=== PATIENT | female | born 1980 | race African-American/Black ===

== ENCOUNTER 2017-12-09 08:18 | Emergency (ER) | payer OTHER, MEDICAID, SELFPAY ==
[2017-12-09 08:27] VITALS: BP 109/66; PULSE 112; RESP 22; TEMP 37.7; O2SAT 100; BMI 35.6
[2017-12-09 09:26] LABS: Strep Scrn Group A (Rapid) Negative (Negative)
--- NOTE | 2017-12-09 10:02 | HMH.EDNVD ---
ED Disposition Clinical Impression: Diarrhea, Viral illness Disposition: Home, Self-Care Condition on Discharge: Fair Additional Instructions: 1- rest. 2- off work x 2 days 3- [employer] 16 oz q 4 4- observe 4-5 uop a day. 5- diarrhea panel as outpatient and follow up with Dr Campos in AM for a recheck and results. 6- imodium 2 mg q 6 prn diarrhea and bactrim DS po bid x one week . 7- retrun if needed to the ED for any new sx or not better. Referrals: Sha Villasenor MD [Primary Care Provider] - - Critical Care Critical Care Time: No Attestation: On 12/09/17, the high probability of a clinically significant, sudden or life threatening deterioration of the following system(s) required my full and direct attention, intervention and personal management. The time I documented below is in addition to time spent performing reported procedures but includes the following listed in this critical care notation. Medical Decision Making Vital Signs: 12/09/17 08:27 Temperature 99.9 F H Temperature Source Oral Pulse Rate [Right Brachial] 112 H Respiratory Rate 22 Blood Pressure [Right Arm] 109/66 Blood Pressure Mean [Right Arm] 80 Blood Pressure Source [Right Arm] Automatic Cuff Blood Pressure Position [Right Arm] Sitting 02 Sat by Pulse Oximetry 100 Oxygen Delivery Method Room Air - Lab Data Lab Results 12/09/17 08:50: Influenza Type A Ag Negative, Influenza Type B Ag Negative, Group A Strep Rapid Negative Orders (Tests/Meds): ED MEDICATIONS Discontinued Medications Generic Name Dose Route Start Last Admin Trade Name Freq PRN Reason Stop Dose Admin Loperamide HCl 2 mg 12/09/17 08:47 12/09/17 08:49 Imodium 2 Mg Capsule PO 12/09/17 08:48 2 mg ONCE ONE Administration ORDERS Category Date Time Status Strep Screen Confirmation Stat Micro 12/09/17 08:50 Received - Agustin Inquiry Pt receiving controlled substance: No Agustin was queried for this patient: No Medical Decision Making Narrative: Patient tested negative for influenza and strep throat. She had no more episodes of diarrhea during her ED stay. Feel to provide a sense. I offered her to do labs and x-rays but she declined. She was agreeable to use antidiarrhea medicine and use oral rehydration. Just to her to do a diarrhea panel with a follow-up with her primary care physician as an outpatient, she agreed. I repeated her abdominal examination prior to discharge and it was soft benign with no guarding no rigidity but she was tender in the right CVA area. Again the patient declined labs and x-rays but she agreed to take Bactrim antibiotic because she took it before. Nausea/Vomiting/Diarrhea HPI - General Chief complaint: Upper Respiratory Infection Stated complaint: sore throat diaherra body aches Mode of Arrival: Family Vehicle Limitations: No Limitations Description of Symptoms (Recalled from ER Triage Doc. 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 He has no past medical history no past surgical history. He claims that at 5 PM yesterday she developed diffuse body aches followed by 2 bouts of watery diarrhea. She missed work this morning and she came to the ED. denies having weakness chest pain abdominal pain vomiting hematemesis coffee-ground emesis bleeding per rectum or melanotic stool. Although she works in a assisted but she denies coming in contact with somebody who had the flu or similar symptoms of diarrhea. Denies recent history of antibiotic use. complaint: diarrhea Onset (ago): day(s) (started 5 PM yesterday.) Description of Vomiting: watery (brown diarrhea. no blood . ) Associated Abdominal Pain: No Relieving factors: none Associated symptoms: denies other symptoms - Related Data Home Medications Medication Instructions Recorded Confirmed No Known Home
--- NOTE | 2017-12-09 10:05 | ED_ITS ---
ED Disposition Clinical Impression: Diarrhea, Viral illness Disposition: Home, Self-Care Condition on Discharge: Fair Additional Instructions: 1- rest. 2- off work x 2 days 3- [employer] 16 oz q 4 4- observe 4-5 uop a day. 5- diarrhea panel as outpatient and follow up with Dr Campos in AM for a recheck and results. 6- imodium 2 mg q 6 prn diarrhea and bactrim DS po bid x one week . 7- retrun if needed to the ED for any new sx or not better. Referrals: Sha Villasenor MD [Primary Care Provider] - - Critical Care Critical Care Time: No Attestation: On 12/09/17, the high probability of a clinically significant, sudden or life threatening deterioration of the following system(s) required my full and direct attention, intervention and personal management. The time I documented below is in addition to time spent performing reported procedures but includes the following listed in this critical care notation. Medical Decision Making Vital Signs: 12/09/17 08:27 Temperature 99.9 F H Temperature Source Oral Pulse Rate [Right Brachial] 112 H Respiratory Rate 22 Blood Pressure [Right Arm] 109/66 Blood Pressure Mean [Right Arm] 80 Blood Pressure Source [Right Arm] Automatic Cuff Blood Pressure Position [Right Arm] Sitting 02 Sat by Pulse Oximetry 100 Oxygen Delivery Method Room Air - Lab Data Lab Results 12/09/17 08:50: Influenza Type A Ag Negative, Influenza Type B Ag Negative, Group A Strep Rapid Negative Orders (Tests/Meds): ED MEDICATIONS Discontinued Medications Generic Name Dose Route Start Last Admin Trade Name Freq PRN Reason Stop Dose Admin Loperamide HCl 2 mg 12/09/17 08:47 12/09/17 08:49 Imodium 2 Mg Capsule PO 12/09/17 08:48 2 mg ONCE ONE Administration ORDERS Category Date Time Status Strep Screen Confirmation Stat Micro 12/09/17 08:50 Received - Agustin Inquiry Pt receiving controlled substance: No Agustin was queried for this patient: No Medical Decision Making Narrative: Patient tested negative for influenza and strep throat. She had no more episodes of diarrhea during her ED stay. Feel to provide a sense. I offered her to do labs and x-rays but she declined. She was agreeable to use antidiarrhea medicine and use oral rehydration. Just to her to do a diarrhea panel with a follow-up with her primary care physician as an outpatient, she agreed. I repeated her abdominal examination prior to discharge and it was soft benign with no guarding no rigidity but she was tender in the right CVA area. Again the patient declined labs and x-rays but she agreed to take Bactrim antibiotic because she took it before. Nausea/Vomiting/Diarrhea HPI - General Chief complaint: Upper Respiratory Infection Stated complaint: sore throat diaherra body aches Mode of Arrival: Family Vehicle Limitations: No Limitations Description of Symptoms (Recalled from ER Triage Doc. 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 He has no past medical history no past surgical history. He claims that at 5 PM yesterday she developed diffuse body aches followed by 2 bouts of watery diarrhea. She missed work this morning and she ca
--- NOTE | 2017-12-09 10:18 | PC.NURSE ---
OFFERED TO DO LABS AND XRAYS ON PT BUT PT DECLINED. PT TO HAVE OUTPT DIARRHEA PANEL WITH THE RESULTS CALLED TO DR. DEL CID'S OFFICE. THIS IS PTS PCP.
[2017-12-09 10:19] VITALS: BP 97/61; PULSE 89; RESP 20; TEMP 37.3; O2SAT 96
== END 2017-12-09 10:30 | disposition home or self-care (01) ==
PROVIDERS: Emergency Provider Emergency Medicine; Family Provider Emergency Medicine; PCP Emergency Medicine
DX: B34.9 Viral infection, unspecified (principal); R19.7 Diarrhea, unspecified
CPT/HCPCS: 87275; 87276; 87430; 99282

== ENCOUNTER 2017-12-14 17:09 | Emergency (ER) | payer OTHER, MEDICAID, SELFPAY ==
[2017-12-14 17:25] VITALS: BP 124/85; PULSE 65; RESP 20; TEMP 36.9; O2SAT 100; BMI 34.9
--- NOTE | 2017-12-14 18:06 | HMH.EDUTC ---
[facility] – [place] Disposition Clinical Impression: Acute bronchitis Qualifiers: Bronchitis organism: unspecified organism Qualified Code(s): J20.9 - Acute bronchitis, unspecified Disposition: Home, Self-Care Condition on Discharge: Good Instructions: DI for Acute Bronchitis Additional Instructions: * start antibiotic today. Be sure to complete entire prescription even if feeling better. * Monitor Temp. Tylenol every 4 hours as needed no more then 5 times a day or 4000mg in 24 hours and/or ibuprofen every 6 hours as needed no more then 3200mg in 24 hours (as long as your primary care doctor has told you that it is ok to take both) for fever/aches/pain. ER if fever no less than 101 despite tylenol and ibuprofen * humidifier/vaporizer/hot steamy shower * Inhaler every 4-6 hours as needed like we discussed. If unsure how to use it, ask pharmacist to demonstrate how. Should help open airways and improve cough, wheezing, shortness of breath. * Mucinex during the day for your cough and cough suppressant only at night. Be sure to drink lots of water. Insurance may not cover a prescription of mucinex. Might be cheaper to get 400mg tablets and take 2 tablets morning, midday and evening all with lots of water. * Promethazine DM cough syrup will cause drowsiness. Use it only at night. No driving, operating machinery or caring for small children after taking it. * Start steroid today. Helps with inflammation therefore, cough and wheezing. Follow directions on package. Prescriptions: Albuterol Sulfate [Albuterol HFA Inhaler] 1 - 2 puffs IH Q4-6H PRN #1 inh PRN Reason: Shortness Of Breath Or Wheezing Azithromycin [Z-Andrew 250mg Tab] 250 mg PO UD DOSE PK #6 tab methylPREDNISolone [Medrol] 4 mg PO DIRECTED #1 tab.ds.pk Promethazine/Dextromethorphan [Promethazine-Dm Syrup] 5 - 10 ml PO HS PRN #120 ml MDD 30ML/DAY PRN Reason: Cough Referrals: Sha Villasenor MD [Primary Care Provider] - (IMMEDIATELY for new or worsening symptoms OR no noticeable improvement over the next 48-72 hours. 911 for difficulty breathing) Forms: Work/School Release Time of Disposition: 19:01 Medical Decision Making Vital Signs: 12/14/17 17:25 Temperature 98.5 F Temperature Source Temporal Artery Scan Pulse Rate [Left Brachial] 65 Respiratory Rate 20 Blood Pressure [Left Arm] 124/85 Blood Pressure Mean [Left Arm] 98 Blood Pressure Source [Left Arm] Automatic Cuff Blood Pressure Position [Left Arm] Sitting 02 Sat by Pulse Oximetry 100 Oxygen Delivery Method Room Air - Lab Data Lab results reviewed: Yes: I reviewed the patient's lab results. Lab Results 12/14/17 17:25: Influenza Type A Ag Negative, Influenza Type B Ag Negative Orders (Tests/Meds): ORDERS Category Date Time Status CXR 2 view (NOT portable) [XR chest 2V] Stat Exams 12/14/17 18:13 Taken - Radiology Data #1 Image(s): Chest Image Reviewed: Yes I reviewed the patient's radiology image w/the ED provider Preliminary Findings: Normal/NAD rvwd w/ Dr Saba Velez Inquiry Pt receiving controlled substance: No [facility] [place] HPI - General Stated complaint: chest congestion Time Seen by Provider: 12/14/17 18:06 Mode of Arrival: Ambulatory Source of Information: Patient Limitations: No Limitations Description of Symptoms (Recalled from Triage Doc. by RN): C/O CHEST HURTING, CHEST CONGESTION, SORE THROAT, COUGH HEENT Symptoms (Recalled from RN notes): Yes (SORE THROAT) Resp Symptoms (Recalled from RN notes): Yes (CHEST CONGESTIION, COUGH, CHEST HURTING) Skin Symptoms (Recalled from RN notes): No MS Symptoms (Recalled from RN notes): No Functional Status (Recalled from RN notes): N/A - History of Present Illness Provider Complaint: c/o cough, chest congestion, bodyaches, chills. Started w/ N/V/D/ fever 100-101 on , 5 days ago. Came to ER. Neg flu and strep. Dx 24 hour GI virus . N/V/D/ fever resolved with immodium but aches, chills, nonprod cough, rhinorrhea, sore throat
--- NOTE | 2017-12-14 18:13 | ED_ITS ---
[facility] [place] Clinical Impression: Acute bronchitis Qualifiers: Bronchitis organism: unspecified organism Qualified Code(s): J20.9 - Acute bronchitis, unspecified Disposition: Home, Self-Care Condition on Discharge: Good Instructions: DI for Acute Bronchitis Additional Instructions: * start antibiotic today. Be sure to complete entire prescription even if feeling better. * Monitor Temp. Tylenol every 4 hours as needed no more then 5 times a day or 4000mg in 24 hours and/or ibuprofen every 6 hours as needed no more then 3200mg in 24 hours (as long as your primary care doctor has told you that it is ok to take both) for fever/aches/pain. ER if fever no less than 101 despite tylenol and ibuprofen * humidifier/vaporizer/hot steamy shower * Inhaler every 4-6 hours as needed like we discussed. If unsure how to use it, ask pharmacist to demonstrate how. Should help open airways and improve cough, wheezing, shortness of breath. * Mucinex during the day for your cough and cough suppressant only at night. Be sure to drink lots of water. Insurance may not cover a prescription of mucinex. Might be cheaper to get 400mg tablets and take 2 tablets morning, midday and evening all with lots of water. * Promethazine DM cough syrup will cause drowsiness. Use it only at night. No driving, operating machinery or caring for small children after taking it. * Start steroid today. Helps with inflammation therefore, cough and wheezing. Follow directions on package. Prescriptions: Albuterol Sulfate [Albuterol HFA Inhaler] 1 - 2 puffs IH Q4-6H PRN #1 inh PRN Reason: Shortness Of Breath Or Wheezing Azithromycin [Z-Andrew 250mg Tab] 250 mg PO UD DOSE PK #6 tab methylPREDNISolone [Medrol] 4 mg PO DIRECTED #1 tab.ds.pk Promethazine/Dextromethorphan [Promethazine-Dm Syrup] 5 - 10 ml PO HS PRN #120 ml MDD 30ML/DAY PRN Reason: Cough Referrals: Sha Villasenor MD [Primary Care Provider] - (IMMEDIATELY for new or worsening symptoms OR no noticeable improvement over the next 48-72 hours. 911 for difficulty breathing) Forms: Work/School Release Time of Disposition: 19:01 Medical Decision Making Vital Signs: 12/14/17 17:25 Temperature 98.5 F Temperature Source Temporal Artery Scan Pulse Rate [Left Brachial] 65 Respiratory Rate 20 Blood Pressure [Left Arm] 124/85 Blood Pressure Mean [Left Arm] 98 Blood Pressure Source [Left Arm] Automatic Cuff Blood Pressure Position [Left Arm] Sitting 02 Sat by Pulse Oximetry 100 Oxygen Delivery Method Room Air - Lab Data Lab results reviewed: Yes: I reviewed the patient's lab results. Lab Results 12/14/17 17:25: Influenza Type A Ag Negative, Influenza Type B Ag Negative Orders (Tests/Meds): ORDERS Category Date Time Status CXR 2 view (NOT portable) [XR chest 2V] Stat Exams 12/14/17 18:13 Taken - Radiology Data #1 Image(s): Chest Image Reviewed: Yes I reviewed the patient's radiology image w/the ED provider Preliminary Findings: Normal/NAD rvwd w/ Dr Saba Velez Inquiry Pt receiving controlled substance: No [facility] [place] - General Stated complaint: chest congestion Time Seen by Provider: 12/14/17 18:06 Mode of Arrival: Ambulatory Source of Information: Patient Limitations: No Limitations Description of Symptoms (Recalled from Triage Doc. by RN): C/O CHEST HURTING, CHEST CONGESTION, SORE THROAT, COUGH HEENT Symptoms (Recalled from RN notes): Yes (SORE THROAT) Res
--- NOTE | 2017-12-14 18:13 | XR_ITS ---
XR chest 2V HISTORY: Cough and congestion ITS.REASON: flu like symptoms, worsening cough, previous smoke ORDERING PHYSICIAN: Demetrius Richards PATIENT AGE: 37 years COMPARISON: None available FINDINGS: Mild prominence of the cardiac silhouette. No CHF. Lungs are clear. No acute bony anomalies. IMPRESSION: Mild cardiomegaly otherwise negative
[2017-12-14 18:21] LABS: UTC Influenza A Antigen Negative (Negative); UTC Influenza B Antigen Negative (Negative)
[2017-12-14 19:13] VITALS: BP 136/92; PULSE 79; RESP 20; TEMP 36.6
== END 2017-12-14 19:13 | disposition home or self-care (01) ==
PROVIDERS: Emergency Provider Nurse Practitioner Family; Family Provider Emergency Medicine; PCP Emergency Medicine
DX: J20.9 Acute bronchitis, unspecified (principal); Z87.891 Personal history of nicotine dependence
CPT/HCPCS: 71046; 87804; 99202

== ENCOUNTER → 2018-03-10 12:04 | Outpatient (CLI) | payer OTHER, MEDICAID, SELFPAY ==
[2018-03-10 14:11] LABS: HCG,Quantitative 3286 mIU/mL
== END ==
PROVIDERS: Visit Provider Nurse Practitioner Obstetrics & Gynecology
DX: Z34.90 Encounter for supervision of normal pregnancy, unspecified, unspecified trimester (principal)
CPT/HCPCS: 36415; 84702

== ENCOUNTER → 2018-03-14 11:42 | Outpatient (CLI) | payer OTHER, MEDICAID, SELFPAY ==
[2018-03-14 12:01] LABS: Basophils % 0.5 % (0.1-2.0); Eosinophils # 0.2 K/mm3 (0.0-0.4); Eosinophils % 3.9 % (0.1-12.0); Hematocrit 35.2 % (37.0-47.0); Hemoglobin 11.4 g/dL (12.2-16.2); Lymphocytes # 1.7 K/mm3 (0.7-4.5); Mean Corpuscular HGB Conc 32.5 g/dL (31.8-35.4); Mean Corpuscular Hemoglobin 28.3 pg (27.0-31.2); Mean Corpuscular Volume 87.1 fl (81-99); Mean Platelet Volume 7.4 fl (7.4-10.4); Monocytes # 0.3 K/mm3 (0.1-1.0); Monocytes % 5.5 % (1.7-9.3); Neutrophils # 3.5 K/mm3 (1.8-7.8); Neutrophils % 60.1 % (37.0-80.0); Platelet Count 349 K/mm3 (142-424); Red Blood Count 4.04 M/mm3 (4.20-5.40); Red Cell Distribution Width 12.6 % (11.5-17.5); White Blood Count 5.8 K/mm3 (4.8-10.8)
[2018-03-15 09:16] LABS: Rapid Plasma Reagin Ab Titer Non Reactive (NonRea<1:1)
[2018-03-15 14:30] LABS: HIV Screen 4th Generation wRfx Non Reactive (Non Reactive); Hepatitis B Surface Antigen Negative (Negative); Hepatitis C Antibody <0.1 s/co ratio (0.0-0.9)
== END ==
PROVIDERS: Family Provider Emergency Medicine; PCP Emergency Medicine; Visit Provider Nurse Practitioner Obstetrics & Gynecology
DX: Z34.90 Encounter for supervision of normal pregnancy, unspecified, unspecified trimester (principal)
CPT/HCPCS: 36415; 85025; 86592; 86703; 86762; 86850; 87340; 87380; G0432

== ENCOUNTER → 2018-03-18 10:14 | Outpatient (CLI) | payer OTHER, MEDICAID, SELFPAY ==
--- NOTE | 2018-03-18 10:15 | US_ITS ---
US OB transvaginal Ordering Physician: Marquise Kelly MD Patient Age: 37 years: Female HISTORY: ITS.REASON: US OB Dates Early OB for dates TECHNIQUE: Transvaginal scanning COMPARISON : FINDINGS Single viable intrauterine gestation Cervix long and closed. . Early embryo with heart flicker noted. Yolk sac 0.57 cm. Heart rate = 128 BPM CRL = 0.7 cm = 6 weeks 5 days. With this the ultrasound EDWARDO = 11/06/2018 (This is compared to gestational age of 7 weeks 3 days based on LMP of 01/25/2018.) LEFT OVARY:. Nearly 5 cm x 2.85 cm x 2.3 cm. ] Cyst at left ovary measures 1.8 cm left & likely reflects corpus luteum cyst. Scattered other small follicles left ovary. RIGHT OVARY: 2.65 cm x 2.4 cm x 2.75 cm. . Right ovary appears normal. No fluid in cul-de-sac IMPRESSION: Single viable intrauterine gestation . Cardiac activity identified. [place]-rump length = 6 weeks 5 days Corpus luteum cyst left ovary noted right ovary unremarkable
== END ==
PROVIDERS: Family Provider Emergency Medicine; PCP Emergency Medicine; Visit Provider Nurse Practitioner Obstetrics & Gynecology
DX: O26.841 Uterine size-date discrepancy, first trimester (principal)
CPT/HCPCS: 76830

== ENCOUNTER → 2018-04-11 17:47 | Outpatient (REF) | payer OTHER, MEDICAID, SELFPAY ==
[2018-04-14 06:19] LABS: Neisseria gonorrhoeae, NAA Negative (Negative)
== END ==
LOC: LAB 17:47
PROVIDERS: Visit Provider Nurse Practitioner Obstetrics & Gynecology
DX: Z34.90 Encounter for supervision of normal pregnancy, unspecified, unspecified trimester (principal)
CPT/HCPCS: 87491; 87591

== ENCOUNTER 2018-06-10 20:14 | Observation (INO) ==
[2018-06-10 20:46] LABS: Basophils % 0.4 % (0.1-2.0); Eosinophils # 0.2 K/mm3 (0.0-0.4); Eosinophils % 2.3 % (0.1-12.0); Hematocrit 32.3 % (37.0-47.0); Hemoglobin 10.8 g/dL (12.2-16.2); Lymphocytes # 1.7 K/mm3 (0.7-4.5); Lymphocytes % 16.7 K/mm3 (10-50); Mean Corpuscular HGB Conc 33.4 g/dL (31.8-35.4); Mean Corpuscular Hemoglobin 28.8 pg (27.0-31.2); Mean Corpuscular Volume 86.4 fl (81-99); Mean Platelet Volume 7.2 fl (7.4-10.4); Monocytes # 0.6 K/mm3 (0.1-1.0); Monocytes % 5.9 % (1.7-9.3); Neutrophils # 7.6 K/mm3 (1.8-7.8); Neutrophils % 74.8 % (37.0-80.0); Platelet Count 326 K/mm3 (142-424); Red Blood Count 3.73 M/mm3 (4.20-5.40); Red Cell Distribution Width 12.7 % (11.5-17.5); White Blood Count 10.2 K/mm3 (4.8-10.8)
[2018-06-10 20:48] LABS: Activated Partial Thrombo Time 26.8 seconds (23.6-34.0); INR 0.96 (0.9-1.1); Prothrombin Time 9.9 seconds (9.4-11.8)
[2018-06-10 20:58] LABS: Albumin Level 2.9 gm/dL (3.4-5.0); Albumin/Globulin Ratio 0.6 (1.1-1.8); Anion Gap 11.6 mEq/L (5-15); Bilirubin,Total 0.3 mg/dL (0.2-1.0); Calcium 9.1 mg/dL (8.5-10.1); Globulin 4.6 gm/dl (1.3-3.2); Potassium 3.6 mmoL/L (3.5-5.1); Total Protein,Serum 7.5 gm/dL (6.4-8.2)
[2018-06-10 22:03] LABS: Appearance,Urine SL CLOUDY (Clear); Bilirubin,Urine Negative (Negative); Blood, Urine Negative (Negative); Color,Urine YELLOW (Yellow); Glucose,Urine (UA) Negative (Negative); Ketones,Urine Negative (Negative); Leukocyte Esterase,Urine Negative (Negative); Microscopic, Urine URINE MICROSCOPIC (MICROSCOPIC); PH,Urine 7.5 (5.0-8.5); Protein,Urine 1+ (Negative); Urobilinogen,Urine 0.2 EU/dl (0.2)
[2018-06-10 22:11] LABS: Amphetamine/Metha Screen,Urine Negative ng/mL (<1000); Barbiturates Screen,Urine Negative ng/mL (<200); Benzodiazepines Screen,Urine Negative ng/mL (<200); Cannabinoid Screen,Urine Negative ng/mL (<50); Cocaine Screen,Urine Negative ng/mL (<300); Methadone Screen,Urine Negative ng/mL (<300); Opiate Screen,Urine Negative ng/mL (<300); Phencyclidine Screen,Urine Negative ng/mL (<25)
[2018-06-10 22:32] LABS: Amorphous Sediment,Urine 3+ /lpf; Bacteria,Urine 1+ /lpf; WBC,Urine Occasional #/hpf (0-3)
--- NOTE | 2018-06-10 23:58 | History & Physical Report ---
OB - H&P: HPI Antepartum - History of Present Illness Chief complaint: prolapsed umbilical cord History of present illness: 37 yo presented to ED this evening with complaint of prolapsing umbilical cord. EGA 19 wks with EDC 11/06/18 (by 6 wk ultrasound); established patient of Dr. Kelly and had received care in his office with this , but recently transferred to Dr. Jimenez in [place] after 05/09/18 visit. She had only [address] Jimenez this past Wednesday06/07/18. She reports that she experienced a gush of clear fluid on Wednesday06/05/18, and has been continuously leaking fluid since that time. She reported these symptoms to Dr. Jimenez's office during her appointment on 06/07. She reports that +FHT were noted on 06/07 via doppler but that no physical exam or ultrasound were done at this appointment; she also reports that the physician did not comment about her leakage of fluid. She was scheduled for an ultrasound for anatomical survey at 20 wks in [place] and a return office appointment in 4 weeks. She continued to leak fluid throughout the week and has been wearing a pad since last Wednesday. She denies any vaginal bleeding, purulent vaginal discharge , acute abdominal pain, fever or chills. She was at work tonight and having lower abdominal/pelvic cramping and thought she needed to have a bowel movement. She went to the bathroom and noticed a prolapsed cord when she wiped after voiding. A small amount of vaginal bleeding was noted at that time, and she presented to the ED at [facility]. Upon confirmation of prolapsed POC, she was transferred up to L&D. When she arrived on L&D, an avulsed end of the umbilical cord was noted prolapsing through vaginal introitus. Vaginal bleeding was small/stable, and she was having moderate abdominal cramps. No heart tones were present, and IUFD was confirmed. Shortly after she was moved into labor bed, while medical history was being obtained, she reported the sensation that something had come out of her. An intact fetus had delivered into the bed, without any connection to the umbilical cord. No signs of life or heartbeat were present in the fetus, although it was not noted to be macerated. The fetus and expelled blood were foul smelling, but no purulence was identified. Temperature 99.3 and other vital signs stable. A cord clamp was placed on the end of the umbilical cord, which was still attached to the placenta, and a lavonne clamp placed distal to the cord clamp. Gental traction was placed on the cord, with avulsion of a 3cm segment of cord. A lavonne clamp was used to grasp the distal end of the cord before it retracted into the vagina. Cytotec 400 mcg was placed MI and the patient was consented for possible D&C in the event that retained placenta did not spontaneously deliver. After informed consent was obtained, she was given Stadol 1mg IV in response to request for pain medication. She was also given Ampicillin 2gm IV, Clindamycin 900mg IV and Flagyl 500mg IV. The patient continued to experience moderate/severe cramping but no spontaneous delivery of placental tissue. She was advised of the need for D&C to evacuate the retained placenta and the OR was prepped. Labs: WBC 10.2, Hgb 10.8, UDS negative, PT 9.9, PTT 0.96 - History of Present Criteria for establishing EDC:: LMP confirmed by 1st trimester US care: good care Ultrasounds: normal 1st trimester US Obstetrical complications: other (h/o 4 previous elective terminations and 2 spontaneous terminations) Medical complications: other (h/o cocaine addiction) - Labs Blood type: O (+) positive Rubella: immune RPR/VDRL: nonreactive HBsAG: negative HMH History I have reviewed the patient's past medical history: Yes Medical History: Denies:: Cancer, Diabetes Mellitus Type 1, Diabetes Mellitus Type 2, Hypertension, MRSA Other Surgeries: Yes: Dilation and Curettage (x 4) Amputation: No Fractures: No - *Social History Smoking Status: Former smoker Tobacco Type: cigarettes # Packs/Day (cigarettes): 15 Alcohol Intake: never Substance Use Type: former substance user *Family Hx:: Diabetes : 7 Para: 0 A: 6 (4 EAB, 2 SAB) Review of Systems - Review of Systems Review of systems:: pertinent systems reviewed and negative unless documented below - Constitutional Denies chills, Denies fever(s) - Eyes Denies change in vision - ENT Denies mouth lesions - *Cardiovascular Denies chest pain - *Respiratory Denies shortness of breath - *Gastrointestinal Reports abdominal pain, Reports cramping, Reports nausea, Denies vomiting - *Genitourinary Reports abnormal vaginal bleeding, Reports vaginal discharge (leaking amniotic fluid), Denies painful urination, Denies genital lesions - *Musculoskeletal Denies back pain - Integumentary/Breasts Denies rash - *Neurologic Denies confusion, Denies tingling/numbness/burning sensations, Denies dizziness - Psychiatric Denies anxiety, Denies depression - Hematologic/Lymphatic Denies easy bleeding, Denies easy bruising Meds Home Medications Medication Instructions Recorded Confirmed Type 1 tab PO QHS 04/11/18 06/10/18 History vitamin,calcium,chfggwzu-htfw-kwdce acid tablet Allergies Allergy/AdvReac Type Severity Reaction Status Date / Time No Known Allergies Allergy Verified 06/10/18 19:49 OB - H&P: Exam - Physical Exam Vital signs: Temp Pulse Resp BP Pulse Ox 99.3 F 77 22 139/74 98 06/10/18 21:16 06/10/18 21:16 06/10/18 21:16 06/10/18 21:16 06/10/18 21:16 - Constitutional no acute distress - Routine HEENT Exam Eye: Absent: conjunctival icterus, scleral injection ENT: Present: mucous membranes moist - Routine Respiratory Exam Present: CTA bilaterally. Absent: respiratory distress - Routine Cardiovascular Exam Present: RRR. Absent: tachycardia - Routine Abdominal Exam Present: soft. Absent: tenderness, distended, rebound, guarding, rigid - Routine Exam External: Absent: tenderness, lesions Comments: + foul smelling discharge, active drainage amniotic fluid and vaginal bleeding - Routine Extremities Exam Absent: edema - Routine Skin Exam Absent: rash - Routine Neurological Exam Present: alert, oriented X3. Absent: altered mental status - Routine Psychiatric Exam Present: normal affect - Additional findings No heart tones OB - Results - Labs Labs: Short CBC 06/10/18 Range/Units 20:07 WBC 10.2 (4.8-10.8) K/mm3 Hgb 10.8 L (12.2-16.2) g/dL Hct 32.3 L (37.0-47.0) % Plt Count 326 (142-424) K/mm3 [facility] 06/10/18 20:07 Sodium 136 Potassium 3.6 Chloride 102 Carbon Dioxide 26 BUN 7 Creatinine 0.64 Glucose 99 Calcium 9.1 Liver Function 06/10/18 Range/Units 20:07 Total Bilirubin 0.3 (0.2-1.0) mg/dL AST 13 L (15-37) U/L ALT 17 (12-78) U/L Alkaline Phosphatase 108 (46-116) U/L Albumin 2.9 L (3.4-5.0) gm/dL Urine 06/10/18 Range/Units 21:57 Urine Color Yellow (Yellow) Urine Appearance Sl cloudy (Clear) Urine pH 7.5 (5.0-8.5) Ur Specific [place] 1.020 (1.005-1.030) Urine Protein 1+ (Negative) Urine Glucose (UA) Negative (Negative) OB - A/P Antepartum (1) demise, less than 22 weeks Current visit: Yes Status: Acute (2) premature rupture of membranes Current visit: Yes Status: Acute (3) Chorioamnionitis Current visit: Yes Status: Acute (4) Retained placenta after delivery without hemorrhage but with other complication Current visit: Yes Status: Acute (5) Anemia affecting in second trimester Current visit: Yes Status: Acute (6) History of elective Problem details: x 4 Current visit: Yes Status: Acute - Additional Plan Additional Information:: Normal vaginal delivery of IUFD Retained placenta--consented for D&C; will proceed to OR Plan placenta to pathology Chornioamnionitis after prolonged ROM x 6 days--given amp, clinda, caitlin
--- NOTE | 2018-06-11 00:52 | Progress Note ---
[facility] Anesthesia Checklist - Patient Identification Patient Identification: Arm Band, Verbal (Name & ) (f) - Structural Data Admitted From: Inpatient Planned Operative Procedure/s: Suction D&C Consent for Planned Operative Procedure(s) Verified: Yes Verified Documents: Surgical Consent, History and Physical - NPO Status Verified Time NPO: 17:30 - Additional verifications Patient : Yes Anesthesia Reactions: No - Airway Assessment C-Spine Mobility Assessed: Yes TMJ Mobility Assessed: Yes Dentition: Good Dentition - Neurological Assessment Level of Consciousness: Awake Hx Seizures: No Numbness or tingling in extremities: No - Anesthesia Plan Anesthesia Risk discussed: Yes Anesthesia Plan: Verified ASA Class: II (Emergent) Anesthesia Type: General [facility] Anesthesia HX I have reviewed the patient's past medical history: Yes Medical History: Denies:: Cancer, Diabetes Mellitus Type 1, Diabetes Mellitus Type 2, Hypertension, MRSA Other Medical History: Reports: Other (hx of alcoholism, hx of drug abuse, obesity) Other Surgeries: No: No Previous Surgery, Amputation: No Fractures: No *Family Hx:: Diabetes
--- NOTE | 2018-06-11 00:53 | Progress Note ---
[facility] Anesthesia Record Part I Intake, IV Amount: 400 Estimated blood loss (mL): 300 Urine output (mL): 0 Blood Products used (#): none Blood Pressure: 123/76 SaO2: 100 Pulse Rate: 100 Respiratory Rate: 12 Temperature: 97.6 F Patient is:: Drowsy, Nasal O2, Stable Stable to PACU at:: 00:45
--- NOTE | 2018-06-11 00:54 | Progress Note ---
[facility] Anesthesia Record Part II Discharge Time: 01:15 Destination: Medical Surgical Department PACU nurse assessment reviewed?: Yes Patient Condition:: Good Anesthesia Complications:: None
--- NOTE | 2018-06-11 01:33 | Operative Note ---
Date of procedure: 06/11/18 Pre-op Diagnosis:: 1. PPROM 2. IUFD 3. Chorioamnionitis 4. Retained placenta after of IUFD 5. Anemia Post-op Diagnosis:: same Procedure performed:: Dilation and Curettage Surgeon:: Rima Benoit MD Anesthesia: AALIYAH Estimated blood loss (mL): 300 Operative findings:: retained placenta, grossly infected POC within uterus Operative note:: The patient was taken to the OR and general anesthesia administered. She was prepped/draped in lithotomy position. A weighted speculum was placed in vagina and villareal retractor used anteriorly. A large amount of the total placental tissue was prolapsing through the cervix and within the vaginal vault. This tissue was grasped with a ring forcep and removed with traction through the cervix. A single tooth tenaculum was placed on anterior lip of cervix. A #10 curved curette was used with the suction and curettage was performed over all norman of the uterine cavity. Sharp curettage was also performed until all tissue was removed from the uterus. Once the cavity texture confirmed all POC had been successfully evacuated from the uterus, all instruments were removed from her vagina, she was taken out of lithotomy position and awakened from anesthesia. She was taken to the PACU in stable condition. Condition: stable Disposition: PACU Specimens:: Placenta Complications:: none
[2018-06-11 07:28] LABS: Basophils % 0.1 % (0.1-2.0); Eosinophils # 0.3 K/mm3 (0.0-0.4); Eosinophils % 2.1 % (0.1-12.0); Hematocrit 30.9 % (37.0-47.0); Hemoglobin 10.1 g/dL (12.2-16.2); Lymphocytes # 0.7 K/mm3 (0.7-4.5); Lymphocytes % 4.1 K/mm3 (10-50); Mean Corpuscular HGB Conc 32.8 g/dL (31.8-35.4); Mean Corpuscular Hemoglobin 28.9 pg (27.0-31.2); Mean Platelet Volume 7.7 fl (7.4-10.4); Monocytes # 0.2 K/mm3 (0.1-1.0); Neutrophils # 14.7 K/mm3 (1.8-7.8); Neutrophils % 92.7 % (37.0-80.0); Platelet Count 312 K/mm3 (142-424); Red Blood Count 3.51 M/mm3 (4.20-5.40); Red Cell Distribution Width 12.9 % (11.5-17.5); White Blood Count 15.9 K/mm3 (4.8-10.8)
[2018-06-11 07:41] LABS: Lymphocytes % 4 % (10-50); Neutrophils % 96 % (42-76); RBC Morphology Normal; Total Cells Counted 100
--- NOTE | 2018-06-11 11:17 | Pharmacy Consult Notes ---
[facility] Pharmacy VTE Monitoring - Patient Demographics Admission date: 06/11/18 Report Date: 06/11/18 Time: 11:17 Allergies/Adverse Reactions: Patient Allergies No Known Allergies Allergy (Verified 06/11/18 01:41) Height: 1.65 m Weight: 95.368 kg Patient Problems: Current Active Problems Retained placenta after delivery without hemorrhage but with other complication (Acute) History of elective (Acute) Anemia affecting in second trimester (Acute) demise, less than 22 weeks (Acute) Chorioamnionitis (Acute) premature rupture of membranes (Acute) - VTE Risk Labs: VTE Related Lab Results Hgb 10.1 g/dL (12.2-16.2) L 06/11/18 07:20 Hct 30.9 % (37.0-47.0) L 06/11/18 07:20 Plt Count 312 K/mm3 (142-424) 06/11/18 07:20 PT 9.9 seconds (9.4-11.8) 06/10/18 20:07 INR 0.96 (0.9-1.1) 06/10/18 20:07 APTT 26.8 seconds (23.6-34.0) 06/10/18 20:07 BUN 7 mg/dL (7-18) 06/10/18 20:07 Creatinine 0.64 mg/dL (0.55-1.02) 06/10/18 20:07 Estimated Creat Clear 188 mL/min (0-300) 06/10/18 20:07 Was VTE Risk Assessment Performed: Yes VTE Score: 1 VTE Risk Level: Very Low Risk - Prophylaxis Types of VTE Prophylaxis: IPCS Thigh High (ICDS) Location of Applied Device: Bilateral Lower Extremeties
--- NOTE | 2018-06-11 12:06 | Discharge Summary ---
General - General Admission date:: 06/10/18 Discharge date: 06/11/18 HPI HPI: PPD #1 of 19 wk IUFD POD #1 D&C for retained placenta Tolerating regular diet, ambulating and voiding without difficulty Hospital Course Hospital Course: see HPI Objective Vital signs: Temp Pulse Resp BP Pulse Ox 98.9 F 84 18 105/62 97 06/11/18 08:10 06/11/18 08:10 06/11/18 08:10 06/11/18 08:10 06/11/18 08:50 no acute distress - *Routine HEENT Exam Head: Present: normocephalic, atraumatic ENT: Present: mucous membranes moist - *Routine Abdominal Exam Present: soft. Absent: tenderness, distended, guarding - *Routine Extremities Exam Present: edema. Absent: calf tenderness - *Routine Skin Exam Present: intact, dry. Absent: rash - *Routine Neurological Exam Present: alert, oriented X3 - Routine Psychiatric Exam Absent: depressed, anxious Results Labs on day of discharge: Labs from last 24 hours 06/11/18 06/10/18 06/10/18 07:20 23:15 21:57 WBC 15.9 H D RBC 3.51 L Hgb 10.1 L Hct 30.9 L MCV 88.0 MCH 28.9 MCHC 32.8 RDW 12.9 Plt Count 312 MPV 7.7 Neut % (Auto) 92.7 H Lymph % (Auto) 4.1 L [place] % (Auto) 1.0 L Eos % (Auto) 2.1 Baso % (Auto) 0.1 Neut # (Auto) 14.7 H Lymph # (Auto) 0.7 [place] # (Auto) 0.2 Eos # (Auto) 0.3 Baso # (Auto) 0.0 Total Counted 100 Neutrophils % (Manual) 96 H Lymphocytes % (Manual) 4 L Platelet Estimate Normal RBC Morphology Normal PT INR APTT Sodium Potassium Chloride Carbon Dioxide Anion Gap BUN Creatinine Estimated Creat Clear Estimated GFR Est GFR ( Amer) Glucose Calcium Total Bilirubin AST ALT Alkaline Phosphatase Total Protein Albumin Globulin Albumin/Globulin Ratio Urine Color Urine Appearance Urine pH Ur Specific [place] Urine Protein Urine Glucose (UA) Urine Ketones Urine Blood Urine Nitrate Urine Bilirubin Urine Urobilinogen Ur Leukocyte Esterase Urine RBC Urine WBC Ur Squamous Epith Cells Amorphous Sediment Urine Bacteria Urine Opiates Screen Negative Urine Methadone Screen Negative Ur Barbituates Screen Negative Ur Phencyclidine Scrn Negative Ur Amphetamines Screen Negative U Benzodiazepines Scrn Negative Urine Cocaine Screen Negative U Marijuana (THC) Screen Negative Blood Type O Positive Antibody Screen Negative Crossmatch ([facility]) See Detail 06/10/18 06/10/18 06/10/18 21:57 20:07 20:07 WBC RBC Hgb Hct MCV MCH MCHC RDW Plt Count MPV Neut % (Auto) Lymph % (Auto) [place] % (Auto) Eos % (Auto) Baso % (Auto) Neut # (Auto) Lymph # (Auto) [place] # (Auto) Eos # (Auto) Baso # (Auto) Total Counted Neutrophils % (Manual) Lymphocytes % (Manual) Platelet Estimate RBC Morphology PT 9.9 INR 0.96 APTT 26.8 Sodium 136 Potassium 3.6 Chloride 102 Carbon Dioxide 26 Anion Gap 11.6 BUN 7 Creatinine 0.64 Estimated Creat Clear 188 Estimated GFR 104 Est GFR ( Amer) 126 Glucose 99 Calcium 9.1 Total Bilirubin 0.3 AST 13 L ALT 17 Alkaline Phosphatase 108 Total Protein 7.5 Albumin 2.9 L Globulin 4.6 H Albumin/Globulin Ratio 0.6 L Urine Color Yellow Urine Appearance Sl cloudy Urine pH 7.5 Ur Specific [place] 1.020 Urine Protein 1+ Urine Glucose (UA) Negative Urine Ketones Negative Urine Blood Negative Urine Nitrate Negative Urine Bilirubin Negative Urine Urobilinogen 0.2 Ur Leukocyte Esterase Negative Urine RBC None Urine WBC Occasional Ur Squamous Epith Cells 3-5 Amorphous Sediment 3+ Urine Bacteria 1+ Urine Opiates Screen Urine Methadone Screen Ur Barbituates Screen Ur Phencyclidine Scrn Ur Amphetamines Screen U Benzodiazepines Scrn Urine Cocaine Screen U Marijuana (THC) Screen Blood Type Antibody Screen Crossmatch ([facility]) 06/10/18 20:07 WBC 10.2 RBC 3.73 L Hgb 10.8 L Hct 32.3 L MCV 86.4 MCH 28.8 MCHC 33.4 RDW 12.7 Plt Count 326 MPV 7.2 L Neut % (Auto) 74.8 Lymph % (Auto) 16.7 [place] % (Auto) 5.9 Eos % (Auto) 2.3 Baso % (Auto) 0.4 Neut # (Auto) 7.6 Lymph # (Auto) 1.7 [place] # (Auto) 0.6 Eos # (Auto) 0.2 Baso # (Auto) 0.0 Total Counted Neutrophils % (Manual) Lymphocytes % (Manual) Platelet Estimate RBC Morphology PT INR APTT Sodium Potassium Chloride Carbon Dioxide Anion Gap BUN Creatinine Estimated Creat Clear Estimated GFR Est GFR ( Amer) Glucose Calcium Total Bilirubin AST ALT Alkaline Phosphatase Total Protein Albumin Globulin Albumin/Globulin Ratio Urine Color Urine Appearance Urine pH Ur Specific [place] Urine Protein Urine Glucose (UA) Urine Ketones Urine Blood Urine Nitrate Urine Bilirubin Urine Urobilinogen Ur Leukocyte Esterase Urine RBC Urine WBC Ur Squamous Epith Cells Amorphous Sediment Urine Bacteria Urine Opiates Screen Urine Methadone Screen Ur Barbituates Screen Ur Phencyclidine Scrn Ur Amphetamines Screen U Benzodiazepines Scrn Urine Cocaine Screen U Marijuana (THC) Screen Blood Type Antibody Screen Crossmatch ([facility]) DS: Diagnosis - Discharge Diagnosis (1) demise, less than 22 weeks Status: Acute (2) premature rupture of membranes Status: Acute (3) Chorioamnionitis Status: Acute (4) Retained placenta after delivery without hemorrhage but with other complication Status: Acute (5) Anemia affecting in second trimester Status: Acute (6) History of elective Status: Acute Problem details: x 4 Discharge Plan - Patient Discharge Instructions ACTIVITY: Continue current activity DIET: regular diet - Follow up Plan Disposition: Home, Self-Care Prescriptions/Medication Reconciliation: No Action No Known Home Medications
== END 2018-06-11 13:35 | disposition home or self-care (01) ==
LOC: OBOUT 20:14 → OB 20:16 → INTOOBSV 23:31 → OB 23:31 → 2ND 06-11 01:58
PROVIDERS: ADMIT Obstetrics & Gynecology; ATTEND Obstetrics & Gynecology

== ENCOUNTER → 2019-01-17 13:27 | Outpatient (POV) | payer OTHER, SELFPAY | PROVIDERS: Visit Provider Dermatology | DX: Z00.00 Encounter for general adult medical examination without abnormal findings (principal) ==

== ENCOUNTER → 2019-12-18 14:08 | Outpatient (CLI) | payer BC, SELFPAY | PROVIDERS: Visit Provider Nurse Practitioner Obstetrics & Gynecology | DX: N92.6 Irregular menstruation, unspecified (principal) | CPT/HCPCS: 36415; 84702 ==

== ENCOUNTER → 2020-01-01 17:05 | Outpatient (CLI) | payer BC, SELFPAY ==
[2020-01-01 17:29] LABS: Basophils # 0.1 K/mm3 (0-0.2); Basophils % 0.7 % (0.1-2.0); Eosinophils # 0.3 K/mm3 (0.0-0.4); Eosinophils % 3.5 % (0.1-12.0); Hematocrit 35.4 % (37.0-47.0); Hemoglobin 11.8 g/dL (12.2-16.2); Lymphocytes % 20.8 % (10-50); Mean Corpuscular HGB Conc 33.3 g/dL (31.8-35.4); Mean Corpuscular Hemoglobin 29.3 pg (27.0-31.2); Mean Corpuscular Volume 87.9 fl (81-99); Mean Platelet Volume 7.3 fl (7.4-10.4); Monocytes # 0.4 K/mm3 (0.1-1.0); Neutrophils # 6.9 K/mm3 (1.8-7.8); Neutrophils % 70.9 % (37.0-80.0); Platelet Count 353 K/mm3 (142-424); Red Blood Count 4.03 M/mm3 (4.20-5.40); Red Cell Distribution Width 12.4 % (11.5-17.5); White Blood Count 9.7 K/mm3 (4.8-10.8)
[2020-01-03 09:10] LABS: HIV Screen 4th Generation wRfx Non Reactive (Non Reactive)
[2020-01-03 16:09] LABS: Hepatitis B Surface Antigen Negative (Negative); Hepatitis C Antibody 0.1 s/co ratio (0.0-0.9); Rapid Plasma Reagin Ab Titer Non Reactive (NonRea<1:1)
== END ==
PROVIDERS: Visit Provider Nurse Practitioner Obstetrics & Gynecology
DX: Z34.90 Encounter for supervision of normal pregnancy, unspecified, unspecified trimester (principal)
CPT/HCPCS: 36415; 85025; 86592; 86703; 86762; 86850; 87340; 87380; G0432

== ENCOUNTER → 2020-01-11 15:44 | Outpatient (CLI) | payer BC, SELFPAY ==
--- NOTE | 2020-01-11 15:45 | US_ITS ---
PROCEDURE: US OB TRANSVAGINAL CLINICAL INDICATION: for dates COMPARISON: OBTV US OB transvaginal from 03/18/2018 FINDINGS: An intrauterine gestational sac is present with a pole with a crown-rump length of 3.48cm correlating to gestational age of 10weeks 3days. heart tones are present with an FHR of 157bpm. Yolk sac is noted. There is a left ovarian cyst at 2.4 cm IMPRESSION: Live IUP at 10 weeks 3 days Estimated due date by Ultrasound is 08/05/2020 Dictated by: Cedric Millan MD 01/11/2020 16:35 Electronically signed by Cedric Millan MD in [place] 01/11/2020 16:35
== END ==
PROVIDERS: PCP Emergency Medicine; Visit Provider Nurse Practitioner Obstetrics & Gynecology
DX: O26.841 Uterine size-date discrepancy, first trimester (principal)
CPT/HCPCS: 76817

== ENCOUNTER 2020-03-30 10:07 | Outpatient (CLI) | payer BC, MEDICAID, SELFPAY ==
[2020-03-30 10:15] VITALS: BMI 35.9
[2020-03-30 10:40] VITALS: BP 130/75; PULSE 101; RESP 20; TEMP 37.2; O2SAT 97; BMI 35.9
[2020-03-30 11:43] LABS: Microscopic, Urine URINE MICROSCOPIC (MICROSCOPIC)
[2020-03-30 11:44] LABS: Appearance,Urine CLOUDY (Clear); Bilirubin,Urine Negative (Negative); Blood, Urine Negative (Negative); Color,Urine YELLOW (Yellow); Glucose,Urine (UA) Negative (Negative); Ketones,Urine Negative (Negative); Leukocyte Esterase,Urine 2+ (Negative); Nitrate,Urine Negative (Negative); PH,Urine 5.5 (5.0-8.5); Protein,Urine Negative (Negative); Specific Gravity, Urine >= 1.030 (1.005-1.030); Urobilinogen,Urine 0.2 EU/dl (0.2)
[2020-03-30 11:53] LABS: Amorphous Sediment,Urine 1+ /lpf; Bacteria,Urine 2+ /lpf; Calcium Oxalate Crystals,Urine Trace /lpf; RBC,Urine Occasional #/hpf (0-3); Squamous Epithelial Cell,Urine 20-50 #/hpf (0-5); WBC,Urine 20-50 #/hpf (0-3)
[2020-03-30 11:56] LABS: Barbiturates Screen,Urine Negative ng/ml (<200); Benzodiazepines Screen,Urine Negative ng/ml (<200)
[2020-03-30 11:57] LABS: Amphetamine/Metha Screen,Urine Negative ng/ml (<1000)
[2020-03-30 11:58] LABS: Cannabinoid Screen,Urine Negative ng/ml (<50); Methadone Screen,Urine Negative ng/ml (<300)
[2020-03-30 11:59] LABS: Cocaine Screen,Urine Negative ng/ml (<300)
[2020-03-30 12:00] LABS: Opiate Screen,Urine Negative ng/ml (<300); Phencyclidine Screen,Urine Negative ng/ml (<25)
== END 2020-03-30 14:05 | disposition home or self-care (01) ==
LOC: OBOUT 10:10 → OB 10:11
PROVIDERS: PCP Emergency Medicine; Visit Provider Nurse Practitioner Obstetrics & Gynecology
DX: O26.892 Other specified pregnancy related conditions, second trimester (principal); Z3A.20 20 weeks gestation of pregnancy
CPT/HCPCS: 59025; 80305; 81001; 87086; 96365; 96367; 96372; G0463

== ENCOUNTER 2020-03-30 23:15 | Inpatient (IN) | payer BC, MEDICAID, SELFPAY ==
[2020-03-30 23:13] VITALS: BMI 35.9
[2020-03-30 23:53] VITALS: BP 110/69; PULSE 90; RESP 18; TEMP 37.1; O2SAT 99; BMI 35.9
[2020-03-31 00:22] LABS: Coronavirus 19 IgG Antibody Negative (Negative); Coronavirus 19 IgM Antibody Negative (Negative)
[2020-03-31 02:34] VITALS: BP 113/65; PULSE 102; RESP 18; TEMP 37.1
--- NOTE | 2020-03-31 11:07 | HMH.OBAPHP ---
OB - H&P: HPI Antepartum - History of Present Illness Chief complaint: Contractions History of present illness: She is a 39-year-old 5 aborta 4 who is 21 weeks gestational age. Her last resulted in a delivery at 18 weeks. This she was seen at [facility] and they inserted a cerclage. She has been having contractions for the last week and they got quite strong on the day of admission. She has been taking nifedipine at home for the contractions. She denies any vaginal bleeding. Urinalysis showed 2+ leukocyte Estrace. - History of Present Criteria for establishing EDC:: LMP confirmed by 1st trimester US care: good care Ultrasounds: normal 1st trimester US, normal mid trimester US Obstetrical complications: labor Medical complications: none [facility] History I have reviewed the patient's past medical history: Yes Medical History: Denies:: Cancer, Diabetes Mellitus Type 1, Diabetes Mellitus Type 2, Hypertension, MRSA, Seizures *Have you ever received a pneumonia vaccine?: No *Have you received a flu vaccine this season?: No Other Medical History: Reports: Other Other Surgeries: Yes: Dilation and Curettage. No: No Previous Surgery, Amputation: No Fractures: No - *Social History Smoking Status: Never smoker Tobacco Type: cigarettes # Packs/Day (cigarettes): 15 Alcohol Intake: never Alcohol Intake Frequency:: other Substance Use Type: former substance user *Occupational Status:: employed Housing: house *Travel in the last 8 weeks: None Family Hx:: Diabetes Para: 0 Review of Systems - Review of Systems Review of systems:: pertinent systems reviewed and negative unless documented below Meds Home Medications Medication Instructions Recorded Confirmed Type ascorbic acid (vitamin C) 1,000 mg 1 g PO DAILY tab 01/01/20 03/25/20 History tablet prenat.vits,viviana,[id number] 1 tab PO DAILY 01/01/20 03/31/20 History PNV 153-FA 400 mcg-om3 35 mg-dha 1 tab PO DAILY #30 tab 02/26/20 03/25/20 Rx 25 mg-epa 5 mg-fish oil chew tablet RX: Ferrous Sulfate 325 mg PO DAILY 03/31/20 03/31/20 History RX: NIFEdipine [Procardia] 10 mg PO QID 03/31/20 03/31/20 History Allergies Allergy/AdvReac Type Severity Reaction Status Date / Time No Known Allergies Allergy Verified 03/25/20 16:25 OB - H&P: Exam - Physical Exam Vital signs: Temp Pulse Resp BP Pulse Ox 98.7 F 102 H 18 113/65 99 03/31/20 02:34 03/31/20 02:34 03/31/20 02:34 03/31/20 02:34 03/30/20 23:53 - Constitutional no acute distress - Routine HEENT Exam Head: Present: normocephalic Eye: Present: EOMI, PERRL ENT: Present: mucous membranes moist - Routine Neck Exam Present: supple, full ROM - Routine Respiratory Exam Absent: accessory muscle use (good air entry bilaterally), respiratory distress, wheezes, crackles - Routine Cardiovascular Exam Present: RRR. Absent: murmur - Routine Abdominal Exam Present: soft, normoactive bowel sounds. Absent: tenderness, distended, guarding - Routine Rectal Exam Patient deferred: visual exam, digital exam - Routine Exam Patient deferred: external exam, groin exam, perineal exam - Routine Extremities Exam Present: full ROM. Absent: cyanosis, edema - Routine Skin Exam Present: intact. Absent: cyanosis - Routine Neurological Exam Present: alert, oriented X3 - Routine Psychiatric Exam Present: normal affect OB - A/P Antepartum (1) labor in second trimester Current visit: Yes Status: Acute (2) Cervical cerclage suture present Current visit: Yes Status: Acute (3) Advanced maternal age (AMA) in Current visit: No Status: Chronic - Additional Plan Planning to breastfeed?: Yes Plan: other Additional Information:: We have admitted her for labor. I have started her on IV Ancef. We will start oral azithromycin as well. She has received nifedipine every
--- NOTE | 2020-03-31 11:11 | HMH.ACPN2 ---
Internal Medicine - PN: Subj *Date: 03/31/20 *Time: 11:11 Interval history: She is doing well this morning. She has had contractions overnight. We have just recently given her a Brethine about an hour ago and this seems to have helped with her contractions. She is also taking nifedipine 10 mg every 4 hours. Her blood pressure is stable. We will start a azithromycin this morning. She is receiving Ancef 1 g every 8 hours. Exam Vital signs and Labs for Last 24 Hours: Temp Pulse Resp BP Pulse Ox 98.7 F 102 H 18 113/65 99 03/31/20 02:34 03/31/20 02:34 03/31/20 02:34 03/31/20 02:34 03/30/20 23:53 Laboratory Results - last 24 hr 03/30/20 23:40: SARS-CoV-2 IgG Ab (Rapid) Negative, SARS-CoV-2 IgM Ab (Rapid) Negative I & O for Last 24 hours: Intake & Output 03/28/20 03/29/20 03/30/20 03/31/20 11:59 11:59 11:59 11:59 Weight 216 lb - Constitutional no acute distress - *Routine HEENT Exam Head: Present: normocephalic Eye: Present: EOMI, PERRL ENT: Present: mucous membranes moist Assessment and Plan (1) labor in second trimester Current visit: Yes Status: Acute Category: Medical Code(s): O60.02 - labor without delivery, second trimester (2) Cervical cerclage suture present Current visit: Yes Status: Acute Category: Medical Code(s): O34.30 - Maternal care for cervical incompetence, unspecified trimester (3) Advanced maternal age (AMA) in Current visit: No Status: Chronic Category: Medical - Assessment and plan all Dx Assessment and Plan for all problems:: She is having labor with occasional contractions. We discussed using magnesium sulfate. I will consider starting indomethacin for the next 48 hours.
[2020-03-31 19:48] VITALS: BP 129/78; PULSE 84; RESP 18; TEMP 36.9; O2SAT 99
[2020-03-31 23:32] VITALS: BP 116/57; PULSE 95; RESP 18; TEMP 36.8; O2SAT 99
[2020-04-01 04:00] VITALS: BP 97/51; PULSE 87; RESP 16; TEMP 36.7; O2SAT 99
--- NOTE | 2020-04-01 07:00 | US_ITS ---
PROCEDURE: US OB FOLLOW UP CLINICAL INDICATION: contractions, at risk for labor COMPARISON: OBTV US OB transvaginal from 03/18/2018 US OB TRANSVAGINAL from 01/11/2020 FINDINGS: There is a single live fetus present which is in breech presentation. heart and body motion noted. There is a 1 cm area slight decreased echogenicity within the cervical region anteriorly. This was present on the previous exam and could represent a complicated nabothian cyst. There has been prior cerclage with the cervical stitch noted. The cervix measures 1.8 cm in length. Average ultrasound age is 21 weeks 4 days. Gestational age 21 weeks 5 days. Following parameters are obtained: BPD 22 weeks 0 days, OFD 21 weeks 2 days, HC 20 weeks 5 days, AC 21 weeks 4 days, FL 21 weeks 6 days. Heart rate is 155 beats per minute. The placenta is anterior in implantation. No previa. No obvious anomalies. IMPRESSION: Live IUP at 21 weeks 4 days. All parameters correlate. Cervical cerclage present with shortened cervix Dictated by: Cedric Millan MD 04/01/2020 10:12 Electronically signed by Cedric Millan MD in [facility] 04/01/2020 10:12
[2020-04-01 20:17] VITALS: BP 116/71; PULSE 87; RESP 16; TEMP 36.9; O2SAT 98
[2020-04-01 23:58] VITALS: BP 111/74; PULSE 82; RESP 16; TEMP 36.5; O2SAT 98
[2020-04-02 04:03] VITALS: BP 122/80; PULSE 93; RESP 16; TEMP 36.8; O2SAT 99
[2020-04-02 08:00] VITALS: BP 110/75; PULSE 81; RESP 17; TEMP 36.9; O2SAT 99
--- NOTE | 2020-04-02 09:25 | HMH.ACPN2 ---
Internal Medicine - PN: Subj *Date: 04/01/20 *Time: 09:25 Interval history: She is doing well. We have started her on indomethacin 50 mg every 6 hours. She is also taking nifedipine 10 mg every 4 hours. Her contractions have completely settled. She is receiving IV Ancef as well as oral azithromycin. Exam Vital signs and Labs for Last 24 Hours: Temp Pulse Resp BP Pulse Ox 98.2 F 93 H 16 122/80 99 04/02/20 04:03 04/02/20 04:03 04/02/20 04:03 04/02/20 04:03 04/02/20 04:03 I & O for Last 24 hours: Intake & Output 03/30/20 03/31/20 04/01/20 04/02/20 11:59 11:59 11:59 11:59 Weight 216 lb - Constitutional no acute distress - *Routine HEENT Exam Head: Present: normocephalic Eye: Present: EOMI, PERRL ENT: Present: mucous membranes moist Assessment and Plan (1) labor in second trimester Current visit: Yes Status: Acute Category: Medical Code(s): O60.02 - labor without delivery, second trimester (2) Cervical cerclage suture present Current visit: Yes Status: Acute Category: Medical Code(s): O34.30 - Maternal care for cervical incompetence, unspecified trimester (3) Advanced maternal age (AMA) in Current visit: No Status: Chronic Category: Medical - Assessment and plan all Dx Assessment and Plan for all problems:: She is doing much better. We will continue with her Indocid for 48 hours. She is too early for steroids yet. She will continue with her antibiotics.
--- NOTE | 2020-04-02 09:28 | P.DS_ITS ---
General - General Admission date:: 03/30/20 Discharge date: 04/02/20 HPI HPI: She is a 39-year-old 5 para 0 at 21 weeks gestational age. She was having contractions at home and since this is her second episode of this we have elected to admit her. She has a history of delivery at 18 weeks and in this received a cerclage at 12 weeks. Hospital Course Hospital Course: She was admitted and started on IV antibiotics. Her urine showed 2+ leukocyte esterase so we elected to start IV Ancef as well as oral azithromycin. She received IV fluids. We initially started with nifedipine to see if this would help with her contractions and we increased the dosage to 10 mg every 4 hours. Despite this she continued to have contractions. We gave her 1 dose of Brethine and this settled her contractions however they restarted again within a few hours. As result of that failure I elected to use indomethacin. She has been receiving 50 mg of indomethacin DE for the last 48 hours and her contractions have completely settled. While hospitalized she had an ultrasound that showed a viable fetus in the breech presentation size and dates appropriate with normal fluid. Her cervix was measured transvaginally and found to be 1.8 cm in length. The cerclage is still in place. She has not had any bleeding. She does admit to some mucousy discharge while hospitalized. She has done well over the last 24 hours and has had no further episodes of contractions. We will have her follow-up with [facility] later today since she is extremely concerned about this labor and the cerclage. She expressed a desire to go to if she is imminently going to deliver. We will plan to discharge her home today. She will follow-up with me again next week. She will continue with her nifedipine 10 mg every 4-6 hours. She will likely want a consult at but will see [facility] high risk this afternoon. Her condition on discharge is stable and improved. Objective Vital signs: Temp Pulse Resp BP Pulse Ox 98.2 F 93 H 16 122/80 99 04/02/20 04:03 04/02/20 04:03 04/02/20 04:03 04/02/20 04:03 04/02/20 04:03 no acute distress - *Routine HEENT Exam Head: Present: normocephalic Eye: Present: EOMI, PERRL ENT: Present: mucous membranes moist DS: Diagnosis - Discharge Diagnosis (1) labor in second trimester Status: Acute (2) Cervical cerclage suture present Status: Acute (3) Advanced maternal age (AMA) in Status: Chronic Discharge Plan - Patient Discharge Instructions ACTIVITY: Limited activity DIET: continue same diet - Follow up Plan Disposition: Home, Self-Detention Medications: Home Medications Medication Instructions Recorded Confirmed Type prenat.vits,viviana,[id number] 1 tab PO DAILY 01/01/20 03/31/20 History RX: Ferrous Sulfate 325 mg PO DAILY 03/31/20 03/31/20 History RX: NIFEdipine [Procardia] 10 mg PO QID 03/31/20 03/31/20 History Prescriptions/Medication Reconciliation: Continued prenat.vits,viviana,[id number] 1 tab PO DAILY RX: Ferrous Sulfate 325 mg PO DAILY RX: NIFEdipine [Procardia] 10 mg PO QID - Problem Reconciliation Problems Reviewed?: Yes
== END 2020-04-02 11:50 | disposition home or self-care (01) | DRG 833 ==
LOC: OBOUT 23:18 → OB 04-01 06:24
PROVIDERS: Admitting Provider Nurse Practitioner Obstetrics & Gynecology; PCP Emergency Medicine; Visit Provider Nurse Practitioner Obstetrics & Gynecology
DX: O60.02 Preterm labor without delivery, second trimester (principal); Z3A.21 21 weeks gestation of pregnancy
CPT/HCPCS: 59025; 76816; 86328; 96372; G0463

== ENCOUNTER 2020-12-18 12:21 | Emergency (ER) | payer OTHER, SELFPAY ==
[2020-12-18 12:38] VITALS: BP 119/78; PULSE 65; RESP 16; TEMP 36.6; O2SAT 100; BMI 35.7
--- NOTE | 2020-12-18 13:02 | HMH.EDUTC ---
[facility] – [place] Disposition Clinical Impression: Muscle spasm Low back pain Qualifiers: Chronicity: unspecified Back pain laterality: midline Sciatica presence: without sciatica Qualified Code(s): M54.5 - Low back pain Disposition: Home, Self-Care Condition on Discharge: Good Instructions: Cyclobenzaprine, Etodolac, DI for Muscle Spasm Additional Instructions: *Etodolac ashwin 6 hours with meal as needed for pain/inflammation *Not additional anti-inflammatory like motrin, aleve, advil with the above amount of Etodolac. You can still take Tylenol every 4 hours as needed if you need something else for pain *Ice 20 minutes every 2 hours for the first 48 hours after the initial injury followed by moist heat every 20 minutes 3-4 times a day to affected area *Muscle relaxer every 8 hours as needed for muscle spasms but remember, it WILL cause drowsiness You cannot take it and drive, operate machinery or care for small children. *Keep this area active, no movement leads to more stiffness, However take it easy and avoid heavy lifting pushing or pulling *Follow up with you family doctor if no improvement for further treatment Return if needed Straight to ER Do not take while working Prescriptions: Cyclobenzaprine HCl [Flexeril 10mg tablet] 10 mg PO Q8HP PRN 10 Days #30 tab PRN Reason: Muscle Spasm Transmission Status: Received by [facility] Etodolac [Etodolac 200mg Cap*] 200 mg PO Q6H #20 cap Transmission Status: Received by [facility] Referrals: Sha Villasenor MD [Primary Care Provider] - As needed Forms: Work/School Release Time of Disposition: 13:28 Medical Decision Making - Agustin Inquiry Pt receiving controlled substance: No Agustin was queried for this patient: No Vital Signs: 12/18/20 12:38 12/18/20 13:21 Temperature 97.8 F 98 F Temperature Source Tympanic Pulse Rate 66 Pulse Rate [Right] 65 Respiratory Rate 16 14 Blood Pressure 121/73 Blood Pressure [Right Arm] 119/78 Blood Pressure Mean [Right Arm] 91 Blood Pressure Source [Right Arm] Automatic Cuff Blood Pressure Position [Right Arm] Sitting 02 Sat by Pulse Oximetry 100 Medical Decision Narrative: Patient states that she was recently seen and treated for this and was given Methocarbamol and it helped a little but since going back to work symptoms returned and she is having spasms again in her lower back and right shoulder [facility] [place] HPI - General Stated complaint: pain in Rt shoulder/lower back, no ao Time Seen by Provider: 12/18/20 13:02 Mode of Arrival: Ambulatory Source of Information: Patient Limitations: No Limitations Description of Symptoms (Recalled from Triage Doc. by RN): PT JUST WENT BACK TO [facility] ON WEDNESDAY AND IS NOW HAVING PAIN HER LOWER BACK(DOES NOT RADIATE) , AND HER NECK RADIATING TO RIGHT SHOULDER. SHE BELIEVES ITS JUST SORENESS FROM THE MANUAL LABOR. HOWEVER SHE STATES ITS SHARP PAIN. HEENT Symptoms (Recalled from RN notes): No Resp Symptoms (Recalled from RN notes): No Skin Symptoms (Recalled from RN notes): No MS Symptoms (Recalled from RN notes): Yes (LOWER BACK, NECK AND RIGHT ARM PAIN. NO INJURY.) Functional Status (Recalled from RN notes): NA - History of Present Illness Provider Complaint: Patient states that she had been off work for several months and recently went back States that she thinks she over did it and having muscle spasm like pain in her lower back and right shoulder area States that she has had similar spasms before like this and had to take muscle relaxers. Denies known injury - Related Data Home Medications Medication Instructions Recorded Confirmed No Known Home Medications 12/18/20 12/18/20 Previous Rx's Medication Instructions Recorded Cyclobenzaprine HCl [Flexeril 10mg 10 mg PO Q8HP PRN 10 Days #30 tab 12/18/20 tablet] Etodolac [Etodolac 200mg Cap*] 200 mg PO Q6H #20 cap 12/18/20 Allergies Allergy/AdvReac Type Severity Reaction Status Date / Time No Known All
[2020-12-18 13:21] VITALS: BP 121/73; PULSE 66; RESP 14; TEMP 36.6
== END 2020-12-18 13:34 | disposition home or self-care (01) ==
PROVIDERS: Emergency Provider Nurse Practitioner; PCP Emergency Medicine
DX: M25.511 Pain in right shoulder (principal); M62.830 Muscle spasm of back; F19.11 Other psychoactive substance abuse, in remission
CPT/HCPCS: 99202; G0463

== ENCOUNTER → 2021-01-02 13:16 | Outpatient (CLI) | payer OTHER, SELFPAY ==
--- NOTE | 2021-01-02 13:22 | MM_ITS ---
PROCEDURE: MM DIG SCREENING MAMM BI W/CAD Digital Breast Tomosynthesis Included CLINICAL INDICATION: Routine Screening Mammogram There is no personal or family history of breast cancer. COMPARISON: This is a baseline screening exam, patient without complaints TECHNIQUE: Standard CC and MLO images and 3D Tomosynthesis was obtained. R2 CAD reviewed. FINDINGS: Moderate scattered fibroglandular densities are seen throughout breasts there is a small nodular density with smooth borders central portion right breast and a similar density outer quadrant left these have benign features but since this is a baseline study recommend the patient return for ultrasound examination. IMPRESSION: Diffuse breast density with nodular lesions in each breast BI-RAD Category: 0 Need Additional Imaging Evaluation FOLLOW-UP: IMM Immediate Follow-up Recommended (A letter has been sent to the patient regarding results of the study.) Dictated by: Dr. Adrian Zapien MD 01/11/2021 09:47 Dr. Adrian Zapien MD in [place] 01/11/2021 09:47
== END ==
PROVIDERS: PCP Emergency Medicine; Visit Provider Nurse Practitioner Obstetrics & Gynecology
DX: Z12.31 Encounter for screening mammogram for malignant neoplasm of breast (principal)
CPT/HCPCS: 77063; 77067

== ENCOUNTER 2021-10-06 16:14 | Emergency (ER) | payer OTHER, SELFPAY ==
[2021-10-06 18:52] VITALS: BP 119/75; PULSE 82; RESP 18; TEMP 37.4; O2SAT 95; BMI 37.3
[2021-10-06 18:52] LABS: UTC Strep Screen (Rapid) Negative (Negative)
--- NOTE | 2021-10-06 18:58 | HMH.EDUTC ---
[facility] – [place] Disposition Clinical Impression: Viral syndrome, Other malaise Disposition: Home, Self-Care Condition on Discharge: Good Instructions: Preventing the Spread of Coronavirus Discharge Instructions, DI for COVID-19 (Suspected or Confirmed ) Additional Instructions: Drink plenty of fluids. Take tylenol or ibuprofen for pain or fever. Take the medications as directed. Follow up with your regular doctor. GO TO THE ER FOR ANY WORSENING SYMPTOMS Quarantine until you know the results of your covid-19 test. If it is positive, the health department should call you and give you further instructions about your length of Quarantine and other things. Notify your school or workplace of your results and follow their instructions regarding return to work/school. The cough medication (promethazine dm) will make you drowsy, so don't drive or operate heavy machinery after taking it. Prescriptions: Promethazine/Dextromethorphan [Promethazine-Dm Syrup] 5 ml PO Q6HP PRN #240 ml PRN Reason: Cough Transmission Status: [facility] Ondansetron [Zofran 4mg ODT] 4 mg PO Q8HP PRN #20 tab PRN Reason: Nausea Transmission Status: Pending to [facility] Benzonatate [Benzonatate 100mg cap] 100 mg PO TIDP PRN #30 cap PRN Reason: Cough Transmission Status: P[facility] to [facility] Referrals: Sha Villasenor MD [Primary Care Provider] - Time of Disposition: 19:35 Medical Decision Making - Medical Records Medical records reviewed: No: I reviewed the patient's medical records. - Agustin Inquiry Pt receiving controlled substance: No Vital Signs: 10/06/21 18:52 Temperature 99.4 F Temperature Source Oral Pulse Rate [Left] 82 Respiratory Rate 18 Blood Pressure [Right Arm] 119/75 Blood Pressure Mean [Right Arm] 89 02 Sat by Pulse Oximetry 95 - Lab Data Lab Results 10/06/21 18:51: Strep Scn Rapid Clinic Negative Orders (Tests/Meds): ORDERS Category Date Time Status Full Resp Panel w/COVID ([facility]) Routine Lab 10/06/21 19:09 Ordered Strep Screen Confirmation Routine Micro 10/06/21 18:51 Received [facility] [place] HPI - General Stated complaint: sympoms following covid booster 10/01 Time Seen by Provider: 12/13/21 18:58 - History of Present Illness Provider Complaint: She states that she began feeling very bad with body aches, fatigue and a headache 2 days ago. She did get the covid-19 booster the day before her symptoms began. She denies any known exposure to someone with covid-19. She states that this might be the booster shot making her feel this bad, but she did not feel bad at all with the first 2 covid-19 vaccinations. She does not know for sure which vaccine she has took. She denies any fever, but she has had some chilling. She is here because she is concerned that she might have caught covid-19 around the time she took the booster and she has a 17 month old daughter that was born 4 month premature. That child has some lung issues and difficulty breathing at times anyway and she does not want to give her covid-19. - Related Data Home Medications Medication Instructions Recorded Confirmed hydroxyzine HCl 25 mg tablet 25 mg PO tab 01/01/21 01/01/21 Previous Rx's Medication Instructions Recorded Cyclobenzaprine HCl [Flexeril 10mg 10 mg PO Q8HP PRN 10 Days #30 tab 12/18/20 tablet] Etodolac [Etodolac 200mg Cap*] 200 mg PO Q6H #20 cap 12/18/20 metronidazole 500 mg tablet 500 mg PO BID 7 Days #14 tab 01/01/21 metronidazole 500 mg tablet 500 mg PO BID 14 Days #28 tab 02/04/21 phentermine 37.5 mg tablet 37.5 mg PO DAILY #30 tab 02/12/21 Benzonatate [Benzonatate 100mg 100 mg PO TIDP PRN #30 cap 10/06/21 cap] Ondansetron [Zofran 4mg ODT] 4 mg PO Q8HP PRN #20 tab 10/06/21 Promethazine/Dextromethorphan 5 ml PO Q6HP PRN #240 ml 10/06/21 [Promethazine-Dm Syrup] Allergies Allergy/AdvReac Type Severity Reaction Status Date / Time No Known
[2021-10-06 19:26] LABS: Adenovirus,PCR Not Detected (NotDetected); Bordetella Pertussis Not Detected (NotDetected); Chlamydophila Pneumoniae, PCR Not Detected (NotDetected); Coronavirus 19, PCR Not Detected (NotDetected); Coronavirus 229E Not Detected (NotDetected); Coronavirus NL63 Not Detected (NotDetected); Coronavirus OC43 Not Detected (NotDetected); Coronovirus HKU1,PCR Not Detected (NotDetected); Influenza A, PCR Not Detected (NotDetected); Influenza AH1, 2009 Not Detected (NotDetected); Influenza AH1, PCR Not Detected (NotDetected); Influenza AH3,PCR Not Detected (NotDetected); Influenza B, PCR Not Detected (NotDetected); Mycoplasma Pneumoniae, PCR Not Detected (NotDetected); Parainfluenza 1, PCR Not Detected (NotDetected); Parainfluenza 2, PCR Not Detected (NotDetected); Parainfluenza 3, PCR Not Detected (NotDetected); Parainfluenza 4, PCR Not Detected (NotDetected); Respiratory Syncytial Virus Not Detected (NotDetected); Rhinovirus/Enterovirus Not Detected (NotDetected)
[2021-10-06 19:38] VITALS: BP 119/75; PULSE 82; RESP 18; TEMP 37.4
[2021-10-06 22:38] LABS: Human Metapneumovirus Detected (NotDetected)
== END 2021-10-06 19:41 | disposition home or self-care (01) ==
PROVIDERS: Emergency Provider Nurse Practitioner Family; PCP Emergency Medicine
DX: B34.9 Viral infection, unspecified (principal); Z20.822 Contact with and (suspected) exposure to COVID-19
CPT/HCPCS: 87581; 87632; 87798; 87880; 99203; C9803; G0463; U0003; U0005

== ENCOUNTER 2021-11-06 09:03 | Emergency (ER) | payer OTHER, SELFPAY ==
[2021-11-06 09:10] VITALS: BP 152/77; PULSE 75; RESP 22; TEMP 37.6; O2SAT 96; BMI 37.6
--- NOTE | 2021-11-06 09:56 | HMH.EDUTC ---
[facility] – [place] Disposition Clinical Impression: Pharyngitis Qualifiers: Pharyngitis/tonsillitis etiology: unspecified etiology Qualified Code(s): J02.9 - Acute pharyngitis, unspecified Disposition: Home, Self-Care Condition on Discharge: Good Instructions: Sinusitis, Sore Throat, Cough Additional Instructions: *Monitor Temp, Over the counter Motrin or Tylenol as directed/as needed Tylenol every 4 hours and Motrin every 6 hours (as long as your family doctor has told you that you can take it) for fever or pain. and straight to ER if unable to lower temp less than 101.0 after medication given *Warm salt water gargles may help to soothe the throat *Throat Lozenges *Warm fluids like tea with honey may help to soothe the throat *Sleep elevated *Humidifier/Vaporizer Your throat swab was sent for culture. Those results are typically sent to your primary care. Be sure to follow up in 2-3 days with your family doctor/primary care physician if no improvement so they can review those result and treat if necessary. If you don?t have a primary care doctor, I recommend you get one but in the mean time, you will have to return to a walk in clinic Follow up IMMEDIATELY for new or worsening symptoms or no Noticeable improvement over the next 48-72 hours. 911 for difficulty breathing or swallowing Prescriptions: Benzonatate [Benzonatate 100mg cap] 100 mg PO Q8HP PRN #15 cap PRN Reason: Cough Transmission Status: Pending to [facility] Cefdinir [Omnicef 300mg Capsule] 300 mg PO BID #20 cap Transmission Status: Pending to [facility] Referrals: Sha Villasenor MD [Primary Care Provider] - As needed Time of Disposition: 10:02 Medical Decision Making - Agustin Inquiry Pt receiving controlled substance: No Agustin was queried for this patient: No Vital Signs: 11/06/21 09:10 Temperature 99.6 F Temperature Source Temporal Artery Scan Pulse Rate [Right Brachial] 75 Respiratory Rate 22 Blood Pressure [Right Arm] 152/77 H Blood Pressure Mean [Right Arm] 102 Blood Pressure Source [Right Arm] Automatic Cuff Blood Pressure Position [Right Arm] Sitting 02 Sat by Pulse Oximetry 96 Oxygen Delivery Method Room Air - Lab Data Lab results reviewed: Yes: I reviewed the patient's lab results. [facility] – [place] HPI - General Stated complaint: sore throat,glands swollen Time Seen by Provider: 11/06/21 09:56 Mode of Arrival: Ambulatory Source of Information: Patient Limitations: No Limitations Description of Symptoms (Recalled from Triage Doc. by RN): PATIENT C/O COUGH, RUNNY NOSE, AND STATES GLANDS IN HER NECK AND SWOLLEN AND PAINFUL. HEENT Symptoms (Recalled from RN notes): Yes Resp Symptoms (Recalled from RN notes): Yes Skin Symptoms (Recalled from RN notes): No MS Symptoms (Recalled from RN notes): No Functional Status (Recalled from RN notes): WNL - History of Present Illness Provider Complaint: Patient states that she has been having cough, nasal congestion sore throat and glands in her throat is swollen and tender State that over all she was not feeling well State that she came in to get checked - Related Data Previous Rx's Medication Instructions Recorded Benzonatate [Benzonatate 100mg 100 mg PO Q8HP PRN #15 cap 11/06/21 cap] Cefdinir [Omnicef 300mg Capsule] 300 mg PO BID #20 cap 11/06/21 Allergies Allergy/AdvReac Type Severity Reaction Status Date / Time No Known Allergies Allergy Verified 01/01/21 16:05 - Worker's Comp Is this a Worker's Comp case?: No [facility] History - Hepatitis A Screen Drug use history?: No High risk sexual behaviors?: No History of sexually transmitted infection?: No Currently employed?: No Childcare worker?: No Do you have indoor plumbing?: Yes Do you have electricity?: Yes Attestation statement:: This patient has been screened for Hepatitis A risk factors. I have reviewed the patient's past medical history: Yes Medical History: Denies:: Cancer, Diabet
[2021-11-06 09:57] LABS: UTC Strep Screen (Rapid) Negative (Negative)
[2021-11-06 10:03] VITALS: BP 152/77; PULSE 75; RESP 22; TEMP 37.6; O2SAT 96
== END 2021-11-06 10:10 | disposition home or self-care (01) ==
PROVIDERS: Emergency Provider Nurse Practitioner; PCP Emergency Medicine
DX: J02.9 Acute pharyngitis, unspecified (principal)
CPT/HCPCS: 87880; 99202; G0463

== ENCOUNTER → 2021-12-03 09:27 | Outpatient (CLI) | payer OTHER, SELFPAY | PROVIDERS: PCP Emergency Medicine; Visit Provider Physician Assistant | DX: R06.81 Apnea, not elsewhere classified (principal); R06.83 Snoring | CPT/HCPCS: 95806 ==

== ENCOUNTER 2021-12-07 11:44 | Emergency (ER) | payer OTHER, SELFPAY ==
--- NOTE | 2021-12-07 12:21 | HMH.EDUTC ---
[facility] [place] Clinical Impression: Viral syndrome, Gastroenteritis Disposition: Home, Self-Care Condition on Discharge: Good Instructions: Viral Gastroenteritis, DI for Viral Gastroenteritis -- Adult Additional Instructions: Drink plenty of fluids. Take tylenol or ibuprofen for pain or fever. Take the medications as directed. Follow up with your regular doctor. GO TO THE ER FOR ANY WORSENING SYMPTOMS Quarantine until you know the results of your covid-19 test. Notify your school or workplace of your results and follow their instructions regarding return to work/school. Prescriptions: Ibuprofen [Ibuprofen 800mg Tablet] 800 mg PO Q8HP PRN #30 tab PRN Reason: Moderate Pain Transmission Status: Received by [facility] Ondansetron [Zofran 4mg ODT] 4 mg PO Q8HP PRN #20 tab PRN Reason: Nausea Transmission Status: Received by [facility] Referrals: Sha Villasenor MD [Primary Care Provider] - Forms: Work/School Release Time of Disposition: 14:49 Medical Decision Making - Medical Records Medical records reviewed: No: I reviewed the patient's medical records. - Agustin Inquiry Pt receiving controlled substance: No Vital Signs: 12/07/21 12:25 12/07/21 15:17 Temperature 99.2 F 99.2 F Temperature Source Oral Pulse Rate 103 H Pulse Rate [Left] 103 H Respiratory Rate 14 14 Blood Pressure 110/74 Blood Pressure [Right Arm] 110/74 Blood Pressure Mean [Right Arm] 86 02 Sat by Pulse Oximetry 98 - Lab Data Lab Results 12/07/21 12:11: Influenza Type A Ag Negative, Influenza Type B Ag Negative 12/07/21 13:29: WBC 6.3, RBC 4.70, Hgb 13.5, Hct 42.1, MCV 89.7, MCH 28.8, MCHC 32.1, RDW 12.8, Plt Count 332, MPV 8.1, Neut % (Auto) 83.9 H, Lymph % (Auto) 9.9 L, [place] % (Auto) 5.3, Eos % (Auto) 0.5, Baso % (Auto) 0.4, Neut # (Auto) 5.3, Lymph # (Auto) 0.6 L, [place] # (Auto) 0.3, Eos # (Auto) 0.0, Baso # (Auto) 0.0 12/07/21 13:29: Sodium 131 L, Potassium 3.6, Chloride 105, Carbon Dioxide 21 L, Anion Gap 8.6, BUN 10, Creatinine 0.70, Estimated Creat Clear 169, Estimated GFR 92, Est GFR ( Amer) 112, Glucose 102 H, Calcium 7.9 L Result diagrams: 12/07/21 13:29 12/07/21 13:29 Orders (Tests/Meds): ED MEDICATIONS Discontinued Medications Generic Name Dose Route Start Last Admin Trade Name Freq PRN Reason Stop Dose Admin Sodium Chloride 1,000 mls @ 999 mls/hr 12/07/21 15:00 12/07/21 15:02 Sod Chlor 0.9% 1000ml Bag IV 12/07/21 16:00 999 mls/hr .Q1H1M RASHID Administration Ketorolac Tromethamine 30 mg 12/07/21 13:10 12/07/21 13:51 Ketorolac 30mg/Ml Vial IV 12/07/21 13:11 30 mg ONCE ONE Administration Ondansetron HCl 4 mg 12/07/21 13:50 12/07/21 13:51 Ondansetron 4mg/2ml Vial IV 12/07/21 13:51 4 mg ONCE ONE Administration ORDERS Category Date Time Status Covid-19 Nasal PCR ([facility]) Routine Lab 12/07/21 12:11 Received [facility] [place] - General Stated complaint: diarrhea, vomiting, chills, fever, tired Time Seen by Provider: 12/07/21 12:21 - History of Present Illness Provider Complaint: She states that since last night she has been having progressively worsening body aches, head ache, nausea, and diarrhea. She has been fully vaccinated against covid-19. Her daughter had what she thinks was a stomach virus about 4 days ago. She denies any shortness of breath or chest pain. - Related Data Home Medications Medication Instructions Recorded Confirmed amoxicillin 500 mg capsule 500 mg PO cap 11/27/21 11/27/21 hydrocodone 5 mg-acetaminophen 325 1 tab PO tab 11/27/21 11/27/21 mg tablet Previous Rx's Medication Instructions Recorded Ibuprofen [Ibuprofen 800mg 800 mg PO Q8HP PRN #30 tab 12/07/21 Tablet] Ondansetron [Zofran 4mg ODT] 4 mg PO Q8HP PRN #20 tab 12/07/21 Allergies Allergy/AdvReac Type Severity Reaction Status Date / Time No Known Allergies Allergy Verified 11/27/21 09:18
[2021-12-07 12:25] VITALS: BP 110/74; PULSE 103; RESP 14; TEMP 37.3; O2SAT 98; BMI 37.0
[2021-12-07 12:27] LABS: UTC Influenza A Antigen Negative (Negative)
[2021-12-07 12:28] LABS: UTC Influenza B Antigen Negative (Negative)
[2021-12-07 14:05] LABS: Chloride 105 mmol/L (98-107)
[2021-12-07 14:06] LABS: Potassium 3.6 mmoL/L (3.5-5.1); Sodium 131 mmol/L (136-145)
[2021-12-07 14:08] LABS: Blood Urea Nitrogen 10 mg/dl (7-17); Creatinine Clearance Estimated 169 mL/min (50-200); Estimated Glomerular Filt Rate 92 ml/min (>60); GFR (African American) 112 ML/MIN (>60)
[2021-12-07 14:09] LABS: Anion Gap 8.6 mEq/L (5-15); Calcium 7.9 mg/dl (8.4-10.2); Carbon Dioxide 21 mmol/L (22.0-30.0); Glucose 102 mg/dl (74-100)
[2021-12-07 14:25] LABS: Basophils % 0.4 % (0.1-2.0); Eosinophils % 0.5 % (0.1-12.0); Hematocrit 42.1 % (37.0-47.0); Hemoglobin 13.5 g/dL (12.2-16.2); Lymphocytes # 0.6 K/mm3 (0.7-4.5); Lymphocytes % 9.9 % (10-50); Mean Corpuscular HGB Conc 32.1 g/dL (31.8-35.4); Mean Corpuscular Hemoglobin 28.8 pg (27.0-31.2); Mean Corpuscular Volume 89.7 fl (81-99); Mean Platelet Volume 8.1 fl (7.4-10.4); Monocytes # 0.3 K/mm3 (0.1-1.0); Monocytes % 5.3 % (1.7-9.3); Neutrophils # 5.3 K/mm3 (1.8-7.8); Neutrophils % 83.9 % (37.0-80.0); Platelet Count 332 K/mm3 (142-424); Red Cell Distribution Width 12.8 % (11.5-17.5); White Blood Count 6.3 K/mm3 (4.8-10.8)
[2021-12-07 15:17] VITALS: BP 110/74; PULSE 103; RESP 14; TEMP 37.3
== END 2021-12-07 15:18 | disposition home or self-care (01) ==
PROVIDERS: Emergency Provider Nurse Practitioner Family; PCP Emergency Medicine
DX: K52.9 Noninfective gastroenteritis and colitis, unspecified (principal); Z20.822 Contact with and (suspected) exposure to COVID-19
CPT/HCPCS: 80048; 85025; 87804; 96360; 96365; 96375; 99202; C9803; G0463; J2405; U0003; U0005

== ENCOUNTER 2022-03-31 18:22 | Emergency (ER) | payer OTHER, SELFPAY ==
[2022-03-31 19:10] VITALS: BP 105/79; PULSE 74; RESP 18; TEMP 36.9; O2SAT 99; BMI 35.6
--- NOTE | 2022-03-31 19:22 | HMH.EDUTC ---
[facility] Disposition Clinical Impression: Sinusitis Qualifiers: Sinusitis location: unspecified location Chronicity: unspecified Qualified Code(s): J32.9 - Chronic sinusitis, unspecified Disposition: Home, Self-Care Condition on Discharge: Good Instructions: Sinusitis, DI for Sinusitis Additional Instructions: *Monitor Temp, Over the counter Motrin or Tylenol as directed/as needed Tylenol every 4 hours and Motrin every 6 hours (as long as your family doctor has told you that you can take it) for fever or pain. and straight to ER if unable to lower temp less than 101.0 after medication given *Warm salt water gargles may help to soothe the throat *Throat Lozenges *Warm fluids like tea with honey may help to soothe the throat *Sleep elevated *Humidifier/Vaporizer Take medication as prescribed Your throat swab was sent for culture. Those results are typically sent to your primary care. Be sure to follow up in 2-3 days with your family doctor/primary care physician if no improvement so they can review those result and treat if necessary. If you don?t have a primary care doctor, I recommend you get one but in the mean time, you will have to return to a walk in clinic Follow up IMMEDIATELY for new or worsening symptoms or no Noticeable improvement over the next 48-72 hours. 911 for difficulty breathing or swallowing Prescriptions: Amoxicillin/Potassium Clav [Amox-Clav 875-125 mg Tablet] 1 tab PO BID #14 tab Transmission Status: Pending to [facility] predniSONE [Prednisone 20mg Tab] 20 mg PO BID 5 Days #10 tab Transmission Status: Pending to [facility] Referrals: Sha Villasenor MD [Primary Care Provider] - As needed Forms: Work/School Release Time of Disposition: 19:50 Medical Decision Making - Agustin Inquiry Pt receiving controlled substance: No Agustin was queried for this patient: No Vital Signs: 03/31/22 19:10 Temperature 98.4 F Temperature Source Oral Pulse Rate [Right Brachial] 74 Respiratory Rate 18 Blood Pressure [Right Arm] 105/79 L Blood Pressure Mean [Right Arm] 87 Blood Pressure Source [Right Arm] Automatic Cuff Blood Pressure Position [Right Arm] Sitting 02 Sat by Pulse Oximetry 99 Oxygen Delivery Method Room Air - Lab Data Lab results reviewed: Yes: I reviewed the patient's lab results. Lab Results 03/31/22 19:00: Group A Strep Rapid Negative 03/31/22 19:21: Influenza Type A Ag Negative, Influenza Type B Ag Negative Orders (Tests/Meds): ORDERS Category Date Time Status Strep Screen Confirmation Stat Micro 03/31/22 19:00 Received Medical Decision Narrative: Patient states that she has taken Augmentin and Predisone in the past without complications or reactions [facility] HPI - General Stated complaint: body pain,sore throat Time Seen by Provider: 03/31/22 19:22 Mode of Arrival: Ambulatory Source of Information: Patient Limitations: No Limitations Description of Symptoms (Recalled from Triage Doc. by RN): PATIENT C/O SORE THROAT, CONGESTION, BODY ACHES, CHILLS, AND FATIGUE SINCE YESTERDAY HEENT Symptoms (Recalled from RN notes): Yes Resp Symptoms (Recalled from RN notes): No Skin Symptoms (Recalled from RN notes): No MS Symptoms (Recalled from RN notes): No Functional Status (Recalled from RN notes): WNL - History of Present Illness Provider Complaint: Patient states that she has been having some sinus congestion and pressure on and off for over a week States that for the last couple of days she has been having pressure in her sinuses behind her eyes, sore throat, cough, body aches, chills and fatigue States that today she was feeling worse so she came in to get checked - Related Data Home Medications Medication Instructions Recorded Confirmed ascorbic acid (vitamin C) 500 mg 1,000 mg PO .COMPLEX cap 12/11/21 12/11/21 capsule multivitamin 1 tab PO DAILY 12/11/21 12/11/21 Previous Rx's Medication Instructions Recorded Ibuprofen [I
[2022-03-31 19:32] LABS: UTC Influenza A Antigen Negative (Negative); UTC Influenza B Antigen Negative (Negative)
[2022-03-31 19:40] LABS: Strep Scrn Group A (Rapid) Negative (Negative)
[2022-03-31 19:49] VITALS: BP 105/79; PULSE 74; RESP 18; TEMP 36.9; O2SAT 99
== END 2022-03-31 20:00 | disposition home or self-care (01) ==
PROVIDERS: Emergency Provider Nurse Practitioner; PCP Emergency Medicine
DX: J32.9 Chronic sinusitis, unspecified (principal)
CPT/HCPCS: 87430; 87804; 99212; G0463

== ENCOUNTER 2022-07-22 08:00 | Emergency (ER) | payer OTHER, SELFPAY ==
[2022-07-22 08:09] VITALS: BP 113/74; PULSE 75; RESP 17; TEMP 36.8; O2SAT 97; BMI 33.3
--- NOTE | 2022-07-22 08:26 | EXP.UTC ---
Discharge Plan Disposition Patient Disposition: Home, Self-Care Condition: Fair Prescriptions Prescriptions: New qfgjqjqghe-qmqkauafnxuzx-loma [Fioricet] 50-300-40 mg capsule 1 cap PO TID 3 Days Qty: 9 0RF No Action ascorbic acid (vitamin C) 500 mg capsule 1,000 mg PO .COMPLEX Rx Instructions: 1,000 mg PO bid; multivitamin Tablet 1 tab PO DAILY ibuprofen 800 MG tablet 800 mg PO Q8HP PRN (Reason: Moderate Pain) Qty: 30 0RF Referrals Follow up/Referrals: Sha Villasenor MD [Primary Care Provider] - See instructions Clinical Impressions Clinical Impression: Headache Instructions Patient Instructions: DI for Migraine Discharge ED Provider: Hugh Smith [facility] [place] HPI <Jason Mancia APRN - Last Filed: 07/23/22 21:42> General Chief complaint: Headache Stated complaint: severe pain in back of head Mode of Arrival: Ambulatory Source of Information: Patient Limitations: No Limitations Time Seen by Provider: 07/22/22 08:24 Description of Symptoms (Recalled from Triage Doc. by RN): Pt c/o CALDWELL extending into the neck since Wednesday HE Symptoms (Recalled from RN notes): Yes (CALDWELL) Resp Symptoms (Recalled from RN notes): No Skin Symptoms (Recalled from RN notes): No MS Symptoms (Recalled from RN notes): No Functional Status (Recalled from RN notes): n/a History of Present Illness Provider Complaint: She states that for the past 1 day she has had moderate to severe head ache. Her pain is located at the base of her skull. Related Data Home Medications Medication Instructions Recorded Confirmed ascorbic acid (vitamin C) 500 mg 1,000 mg PO .COMPLEX 12/11/21 05/11/22 capsule multivitamin 1 tab PO DAILY 12/11/21 05/11/22 Previous Rx's Medication Instructions Recorded ibuprofen 800 mg tablet 800 mg PO Q8HP PRN Moderate Pain 12/07/21 #30 tabs yfpjomhemo-dhqowfmcwuugp-ufdfelbs 1 cap PO TID 3 days #9 caps 07/22/22 50 mg-300 mg-40 mg capsule (Fioricet) Allergies Allergy/AdvReac Type Severity Reaction Status Date / Time No Known Allergies Allergy Verified 05/11/22 09:29 Worker's Comp Is this a Worker's Comp case?: No <Hugh Smith MD - Last Filed: 07/22/22 11:08> History of Present Illness Provider Complaint: She states that for the past 1 day she has had moderate to severe head ache. Her pain is located at the base of her skull. Patient states that she has had some mild congestion as well. Headache is dull in nature. Located in the back. Radiates up to the frontal region. She has taken some ubsc-hus-eirwtdt medications without any relief. She is not having any change in vision or focal weakness. No fevers or chills. No chest pain or shortness of breath. No abdominal pain or vomiting. [facility] <Jason Mancia APRN - Last Filed: 07/23/22 21:42> [facility] Social History Smoking Status: Never smoker second hand exposure: No alcohol intake: never substance use type: former substance user and crack/cocaine current occupational status: other Travel in the last 8 weeks: None household members: children housing: house <Jason Mancia APRN - Last Filed: 07/23/22 21:42> ROS Obtained: Yes All systems reviewed & no additional complaints except as documented Constitutional Constitutional: Reports system reviewed and no additional complaints, except as documented, Denies chills and Denies fever(s) Eyes Eyes: Denies eye discharge ENT Ears, Nose, Mouth, and Throat: Denies dysphagia, Denies sore throat and Denies throat swelling Cardiovascular Cardiovascular: Denies chest pain and Denies dyspnea Respiratory Respiratory: Denies chest congestion, Denies cough and Denies dyspnea Gastrointestinal Gastrointestingal: Denies abdominal pain, constipation, diarrhea, dysphagia, nausea or vomiting Musculoskeletal Musculoskeletal: Denies arthralgias Integumentary/Breasts Skin/Breast: Denies rash Neurologic Neurologic: D
[2022-07-22 08:54] LABS: UTC Strep Screen (Rapid) Negative (Negative)
--- NOTE | 2022-07-22 09:00 | PC.NURSE ---
Pt being sent to ED for further eval.
[2022-07-22 09:13] VITALS: BP 124/85; PULSE 60; RESP 18; TEMP 36.6; O2SAT 100; BMI 33.6
--- NOTE | 2022-07-22 09:17 | PC.NURSE ---
ED MD AT BEDSIDE
[2022-07-22 09:31] VITALS: BP 117/65
[2022-07-22 09:50] LABS: Coronavirus 19, PCR Not Detected (NotDetected); Influenza A, PCR Not Detected (NotDetected); Influenza B, PCR Not Detected (NotDetected)
[2022-07-22 10:00] VITALS: BP 114/68
--- NOTE | 2022-07-22 11:04 | PC.NURSE ---
ED MD AT BEDSIDE TO REVALUATE PT
[2022-07-22 11:14] VITALS: BP 110/59; PULSE 60; RESP 17; TEMP 36.7; O2SAT 98
== END 2022-07-22 11:15 | disposition home or self-care (01) ==
LOC: UTC 09:00 → ER 09:12
PROVIDERS: Nurse Practitioner Family; Emergency Provider Emergency Medicine; PCP Emergency Medicine
DX: R51.9 Headache, unspecified (principal)
CPT/HCPCS: 87880; 96372; 99283; C9803; U0003; U0005

== ENCOUNTER 2022-09-21 09:30 | Outpatient (RCR) | payer OTHER, SELFPAY ==
--- NOTE | 2022-08-17 09:46 | HMH.PTOPEV ---
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 Pt reports insidious onset, right sided LBP w/referred pain into right glut and right hip flxr area. 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 NO imaging to date. Chief Complaint Pain,Spasms,Stiff Symptom Type Ache,Sharp,Dull,Stabbing Symptoms Relieved By Rest/Positioning,Heat Symptoms Aggravated By Standing,Bending/Stooping, Physical Activity,Twisting, Lifting Prior Functional Limitations None Current Functional Limitations Lifting,Housework,Standing, Recreation Activity Symptom Description Constant but Variable Level of pain today (0-10) 7 Pain scale - at its best (0-10) 7 Pain scale - at its worst (0-10) 8 Lumbopelvic Eval Posture Thoracic Spine Posture Standing Position Neutral Lumbar Spine Posture Standing Position Neutral Assistive device Assistive Devices None / NA Gait Observation General Gait Pattern Observation Antalgic Gait Palapation tenderness right lumbar spinal tenderness Yes: 1/4 paraspinal tenderness Yes: 3/4 buttock tenderness Yes: 3/4 Lumbar/Sacral Palpation Findings Tenderness,Trigger Point Accessory Movement L-spine Vertebrae Accessory Movements Central [employer] [place] that Elicit Symptoms L4 right L5 right Range of Motion Lumbar Spine Active Flexion Range of 0-90 Motion (degrees) Lumbar Spine Active Extension Range of 0-15 Motion (degrees) Left Lumbar Spine Lateral Flexion Active 0-30 Range of Motion (degrees) Right Lumbar Spine Lateral Flexion 0-30 Active Range of Motion (degrees) Lumbar Spine ROM Limitations Soft Tissue Tightness,Pain Manual Muscle Test Right Knee Extension Strength Grade 5 Normal Knee Flexion Strength Grade 5 Normal Hip Flexion Strength Grade 4- Good- Hip Abduction Strength Grade 4- Good- Hip Adduction Strength Grade 4- Good- Hip External Rotation Strength Grade 4 Good Hip Internal Rotation S
== END 2022-09-21 09:35 | disposition home or self-care (01) ==
LOC: PT 09:30
PROVIDERS: PCP Emergency Medicine; Visit Provider Student in an Organized Health Care Education/Training Program
DX: M54.50 Low back pain, unspecified (principal)
CPT/HCPCS: 20561; 97010; 97014; 97035; 97110; 97140; 97163; G0283

== ENCOUNTER → 2022-12-21 23:33 | Outpatient (CLI) | payer OTHER, SELFPAY ==
[2022-12-21 17:15] LABS: Adenovirus,PCR Not Detected (NotDetected); Bordetella Pertussis Not Detected (NotDetected); Chlamydophila Pneumoniae, PCR Not Detected (NotDetected); Coronavirus 19, PCR Not Detected (NotDetected); Coronavirus 229E Not Detected (NotDetected); Coronavirus NL63 Not Detected (NotDetected); Coronavirus OC43 Not Detected (NotDetected); Coronovirus HKU1,PCR Not Detected (NotDetected); Human Metapneumovirus Not Detected (NotDetected); Influenza A, PCR Not Detected (NotDetected); Influenza AH1, 2009 Not Detected (NotDetected); Influenza AH1, PCR Not Detected (NotDetected); Influenza AH3,PCR Not Detected (NotDetected); Influenza B, PCR Not Detected (NotDetected); Mycoplasma Pneumoniae, PCR Not Detected (NotDetected); Parainfluenza 1, PCR Not Detected (NotDetected); Parainfluenza 2, PCR Not Detected (NotDetected); Parainfluenza 3, PCR Not Detected (NotDetected); Parainfluenza 4, PCR Not Detected (NotDetected); Respiratory Syncytial Virus Not Detected (NotDetected); Rhinovirus/Enterovirus Not Detected (NotDetected)
== END ==
PROVIDERS: PCP Nurse Practitioner Family; Visit Provider Nurse Practitioner Family
DX: B97.89 Other viral agents as the cause of diseases classified elsewhere (principal); J98.8 Other specified respiratory disorders; J02.9 Acute pharyngitis, unspecified
CPT/HCPCS: 87070; 87581; 87632; 87798; C9803; U0003; U0005

== ENCOUNTER 2023-02-06 08:17 | Emergency (ER) | payer OTHER, SELFPAY ==
[2023-02-06 08:40] VITALS: BP 110/78; PULSE 72; RESP 20; TEMP 37.2; O2SAT 98; BMI 34.9
--- NOTE | 2023-02-06 09:38 | EXP.UTC ---
Discharge Plan Disposition Patient Disposition: Home, Self-Care Condition: Good Prescriptions Prescriptions: New meclizine 25 mg tablet 25 mg PO TID Qty: 90 0RF fluticasone propionate [Flonase Allergy Relief] 50 mcg/actuation spray,suspension 1 spray intranasal Q12H Qty: 16 0RF Rx Instructions: administer into each nostril Referrals Follow up/Referrals: Sha Villasenor MD [Primary Care Provider] - See instructions Clinical Impressions Clinical Impression: Dizzinesses, Acute dysfunction of both eustachian tubes Discharge ED Provider: Rere Hobson [facility] [place] HPI General Stated complaint: dizzy, pain in Rt side of face, vomiting, nausea Mode of Arrival: Ambulatory Source of Information: Patient Limitations: No Limitations Time Seen by Provider: 02/06/23 09:38 Description of Symptoms (Recalled from Triage Doc. by RN): PATIENT C/O DIZZINESS/ROOM SPINNING, VOMITING, DIARRHEA, AND PAIN TO RIGHT SIDE OF FACE SINCE WEDNESDAY. SHE STATES SYMPTOMS STARTED WHILE SHE WAS RIDING IN THE BACK OF A CAR FOR [address] HOME OVER THE WEEKEND HEENT Symptoms (Recalled from RN notes): Yes Resp Symptoms (Recalled from RN notes): No Skin Symptoms (Recalled from RN notes): No MS Symptoms (Recalled from RN notes): No Functional Status (Recalled from RN notes): WNL Related Data Previous Rx's Medication Instructions Recorded fluticasone propionate 50 1 spray intranasal Q12H #16 grams 02/06/23 mcg/actuation nasal spray,suspension (Flonase Allergy Relief) meclizine 25 mg tablet 25 mg PO TID #90 tabs 02/06/23 Allergies Allergy/AdvReac Type Severity Reaction Status Date / Time No Known Allergies Allergy Verified 12/21/22 08:32 Worker's Comp Is this a Worker's Comp case?: No [facility] Disclaimer: The information contained in this section may have been updated after the patient was seen, as this information can be updated by other users. Medical History (Updated 02/06/23 @ 10:02 by Rere Hobson APRN) Acute bronchitis Advanced maternal age (AMA) in Annual physical exam Blighted ovum Cervical cerclage suture present Diarrhea Facial abscess Gastroenteritis Headache Influenza Low back pain Muscle spasm Other malaise Patient left without being seen Pharyngitis Physical exam, pre-employment labor in second trimester Sinusitis Viral illness Viral URI with cough Social History Smoking Status: Never smoker second hand exposure: No alcohol intake: never substance use type: former substance user and crack/cocaine current occupational status: other Travel in the last 8 weeks: None household members: children housing: house ROS Obtained: Yes All systems reviewed & no additional complaints except as documented Constitutional Constitutional: Reports system reviewed and no additional complaints, except as documented Eyes Eyes: Reports system reviewed and no additional complaints, except as documented ENT Ears, Nose, Mouth, and Throat: Reports system reviewed and no additional complaints, except as documented, Reports dizziness and Reports vertigo Cardiovascular Cardiovascular: Reports system reviewed and no additional complaints, except as documented Respiratory Respiratory: Reports system reviewed and no additional complaints, except as documented Gastrointestinal Gastrointestingal: Reports system reviewed and no additional complaints, except as documented, nausea and vomiting Genitourinary Female Genitourinary: Reports system reviewed and no additional complaints, except as documented Musculoskeletal Musculoskeletal: Reports system reviewed and no additional complaints, except as documented Integumentary/Breasts Skin/Breast: Reports system reviewed and no additional complaints, except as documented Neurologic Neurologic: Reports system reviewed and no additional complaints, except as documented,
[2023-02-06 10:05] VITALS: BP 110/78; PULSE 72; RESP 20; TEMP 37.2; O2SAT 98
[2023-02-06 10:06] VITALS: BP 107/73; BP 112/82; BP 116/74; PULSE 72; PULSE 73; PULSE 86
== END 2023-02-06 10:10 | disposition home or self-care (01) ==
PROVIDERS: Emergency Provider Nurse Practitioner Family; PCP Emergency Medicine
DX: H69.93 Unspecified Eustachian tube disorder, bilateral (principal); R42 Dizziness and giddiness
CPT/HCPCS: 99212; 99214; G0463

== ENCOUNTER 2023-03-30 07:59 | Emergency (ER) | payer OTHER, SELFPAY ==
[2023-03-30 08:05] VITALS: BP 108/62; PULSE 65; RESP 20; TEMP 37.1; O2SAT 97; BMI 34.2
--- NOTE | 2023-03-30 08:26 | EXP.UTC ---
Discharge Plan Disposition Patient Disposition: Home, Self-Care Condition: Good Prescriptions Prescriptions: New cefdinir 300 mg capsule 300 mg PO BID Qty: 20 0RF methylprednisolone [Medrol (Andrew)] 4 mg tablets,dose pack See Rx Instructions .Route .COMPLEX 6 Days Qty: 21 0RF Rx Instructions: taper pack; Referrals Follow up/Referrals: Sha Villasenor MD [Primary Care Provider] - See instructions Activity Restrictions/Add. Instructions Additional Instructions/Restrictions: Take medication as prescribed Follow up with Family Doctor or dentist if no improvement or any worsening of symptoms Return if needed Straight to ER if any life threatening symptoms Clinical Impressions Clinical Impression: Strep throat Stand Alone Forms Stand Alone Forms: Work/School Release Instructions Patient Instructions: Strep Throat, DI for Strep Throat, DI for Ear Pain-Adult, Cefdinir Discharge ED Provider: Jeanne Ponce [facility] [place] General Stated complaint: RT side facial pain, hurts to swallow/talk Mode of Arrival: Ambulatory Source of Information: Patient Limitations: No Limitations Time Seen by Provider: 03/30/23 08:10 Description of Symptoms (Recalled from Triage Doc. by RN): PATIENT C/O PAIN TO RIGHT SIDE OF FACE THAT STARTED YESTERDAY. HEENT Symptoms (Recalled from RN notes): Yes Resp Symptoms (Recalled from RN notes): No Skin Symptoms (Recalled from RN notes): No MS Symptoms (Recalled from RN notes): No Functional Status (Recalled from RN notes): WNL History of Present Illness Provider Complaint: Patient states that she has been having popping sensation in her ear and pain on and off and she started yesterday with pain in the right side of her face and ear and hurts when she swallows States that thinks her ear or tooth is bothering her States it was hurting last night and she took a Motrin for the pain and this morning she came in to get it checked Related Data Previous Rx's Medication Instructions Recorded cefdinir 300 mg capsule 300 mg PO BID #20 caps 03/30/23 methylprednisolone 4 mg tablets in See Rx Instructions .Route 03/30/23 a dose pack (Medrol (Andrew)) .COMPLEX 6 days #21 tabs Allergies Allergy/AdvReac Type Severity Reaction Status Date / Time No Known Allergies Allergy Verified 03/09/23 10:10 Worker's Comp Is this a Worker's Comp case?: No [facility] Disclaimer: The information contained in this section may have been updated after the patient was seen, as this information can be updated by other users. Medical History Acute bronchitis Advanced maternal age (AMA) in Annual physical exam Blighted ovum Cervical cerclage suture present Diarrhea Facial abscess Gastroenteritis Headache Influenza Low back pain Muscle spasm Other malaise Patient left without being seen Pharyngitis Physical exam, pre-employment labor in second trimester Sinusitis Viral illness Viral URI with cough Social History Smoking Status: Never smoker second hand exposure: No alcohol intake: never substance use type: former substance user and crack/cocaine current occupational status: other Travel in the last 8 weeks: None household members: children housing: house ROS Obtained: Yes All systems reviewed & no additional complaints except as documented and Yes Systems reviewed as appropriate & no additional complaints except as documented Constitutional Constitutional: Reports system reviewed and no additional complaints, except as documented, Reports as per HPI, Denies body ache, Denies chills, Denies fever(s) and Denies headache(s) Eyes Eyes: Reports system reviewed and no additional complaints, except as documented and Reports as per HPI ENT Ears, Nose, Mouth, and Throat: Reports system reviewed and no additional complaints, except as documente
[2023-03-30 08:36] LABS: UTC Strep Screen (Rapid) Positive (Negative)
[2023-03-30 08:39] VITALS: BP 108/62; PULSE 65; RESP 20; TEMP 37.1; O2SAT 97
== END 2023-03-30 08:43 | disposition home or self-care (01) ==
PROVIDERS: Emergency Provider Nurse Practitioner; PCP Emergency Medicine
DX: J02.0 Streptococcal pharyngitis (principal); H92.01 Otalgia, right ear
CPT/HCPCS: 87880; 99212; 99214; G0463

== ENCOUNTER 2023-06-24 16:00 | Emergency (ER) | payer OTHER, SELFPAY ==
[2023-06-24 16:10] VITALS: BP 118/87; PULSE 70; RESP 22; TEMP 37.1; O2SAT 100; BMI 33.3
--- NOTE | 2023-06-24 16:20 | EXP.UTC ---
Discharge Plan Disposition Patient Disposition: Home, Self-Care Condition: Good Prescriptions Prescriptions: New amoxicillin [amoxicillin] 875 mg tablet 875 mg PO Q12H Qty: 20 0RF benzonatate [benzonatate] 100 mg capsule 100 mg PO TIDP PRN (Reason: Cough) Qty: 30 0RF ondansetron 4 mg Tablet,Disintegrating 4 mg PO Q8H PRN (Reason: Nausea) Qty: 12 0RF Referrals Follow up/Referrals: Sha Villasenor MD [Primary Care Provider] - See instructions Activity Restrictions/Add. Instructions Additional Instructions/Restrictions: Drink plenty of fluids. Take tylenol or ibuprofen for pain or fever. Take the medications as directed. Follow up with your regular doctor. GO TO THE ER FOR ANY WORSENING SYMPTOMS Clinical Impressions Clinical Impression: Pharyngitis, Acute viral syndrome Stand Alone Forms Stand Alone Forms: Work/School Release Instructions Patient Instructions: Sore Throat, DI for Pharyngitis/Tonsillopharyngitis -- Adult, Coronavirus Disease 2019, Preventing the Spread of Coronavirus Discharge Instructions Discharge ED Provider: Jason Mancia [facility] General Stated complaint: sore throat, fever Time Seen by Provider: 06/24/23 16:20 History of Present Illness Provider Complaint: She states that she has had sore throat, fever, diarrhea, and malaise for the past 2 days. Related Data Previous Rx's Medication Instructions Recorded amoxicillin 875 mg tablet 875 mg PO Q12H #20 tabs 06/24/23 benzonatate 100 mg capsule 100 mg PO TIDP PRN Cough #30 caps 06/24/23 ondansetron 4 mg disintegrating 4 mg PO Q8H PRN Nausea #12 tabs 06/24/23 tablet Allergies Allergy/AdvReac Type Severity Reaction Status Date / Time No Known Allergies Allergy Verified 05/28/23 09:57 [facility] Disclaimer: The information contained in this section may have been updated after the patient was seen, as this information can be updated by other users. Medical History (Updated 06/24/23 @ 16:31 by Jason Mancia APRN) Acute bronchitis Advanced maternal age (AMA) in Annual physical exam Blighted ovum Cervical cerclage suture present Diarrhea Facial abscess Gastroenteritis Headache Influenza Low back pain Muscle spasm Other malaise Patient left without being seen Pharyngitis Physical exam, pre-employment labor in second trimester Sinusitis Viral illness Viral URI with cough Social History Smoking Status: Never smoker second hand exposure: No alcohol intake: never substance use type: former substance user and crack/cocaine current occupational status: other Travel in the last 8 weeks: None household members: children housing: house ROS Obtained: Yes All systems reviewed & no additional complaints except as documented Constitutional Constitutional: Reports chills and Reports fever(s) Eyes Eyes: Denies eye discharge ENT Ears, Nose, Mouth, and Throat: Reports as per HPI Cardiovascular Cardiovascular: Denies chest pain Respiratory Respiratory: Denies chest congestion and Reports cough Gastrointestinal Gastrointestingal: Reports nausea; Denies abdominal pain, constipation, cramping, diarrhea or vomiting Musculoskeletal Musculoskeletal: Denies arthralgias Integumentary/Breasts Skin/Breast: Denies rash Neurologic Neurologic: Denies paresthesias Physical Exam General General appearance: alert and in no apparent distress Head Head exam: atraumatic, normocephalic and normal inspection Eye Eye exam: Present normal appearance, PERRL and EOMI ENT ENT exam: Present mucous membranes moist and normal external ear exam Expanded ENT Exam TM/Canal exam: Bilateral TM: erythema and bulging Nose exam: Absent sinus tenderness Mouth exam: Present normal external inspection; Absent drooling Teeth exam: Present normal inspection Throat exam: Present tonsillar erythema, tonsillomegaly and tonsillar exu
[2023-06-24 16:31] LABS: UTC Strep Screen (Rapid) Negative (Negative)
[2023-06-24 16:32] VITALS: BP 118/87; PULSE 70; RESP 22; TEMP 37.1; O2SAT 100
== END 2023-06-24 16:37 | disposition home or self-care (01) ==
PROVIDERS: Emergency Provider Nurse Practitioner Family; PCP Emergency Medicine
DX: J02.9 Acute pharyngitis, unspecified (principal); R50.9 Fever, unspecified; B34.9 Viral infection, unspecified; R19.7 Diarrhea, unspecified; R53.81 Other malaise
CPT/HCPCS: 87880; 99212; 99214; G0463

== ENCOUNTER 2023-07-09 11:00 | Outpatient (RCR) | payer OTHER, SELFPAY ==
--- NOTE | 2023-06-07 16:06 | HMH.PTOPEV ---
PT Outpatient Evaluation Rehab PT Outpatient Evaluation Start: 06/07/23 15:13 Freq: Status: Active Protocol: Document 06/07/23 15:47 PHOMARK (Rec: 06/07/23 16:06 PHOMARK [id number]) E-signed By Rian Hernandez, PT Outpatient Therapy Subjective History Subjective History This is the initial PT eval for Brendon Hubbard, 42 yowf who presents with c/o pain in the R side of low back with intermittent numbness/tingling /pain into the posterior R LE x ~ 1 yr overall. She reports pain is worse with increased activity, especially standing or lifting. She reports steroid injections have helped in the past, but are no longer as helpful. She also reports mechanical traction reduces her symptoms for short periods of time. She reports no significant PMH. Chief Complaint Pain,Stiff Symptom Type Ache,Sharp,Numbness,Tingling Symptoms Relieved By Rest/Positioning,Heat Symptoms Aggravated By Standing,Physical Activity, Lifting Prior Functional Limitations None Current Functional Limitations Lifting,Housework,Sleeping, Standing,Recreation Activity, Walking Symptom Description Constant but Variable Level of pain today (0-10) 8 Pain scale - at its worst (0-10) 10 Lumbopelvic Eval Posture Lumbar Spine Posture Standing Position Increased Lordosis Palapation tenderness right lumbar spinal tenderness Yes: 2/4 Lumbar/Sacral Palpation Findings Tenderness Lumbar/Sacral Palpation Overall Comment R piriformis and SI 2/4 Accessory Movement L-spine Vertebrae Accessory Movements [employer] [place] that Elicit Symptoms L3 right L4 right L5 right S1 right Range of Motion Lumbar Spine Active Flexion Range of 0-65 Motion (degrees) Lumbar Spine Active Extension Range of 0-20 Motion (degrees) Left Lumbar Spine Lateral Flexion Active 0-20 Range of Motion (degrees) Right Lumbar Spine Lateral Flexion 0-20 Active Range of Motion (degrees) Manual Muscle Test Bilateral Knee Extension Strength Grade 5 Normal Knee Flexion Strength Grade 5 Normal Hip Flexion Strength Grade 5 Normal Hip Abduction Strength Grade 5 Normal Hip Adduction Strength Grade 5 Normal Extensor Hallucis Longus Strength Grade 5 Normal Ankle Dorsiflexion Strength Grade 5 Normal Gastronemius/Soleus Strength Grade 5 Normal Special Tests Hip Scouring (Quadrant) Test Negative Left,Negative Right Hip Jerry (NICKI) Test Negative Left,Negative Right Hip Bowstring (Cram) Test Negative Left,Negative Right Sciatic Nerve Tension Test Negative Left,Negative Right Unilateral Straight Leg Raise (Lasegue) Negative Left,Negative Right Test Lumbar Long [place] Distraction Test/Manual Positive Traction Oswestry Index Section 1 Pain Intensity The pain is moderate and does not vary much Section 2 Personal Care (Washing,Dresing) change my way of washing or dressing in order to avoid pain Section 3 Lifting lifting heavy weights off the floor, but I can manage light to medium Section 4 Walking I cannot walk more than 1/4 mile without increasing pain Section 5 Sitting Pain prevents me from sitting for more than one hour Section 6 Standing I cannot stand more than 1/2 hour without increasing pain Section 7 Sleeping I get no pain in bed Section 8 Social Life Pain has restricted my social life and I do not go out often Section 9 Traveling I get some pain when traveling , but none of my usual forms of travel m Section 10 Changing Degreee of Pain My pain seems to be getting better, but improvement is slow Score and Risk Level Oswestry Sc 22 Oswestry Risk Level Moderate Disability Outpatient Therapy Assessment Impairments Problems/Impairmments Palpation Tenderness,Impaired Range of Motion,Impaired Walking,Impaired Standing, Impaired Lifting,Impaired Household Care,Impaired Recreational Activities, Subjective C/O Pain,Impaired Self Care/Self Management Prognosis Rehab Potential Good Clinical Impression Consistent with Diagnosis Yes Short Term Goals Number of Weeks 2 Decreased Palpation Tenderness Yes: R side low back 1/4 Increase Ability to Stand Yes: > 30 min without pain Decrease Subjective C/O Pain Yes: 5/10 low back Patient to be Ind w/ HEP Yes Route Returner Goals Number of Weeks 4 Decreased Palpation Tenderness Yes: R side low back 0/4 Increase Ability to Walk Yes: > 30 min without pain Improve Ability For Household Care Yes: without pain Decrease Subjective C/O Pain Yes: 3/10 at worst Improve Self Care/Self Management Yes: Oswestry 14 or less Patient to be Ind w/ Advanced HEP Yes Outpatient Therapy Plan of Care Treatment Plan May Include Therapeutic Exercise Including Home Yes Exercise Program Manual Therapy Techniques Yes Neuromuscular Re-education Yes Therapeutic Activities to Return to Yes Previous Functional/Work Level ADL/Self Care Education Yes Mechanical Traction Yes Dry Needling Yes Thermal Modalities Yes Electrical Stimulation Yes Ultrasound/Phonophoresis Yes Iontophoresis Yes Orthotics/Bracing/Splinting Yes Massage Yes Eval/Re-Eval Yes Frequency Times per week 2 Duration Number of Weeks 4 Addendums This patient is a candidate for social No or vocational rehab? Patient/Guardian verbally acknowledges Yes understanding of treatment program and consents to further treatment? Patient/Guardian verbally acknowledges Yes understanding of diagnosis, prognosis and goals for treatment? G -code Required No Eval Complexity PT Charges 52872 - High Complexity Shoulder/Elbow Eval Shoulder Objective Measurements Elbow Objective Measurements PHYSICIAN CERTIFICATION: I certify the specified therapy services for Brendon Hubbard are required, authorized, and reviewed every 30 days.
--- NOTE | 2023-07-06 16:55 | HMH.RHREAS ---
Rehab Reassessment Rehab OP Re-assessment Start: 06/07/23 15:13 Freq: Status: Active Protocol: Document 07/06/23 16:49 PHOKatelynCOLE (Rec: 07/06/23 16:55 PHORCOLE [id number]) E-signed By Rian Hernandez, PT Oswestry Index Section 1 Pain Intensity The pain is moderate and does not vary much Section 2 Personal Care (Washing,Dresing) change my way of washing or dressing in order to avoid pain Section 3 Lifting I can lift heavy weights, but it gives me extra pain Section 4 Walking I have no pain when walking Section 5 Sitting Pain prevents me from sitting for more than 1/2 hour Section 6 Standing I can stand as long as I want without pain Section 7 Sleeping I get pain in bed, but it does not prevent me from sleeping well Section 8 Social Life Pain has no significant effect on my social life apart from limiting Section 9 Traveling I get some pain when traveling , but none of my usual forms of travel m Section 10 Changing Degreee of Pain My pain seems to be getting better, but improvement is slow Score and Risk Level Oswestry Sc 13 Oswestry Risk Level Mild Disability Rehab Re-assessment Subjective Subjective Pt reports 8/10 pain in the R side of low back only at this time. No radiating pain in the R LE. Objective Objective Notes Lumbar AROM: Remains WFL throughout. Pain: 8/10 R side lumbar spine . TTP: 1/4 R lumbar paraspinals. Oswestry: 13 Assessment Progress Assessment Progressing as Expected Assessment Notes Pt has shown significant improvement in overall symptoms, with reduction of R LE radiculopathy. However, her LBP continues to limit jazmyne functional abilities with Oswestry LBP disability score as ntoed above. She continues to need skilled intervention to return to prior level of function. Patient goals met ST,2,4 LT Goals Not Met ST LT,2,3,4,6 Plan Plan Continue per initial POC. Frequency of Therapy 2 x/wk Duration of therapy 4 wks Time and Billing Re-Eval Time 15 Re-Eval Billing Units 1 PHYSICIAN CERTIFICATION: I certify the specified therapy services for Shellena N Hubbard are required, authorized, and reviewed every 30 days.
== END 2023-07-09 12:00 | disposition home or self-care (01) ==
LOC: PT 11:00
PROVIDERS: PCP Emergency Medicine; Visit Provider Student in an Organized Health Care Education/Training Program
DX: M54.50 Low back pain, unspecified (principal); M54.31 Sciatica, right side
CPT/HCPCS: 97010; 97014; 97110; 97163; 97164; G0283

== ENCOUNTER → 2023-07-21 16:28 | Outpatient (CLI) | payer OTHER, SELFPAY ==
--- NOTE | 2023-07-21 16:28 | MM_ITS ---
PROCEDURE INFORMATION: Exam: MG Bilateral Screening 3D Mammography Exam date and time: 07/21/2023 4:17 PM Age: 42 years old Clinical indication: Screening mammogram TECHNIQUE: Imaging protocol: Bilateral Screening tomosynthesis and 2D mammography including computer-aided detection (CAD) when performed. COMPARISON: MG MM DIG SCREENING MAMM BI W/CAD 01/02/2021 1:28 PM FINDINGS: MAMMOGRAPHY: Breast composition: The breast is heterogeneously dense, which may obscure small masses. Mass: Stable bilateral intramammary lymph nodes. No new or suspicious mass has developed. Architectural distortion: No new or suspicious architectural distortion. Calcifications: No new or suspicious calcifications are present Asymmetric density: No new or suspicious asymmetric density is present Skin thickening: None. Axillary adenopathy: None. IMPRESSION: No mammographic evidence of malignancy. Recommend annual screening mammography unless otherwise clinically indicated. ASSESSMENT: BI-RADS category 2: Benign
== END ==
PROVIDERS: PCP Emergency Medicine; Visit Provider Nurse Practitioner Obstetrics & Gynecology
DX: Z12.31 Encounter for screening mammogram for malignant neoplasm of breast (principal)
CPT/HCPCS: 77063; 77067

== ENCOUNTER → 2023-08-07 08:18 | Outpatient (CLI) | payer OTHER, SELFPAY ==
[2023-08-07 09:19] LABS: Alanine Aminotransferase 14 U/L (12-78); Albumin/Globulin Ratio 1.3 (1.1-1.8); Alkaline Phosphatase 78 U/L (38-126); Anion Gap 12.2 mEq/L (5-15); Aspartate Amino Transferase 27 U/L (14-36); Bilirubin,Total 0.7 mg/dl (0.2-1.3); Blood Urea Nitrogen 13 mg/dl (7-17); Calcium 9.2 mg/dl (8.4-10.2); Carbon Dioxide 27 mmol/L (22.0-30.0); Chloride 105 mmol/L (98-107); Chol/HDL Ratio 3.6 (1-3.5); Cholesterol 189 mg/dl (140-200); Estimated Glomerular Filt Rate 135 ml/min (>60); GFR (African American) 164 ML/MIN (>60); Glucose 97 mg/dl (74-100); HDL Cholesterol 53 mg/dl (40-60); Potassium 4.2 mmoL/L (3.5-5.1); Sodium 140 mmol/L (136-145); Triglycerides 37 mg/dl (30-150); VLDL Cholesterol 7 mg/dL (0-40)
[2023-08-07 09:31] LABS: Direct LDL Cholesterol 102.37 mg/dL (100-129)
[2023-08-07 09:35] LABS: Free Thyroxine Index 2.4 ug/dL (5.93-13.13); T4 (Thyroxine) 7.6 ug/dl (5.53-11.0); Triiodothryronine (T3) Uptake 32 % (23.5-40.5)
[2023-08-07 09:49] LABS: Thyroid Stimulating Hormone 0.46 uIU/mL (0.465-4.68)
[2023-08-07 10:18] LABS: Basophils % 0.7 % (0.1-2.0); Eosinophils # 0.2 K/mm3 (0.0-0.4); Eosinophils % 2.8 % (0.1-12.0); Hematocrit 36.6 % (37.0-47.0); Hemoglobin 12.3 g/dL (12.2-16.2); Lymphocytes # 1.4 K/mm3 (0.7-4.5); Lymphocytes % 25.1 % (10-50); Mean Corpuscular HGB Conc 33.6 g/dL (31.8-35.4); Mean Corpuscular Hemoglobin 30.1 pg (27.0-31.2); Mean Corpuscular Volume 89.4 fl (81-99); Mean Platelet Volume 8.3 fl (7.4-10.4); Monocytes # 0.3 K/mm3 (0.1-1.0); Monocytes % 5.1 % (1.7-9.3); Neutrophils # 3.6 K/mm3 (1.8-7.8); Neutrophils % 66.3 % (37.0-80.0); Platelet Count 290 K/mm3 (142-424); Red Blood Count 4.09 M/mm3 (4.20-5.40); Red Cell Distribution Width 12.9 % (11.5-17.5); White Blood Count 5.4 K/mm3 (4.8-10.8)
== END ==
PROVIDERS: PCP Emergency Medicine; Visit Provider Nurse Practitioner Obstetrics & Gynecology
DX: Z01.419 Encounter for gynecological examination (general) (routine) without abnormal findings (principal)
CPT/HCPCS: 36415; 80053; 80061; 84436; 84443; 84479; 85025

== ENCOUNTER 2023-09-11 09:42 | Emergency (ER) | payer OTHER, SELFPAY ==
--- NOTE | 2023-09-11 09:56 | EXP.UTC ---
Discharge Plan Disposition Patient Disposition: Home, Self-Care Condition: Good Prescriptions Prescriptions: New prednisone 10 mg tablet 10 mg PO BID 5 Days Qty: 10 0RF azithromycin [Zithromax] 250 mg tablet 250 mg PO UD DOSE PK Qty: 6 0RF Rx Instructions: Take two (2) tablets today, then one (1) tablet days #2 thru #5 benzonatate [benzonatate] 100 mg capsule 100 mg PO TIDP PRN (Reason: Cough) Qty: 30 0RF Referrals Follow up/Referrals: Sha Villasenor MD [Primary Care Provider] - See instructions Activity Restrictions/Add. Instructions Additional Instructions/Restrictions: Drink plenty of fluids. Take tylenol or ibuprofen for pain or fever. Take the medications as directed. Follow up with your regular doctor. GO TO THE ER FOR ANY WORSENING SYMPTOMS Clinical Impressions Clinical Impression: Acute viral syndrome, Sinusitis Stand Alone Forms Stand Alone Forms: Work/School Release Instructions Patient Instructions: DI for Sinusitis, DI for Viral Syndrome Discharge ED Provider: Jason Mancia [facility] General Stated complaint: body aches, runny nose, congestion Time Seen by Provider: 09/11/23 09:56 History of Present Illness Provider Complaint: She states that for the past 2 days she has had body aches, chills, chest congestion, and low grade fever. Related Data Previous Rx's Medication Instructions Recorded azithromycin 250 mg tablet 250 mg PO UD DOSE PK #6 tabs 09/11/23 (Zithromax) benzonatate 100 mg capsule 100 mg PO TIDP PRN Cough #30 caps 09/11/23 prednisone 10 mg tablet 10 mg PO BID 5 days #10 tabs 09/11/23 Allergies Allergy/AdvReac Type Severity Reaction Status Date / Time house dust Allergy Verified 07/21/23 15:54 [facility] Disclaimer: The information contained in this section may have been updated after the patient was seen, as this information can be updated by other users. Medical History (Updated 09/11/23 @ 10:42 by Jason Mancia APRN) Acute bronchitis Advanced maternal age (AMA) in Annual physical exam Blighted ovum Cervical cerclage suture present Diarrhea Facial abscess Gastroenteritis Headache Influenza Low back pain Muscle spasm Other malaise Patient left without being seen Pharyngitis Physical exam, pre-employment labor in second trimester Sinusitis Viral illness Viral URI with cough Surgical History (Updated 07/21/23 @ 15:55 by ROSEANNE Roman) History of tubal ligation Family History (Updated 07/21/23 @ 15:55 by ROSEANNE Roman) Other Diabetes Social History Smoking Status: Never smoker second hand exposure: No alcohol intake: never substance use type: former substance user and crack/cocaine current occupational status: other Travel in the last 8 weeks: None household members: children housing: house ROS Obtained: Yes All systems reviewed & no additional complaints except as documented Constitutional Constitutional: Reports chills and Reports fever(s) Eyes Eyes: Denies eye discharge ENT Ears, Nose, Mouth, and Throat: Reports as per HPI Cardiovascular Cardiovascular: Denies chest pain Respiratory Respiratory: Denies chest congestion and Reports cough Gastrointestinal Gastrointestingal: Reports nausea; Denies abdominal pain, constipation, cramping, diarrhea or vomiting Musculoskeletal Musculoskeletal: Denies arthralgias Integumentary/Breasts Skin/Breast: Denies rash Neurologic Neurologic: Denies paresthesias Physical Exam General General appearance: alert and in no apparent distress Head Head exam: atraumatic, normocephalic and normal inspection Eye Eye exam: Present normal appearance, PERRL and EOMI ENT ENT exam: Present normal exam, normal oropharynx, mucous membranes moist, TM's normal bilaterally and normal external ear exam Neck Neck exam: Present normal inspection, full ROM and t
[2023-09-11 10:00] VITALS: BP 137/82; PULSE 83; RESP 22; TEMP 37.5; O2SAT 96; BMI 34.1
[2023-09-11 10:26] VITALS: BP 137/82; PULSE 83; RESP 22; TEMP 37.5; O2SAT 96
[2023-09-11 10:47] LABS: UTC Influenza A Antigen Negative (Negative); UTC Influenza B Antigen Negative (Negative)
== END 2023-09-11 10:49 | disposition home or self-care (01) ==
PROVIDERS: Emergency Provider Nurse Practitioner Family; PCP Emergency Medicine
DX: J01.90 Acute sinusitis, unspecified (principal); R09.81 Nasal congestion; R50.9 Fever, unspecified; B34.9 Viral infection, unspecified
CPT/HCPCS: 87635; 87804; 99212; 99214; G0463

== ENCOUNTER 2023-10-27 09:41 | Outpatient (CLI) | payer OTHER, SELFPAY ==
--- NOTE | 2023-10-27 09:51 | XR_ITS ---
FINAL REPORT CLINICAL HISTORY: low back pain COMPARISON: None FINDINGS: No fracture is identified. Mild degenerative changes present in the lumbar spine. Alignment is normal. There is a linear 49 mm in craniocaudal length calcification anterior to the L3 vertebral body, that is of uncertain etiology but may represent an unusual vascular calcification. IMPRESSION: Mild degenerative change lumbar spine. Linear 49 mm in length calcification, anterior to the L3 vertebral body, may represent an unusual vascular calcification. CT would be helpful for further evaluation as clinically indicated. Reviewed, Interpreted and Dictated by Adrián Crason III, MD Transcribed by Inocencia Mobley Authenticated and . [facility]
== END 2023-10-27 23:59 ==
LOC: RAD 09:43
PROVIDERS: PCP Internal Medicine; Visit Provider Family Medicine
DX: G57.01 Lesion of sciatic nerve, right lower limb (principal); M54.50 Low back pain, unspecified
CPT/HCPCS: 72100

== ENCOUNTER 2024-02-18 16:00 | Outpatient (RCR) | payer OTHER, SELFPAY ==
--- NOTE | 2024-02-08 15:19 | HMH.PTOPEV ---
PT Outpatient Evaluation Rehab PT Outpatient Evaluation Start: 02/08/24 13:45 Freq: Status: Active Protocol: Document 02/08/24 14:56 FIONA (Rec: 02/08/24 15:18 PHOMARK [id number]) E-signed By Rian Hernandez, PT Outpatient Therapy Subjective History Subjective History This is the initial eval for Brendon Hubbard, 43 yof, who presents with mid-back pain on the right side that began approximately 4 weeks ago after lifting weights. She reports that it felt almost like she had pulled a muscle. She also reports that she has a history of chronic low back pain, but this feels much different than her episodes with that. She reports that at the moment, she does not have much pain but a lot of stiffness. She also reports that the pain sometimes goes up into her neck on the right side. She reports when it is painful, it reaches a 5/10. Heat and rest tend to be the only things that relieve it at the moment. New diagnosis of cancer in past 12 No months? Chief Complaint Pain,Stiff Symptom Type Ache Symptoms Relieved By Rest/Positioning,Heat,Ice Symptoms Aggravated By Supine,Sitting,Physical Activity,Twisting Prior Functional Limitations None Current Functional Limitations Lifting,Sleeping,Standing, Sitting,Squatting,Recreation Activity,Bending/Stooping Symptom Description Intermittent Level of pain today (0-10) 0 Pain scale - at its best (0-10) 0 Pain scale - at its worst (0-10) 5 Cervical Eval Palpation Cervical Muscles R Cervical Paraspinal,R Thoracic Paraspinals Cervical/Thoracic Palpation Findings Tenderness Flexibility Deficits Upper Trapezius Muscle Length (R) Moderate Tightness Pectoralis Minor Muscle Length (R) Moderate Tightness,(L) Moderate Tightness Passive Joint Mobility Cervical PIVM Dec: R C4/5 R C5/6 R C6/7 R C7/T1 WNL: R OA L OA R AA L AA R C2/3 L C2/3 R C3/4 L C3/4 L C4/5 L C5/6 L C6/7 L C7/T1 AROM Cervical Spine Extension Active Range of 25 Motion (degrees) Cervical Spine Flexion Active Range of 32 Motion (degrees) Cervical Spine Right Lateral Flexion 35 Active Range of Motion (degrees) Cervical Spine Left Lateral Flexion 25 Active Range of Motion (degrees) MMT Bilateral Deltoid (C5) 4- Good- Lumbopelvic Eval Posture Thoracic Spine Posture Standing Position Increased Kyphosis Palapation tenderness right thoracic spinal tenderness Yes: TTP 2/4 To right Thoracic Paraspinals T4-T9 paraspinal tenderness Yes: 2/4 to right T-Spine T4- T9 Accessory Movement T-spine Vertebrae Accessory Movements Central P/A [place],Right P/A that Elicit Symptoms [place] Oswestry Index Section 1 Pain Intensity The pain comes and goes and is moderate Section 2 Personal Care (Washing,Dresing) increase the pain and I find it necessary to change my way of doing it Section 3 Lifting I can lift heavy weights, but it gives me extra pain Section 4 Walking I have no pain when walking Section 5 Sitting Pain prevents me from sitting for more than 10 minutes Section 6 Standing I can stand as long as I want without pain Section 7 Sleeping I get pain in bed, but it does not prevent me from sleeping well Section 8 Social Life Pain has restricted my social life and I do not go out often Section 9 Traveling I get extra pain while traveling, but it does not compel me to seek al Section 10 Changing Degreee of Pain My pain fluctuates, but overall is definitely getting better Score and Risk Level Oswestry Sc 17 Oswestry Risk Level Moderate Disability Miscellaneous Dx PT Eval Objective Objective MMT: Rhomboids: 4-/5 R and 4/5 L Lower Trapezius: 4-/5 B Thoracic Spine Rotation: 50% pain with overpressure Outpatient Therapy Assessment Impairments Problems/Impairmments Palpation Tenderness,Impaired Range of Motion,Impaired Strength,Impaired Sitting, Impaired Household Care, Subjective C/O Pain Prognosis Rehab Potential Good Comment Patient presents for IE and demonstrates signs and symptoms consistent with thoracic spine mobility deficits along with cervical spine mobility deficits, particulary affecting the right side. Clinical Impression Consistent with Diagnosis Yes Short Term Goals Number of Weeks 4 Decreased Palpation Tenderness Yes: 1/4 to right T-Spine Increase Range of Motion Yes: Cervical Motion WNL Increase Strength Yes: 4/5 to scapular stabilizers B Increase Ability to Sit Yes: 20 minutes Improve Oswestry Score Yes: by 8 points Decrease Subjective C/O Pain Yes: 2/10 at worst Patient to be Ind w/ HEP Yes Bridge Attacher Goals Number of Weeks 8 Decreased Palpation Tenderness Yes: 0/4 to right thoracic spine Increase Range of Motion Yes: Thoracic motion WNL Increase Ability to Sit Yes: 1 hour Improve Oswestry Score Yes: by 15 Decrease Subjective C/O Pain Yes: 0/10 Patient to be Ind w/ Advanced HEP Yes Outpatient Therapy Plan of Care Treatment Plan May Include Therapeutic Exercise Including Home Yes Exercise Program Manual Therapy Techniques Yes Neuromuscular Re-education Yes Therapeutic Activities to Return to Yes Previous Functional/Work Level Gait Training Yes ADL/Self Care Education Yes Mechanical Traction Yes Dry Needling Yes Thermal Modalities Yes Electrical Stimulation Yes Ultrasound/Phonophoresis Yes Iontophoresis Yes Orthotics/Bracing/Splinting Yes Vasopneumatic Compression Pump Yes Massage Yes Manual Lymphatic Drainage Yes Eval/Re-Eval Yes Frequency Times per week 2/week Duration Number of Weeks 8 weeks Addendums This patient is a candidate for social No or vocational rehab? Patient/Guardian verbally acknowledges Yes understanding of treatment program and consents to further treatment? Patient/Guardian verbally acknowledges Yes understanding of diagnosis, prognosis and goals for treatment? Eval Complexity PT Charges 73906 - Moderate Complexity Shoulder/Elbow Eval Shoulder Objective Measurements Elbow Objective Measurements PHYSICIAN CERTIFICATION: I certify the specified therapy services for Brendon Hubbard are required, authorized, and reviewed every 30 days.
== END 2024-02-18 16:05 | disposition home or self-care (01) ==
LOC: PT 16:00
PROVIDERS: Visit Provider Student in an Organized Health Care Education/Training Program
DX: G57.01 Lesion of sciatic nerve, right lower limb (principal); M54.41 Lumbago with sciatica, right side; I99.8 Other disorder of circulatory system
CPT/HCPCS: 97010; 97014; 97110; 97140; 97163; 97530; G0283

== ENCOUNTER 2024-05-04 14:50 | Outpatient (CLI) | payer OTHER, SELFPAY ==
[2024-05-04 18:05] LABS: Basophils # 0.1 K/mm3 (0-0.2); Basophils % 1.1 % (0.1-2.0); Eosinophils # 0.1 K/mm3 (0.0-0.4); Hematocrit 39.2 % (37.0-47.0); Hemoglobin 12.5 g/dL (12.2-16.2); Lymphocytes # 1.9 K/mm3 (0.7-4.5); Lymphocytes % 33.7 % (10-50); Mean Corpuscular HGB Conc 31.9 g/dL (31.8-35.4); Mean Corpuscular Hemoglobin 29.5 pg (27.0-31.2); Mean Corpuscular Volume 92.5 fl (81-99); Mean Platelet Volume 9.7 fl (7.4-10.4); Monocytes # 0.3 K/mm3 (0.1-1.0); Monocytes % 5.3 % (1.7-9.3); Neutrophils # 3.3 K/mm3 (1.8-7.8); Neutrophils % 57.8 % (37.0-80.0); Platelet Count 357 K/mm3 (142-424); Red Blood Count 4.23 M/mm3 (4.20-5.40); Red Cell Distribution Width 13.3 % (11.5-17.5); White Blood Count 5.7 K/mm3 (4.8-10.8)
[2024-05-04 18:34] LABS: Alanine Aminotransferase 12 U/L (12-78); Albumin Level 4.5 g/dl (3.5-5.0); Albumin/Globulin Ratio 1.4 (1.1-1.8); Alkaline Phosphatase 101 U/L (38-126); Anion Gap 11.6 mEq/L (5-15); Aspartate Amino Transferase 23 U/L (14-36); Bilirubin,Total 0.6 mg/dl (0.2-1.3); Blood Urea Nitrogen 14 mg/dl (7-17); Calcium 9.7 mg/dl (8.4-10.2); Carbon Dioxide 24 mmol/L (22.0-30.0); Chloride 107 mmol/L (98-107); Chol/HDL Ratio 3.3 (1-3.5); Cholesterol 202 mg/dl (140-200); Estimated Glomerular Filt Rate 91 ml/min (>60); GFR (African American) 111 ML/MIN (>60); Globulin 3.3 g/dL (1.3-3.2); Glucose 91 mg/dl (74-100); HDL Cholesterol 62 mg/dl (40-60); Potassium 4.6 mmoL/L (3.5-5.1); Sodium 138 mmol/L (136-145); Total Protein,Serum 7.8 g/dl (6.3-8.2); Triglycerides 103 mg/dl (30-150); VLDL Cholesterol 21 mg/dL (0-40)
[2024-05-04 18:44] LABS: Hemoglobin A1C 4.7 % (4.0-6.0)
[2024-05-04 18:45] LABS: Direct LDL Cholesterol 103.97 mg/dL (100-129)
[2024-05-04 18:53] LABS: 25-OH Vitamin D, Total 26.4 ng/mL (30-100)
[2024-05-04 18:59] LABS: Free Thyroxine Index 2.4 ug/dL (5.93-13.13); T4 (Thyroxine) 7.8 ug/dl (5.53-11.0); Triiodothryronine (T3) Uptake 31 % (23.5-40.5)
[2024-05-04 19:12] LABS: Thyroid Stimulating Hormone 0.32 uIU/mL (0.465-4.68)
[2024-05-06 08:15] LABS: HCV Ab Non Reactive (Non Reactive); Hep A Ab, Total Negative (Negative); Hep B Core Ab, Total Positive (Negative); Hep B Surface Ab, Qual Reactive (.)
[2024-05-06 13:47] LABS: HIV (1&2) Antibody Rapid NON REACTIVE
== END 2024-05-04 23:59 | disposition home or self-care (01) ==
LOC: LAB.DROPOF 05-05 09:55
PROVIDERS: Visit Provider Family Medicine
DX: Z00.00 Encounter for general adult medical examination without abnormal findings (principal); R79.89 Other specified abnormal findings of blood chemistry; F41.9 Anxiety disorder, unspecified; Z11.4 Encounter for screening for human immunodeficiency virus [HIV]; Z11.59 Encounter for screening for other viral diseases
CPT/HCPCS: 86803; 86703; 80050; 80053; 80061; 82306; 83036; 84436; 84443; 84479; 85025; 86704; 86706; 86708

== ENCOUNTER 2024-08-28 12:34 | Outpatient (CLI) | payer OTHER, SELFPAY ==
--- NOTE | 2024-08-28 12:34 | MR_ITS ---
PROCEDURE INFORMATION: Exam: MR Lumbar Spine Without and With Contrast Exam date and time: 08/28/2024 1:00 PM Age: 43 years old Clinical indication: Low back pain; Additional info: Abnormal XR, low back pain, radiculopathy. Low back pain x3 months. Worse on left side TECHNIQUE: Imaging protocol: Magnetic resonance imaging of the lumbar spine without and with contrast. Contrast material: PROHANCE; Contrast volume: 19 ml; Contrast route: IV; COMPARISON: CR XR LUMBAR SPINE 2-3V 10/27/2023 9:57 AM FINDINGS: Bones/joints: Vertebral body heights are maintained. No evidence of bone marrow edema. No spondylolisthesis. No abnormal contrast enhancement of the vertebral bodies or discs. No evidence of epidural lesions or collections. Vertical linear calcification anterior to the L3 vertebral body noted on lumbar spine radiograph October 27, 2023 is not detected by MRI and could represent a vascular calcification; this finding would be better characterized with CT imaging. Spinal cord: Visualized cord, conus medullaris and cauda equina are unremarkable without compression. No abnormal contrast enhancement of the conus. L1-L2: No significant disc bulge or disc herniation. The central canal and foramina are patent. L2-L3: 10 mm (transverse) x 3 mm (anterior-posterior) focal right foraminal disc herniation protrusion. Subtle right foramen narrowing. No central canal or left foraminal stenosis. L3-L4: 1.5 mm disc bulge. Facet hypertrophy and ligamentum flavum thickening. Mild central canal stenosis. Mild bilateral foraminal stenosis L4-L5: Subtle 1 mm disc bulge. 9 mm (transverse) x 3 mm (anterior-posterior) focal right foraminal disc herniation protrusion. No central canal stenosis. Mild bilateral foraminal stenosis. Mild facet hypertrophy. L5-S1: 2 mm disc bulge. No central canal stenosis. Moderate left foramen stenosis. Mild right foramen stenosis. Mild facet hypertrophy. Soft tissues: Unremarkable. IMPRESSION: 1. No MRI evidence of an acute osseous abnormality of the lumbar spine. 2. Multilevel degenerative change of the lumbar spine with mild central canal stenosis at L3-L4. 3. No evidence of osteomyelitis discitis or lumbar spine lesions.
[2024-08-28] MEDS: SODIUM CHLORIDE 0.9% 10ML SYR (RAD ONLY) 10 ML IV (13:39)
[2024-08-28] MEDS: GADOTERIDOL INJ 20ML SYRINGE 19 ML IV (13:39)
== END 2024-08-28 23:59 | disposition home or self-care (01) ==
LOC: RAD 12:34
PROVIDERS: PCP Student in an Organized Health Care Education/Training Program; Visit Provider Student in an Organized Health Care Education/Training Program
DX: R93.7 Abnormal findings on diagnostic imaging of other parts of musculoskeletal system (principal); G89.29 Other chronic pain; M54.16 Radiculopathy, lumbar region; I99.8 Other disorder of circulatory system; M54.41 Lumbago with sciatica, right side
CPT/HCPCS: 72158; A9576

== ENCOUNTER 2025-01-03 10:58 | Outpatient (CLI) | payer OTHER, SELFPAY ==
[2025-01-03 12:38] LABS: HIV Combo NEGATIVE (Negative)
[2025-01-03 12:45] LABS: Hepatitis C Ab Qual. W/ RFX NEGATIVE (Negative)
[2025-01-04 08:48] LABS: HBsAg Screen Negative (Negative); HCV Ab Non Reactive (Non Reactive); Hep A Ab, IGM Negative (Negative); Hep B Core Ab, IgM Negative (Negative)
[2025-01-06 12:40] LABS: RPR W/RFX Titers Nonreactive (Nonreactive)
[2025-01-06 14:10] LABS: HSV-1 DNA Negative (Negative); HSV-2 DNA Negative (Negative)
== END 2025-01-03 23:59 | disposition home or self-care (01) ==
LOC: LAB 10:59
PROVIDERS: Visit Provider Nurse Practitioner Obstetrics & Gynecology
DX: Z11.4 Encounter for screening for human immunodeficiency virus [HIV] (principal); Z11.59 Encounter for screening for other viral diseases
CPT/HCPCS: 36415; 80074; 86592; 86803; 87389; 87529

== ENCOUNTER 2025-05-16 11:33 | Outpatient (CLI) | payer OTHER, SELFPAY ==
[2025-05-16 19:34] LABS: Hematocrit 36.6 % (37.0-47.0); Hemoglobin 12.2 g/dL (12.2-16.2); Immature Granulocytes % 0.2 %; Mean Corpuscular HGB Conc 33.3 g/dL (31.8-35.4); Mean Corpuscular Hemoglobin 29.0 pg (27.0-31.2); Mean Corpuscular Volume 87.1 fl (81-99); Nucleated Red Blood Cells % 0 %; Platelet Count 336 K/mm3 (142-424); Red Blood Count 4.20 M/mm3 (4.20-5.40); Red Cell Distribution Width-SD 39.8 fL; White Blood Count 5.0 K/mm3 (4.8-10.8)
[2025-05-16 20:10] LABS: Alanine Aminotransferase 14 U/L (12-78); Albumin Level 4.5 g/dl (3.5-5.0); Albumin/Globulin Ratio 1.7 (1.1-1.8); Alkaline Phosphatase 90 U/L (38-126); Anion Gap 12.2 mEq/L (5-15); Aspartate Amino Transferase 27 U/L (14-36); Bilirubin,Total 1.0 mg/dl (0.2-1.3); Blood Urea Nitrogen 12 mg/dl (7-17); Calcium 9.6 mg/dl (8.4-10.2); Carbon Dioxide 25 mmol/L (22.0-30.0); Chloride 104 mmol/L (98-107); Creatinine,Serum 0.70 mg/dl (0.52-1.04); Estimated Glomerular Filt Rate 91 ml/min (>60); GFR (African American) 110 ML/MIN (>60); Globulin 2.6 g/dL (1.3-3.2); Glucose 94 mg/dl (74-100); Potassium 4.2 mmoL/L (3.5-5.1); Sodium 137 mmol/L (136-145); Total Protein,Serum 7.1 g/dl (6.3-8.2)
[2025-05-16 20:25] LABS: 25-OH Vitamin D, Total 45.9 ng/mL (30-100)
[2025-05-16 20:38] LABS: Thyroid Stimulating Hormone 0.49 uIU/mL (0.465-4.68)
[2025-05-16 20:57] LABS: Vitamin B12 992 pg/mL (239-931)
--- OUTSIDE RECORDS SUMMARY | 2025-05-21 11:38 | XMS_ITS | Clinical Summary ---
Author Organization [facility] Address [address] [place] [address] Care Team Providers Care Salon Assistant Name Role Phone Marquise Kelly MD Primary Care Provider [phone] Allergies Active Allergy Reactions Criticality Noted Date Comments Cat Dander Other (See Comments) Low 05/19/2024 Scratchy throat, watery eyes Dust Mite Extract Other (See Comments) 07/21/20 Medications Vit-Fe Fumarate-FA ( ) 27-1 MG tablet tablet Take by mouth Daily. Active vitamin C (ASCORBIC ACID) 500 MG tablet Take 4 tablets by mouth Daily. Active Ferrous Sulfate (IRON PO) Take 1 tablet by mouth Daily. Active Ventolin HFA 108 (90 Base) MCG/ACT inhaler prn 05/16/2024 Act mahnaz amoxicillin-cla vulanate (AUGMENTIN) 875-125 MG per tablet Take 1 tablet by mouth Every 12 (Twelve) Hours. 05/15/2024 Active cetirizine (zyrTEC) 10 MG tablet Take 1 tablet by mouth Daily. 03/11/2024 Active predniSONE 5 MG (21) tablet therapy pack dose pack TAKE 6 TABLETS ON DAY 1 THEN TAKE 5 TABLETS ON DAY 2 THEN TAKE 4 TABLETS ON DAY 3 THEN TAKE 3 TABLETS ON DAY 4 THEN TAKE 2 TABLETS ON DAY 5 THEN TAKE 1 TABLET ON DAY 6. TAKE ALL DOSES WITH FOOD. 05/15/2024 Active Active Problems Problem Noted Date Diagnosed Date Abnormal thyroid function test 05/19/2024 Assessment & Plan (05/19/2024 2:33 PM EDT): She has mildly low TSH. She appears to have small goiter on exam. She isn't clinically thyrotoxic. I would like to check labs again in about a month, after she completes her steroid taper. We discussed the diagnosis and possible etiologies of hyperthyroidism. Will contact her with lab results once these return. Simple goiter 05/19/2024 Assessment & Plan (05/19/2024 2:29 PM EDT): Small goiter noted on exam. Will continue observation for now. Incompetent cervix in , antepartum 01/24 Cervical incompetence affect ing management of in second trimester, antepartum 02/20/2020 Advanced maternal age, primigravida, antepartum 01/23/2020 Previous delivery in second trimester, a ntepartum 01/23/2020 01/23/2020 Family history of congenital heart defect 2019 Family History Medical History Relation Name Comments Cataracts Maternal Grandmother Glaucoma Maternal Grandmother Relation Name Status Comments Maternal Grandmother Social History Tobacco Use Types Packs/Day Years Used Date Smoking Tobacco: Former Smokeless Tobacco: Never Tobacco Cessation:Counseling Given: Not Answered Alcohol Use Standard Drinks/Week Comments Never 0 (1 standard drink = 0.6 oz pur e alcohol) AUDIT-C Answer Date Recorded Q1: How often do you have a drink containing alc ohol? Never 01/23/2020 Average Number of Drinks Not on file 020 Frequency of Binge Drinking Not on file 12/25 Abuse Screen Answer Date Recorded Unsafe at Home or Work/School Not on file Feels Threatened by Someone? Not on file 09/2023 Does Anyone Keep You from Co ntacting Others or Doint Things Outside the Home? Not on file 08/05/2023 Physical Sign of Abuse Present Not on file 1 Housing Stability Answer Date Recorded Current Living Arrangements Not on file 07/25 Potentially Unsafe Housing Conditions Not on leatha e 08/05/2023 Family and Community Support Answer Jhoan e Recorded Help with Day-to-Day Activities Not on file 08/05/2023 Lonely or Isolated Not on file 08/05/2023 Employment Answer Date Recorded Do you want help finding or keeping work or a katherine b? Not on file 08/05/2023 Disabilities Answer Date Recorded Concentrating, Remembering, or Making Decisions Difficulty Not on file 08/05/2023 Doing Errands Independently Difficulty Not on fi le 08/05/2023 Education Answer Date Recorded Help with school or training? Not on file Preferred Language Not on file 08/05/2023 Comments No Sex and Gender Information Value Date Recorded Sex Assigned at Not on file Legal Sex Female 6:11 PM EDT Gender Identity Not on file Sexual Orientation Not on file Last Filed Vital Signs Vital Sign Reading Time Taken Comments Blood Pressure 118/72 05/19/2024 1:46 PM EDT Pulse 69 05/19/2024 1:46 PM EDT Temperature 36.3 C (97.3 F) 05/19/2024 1:46 PM EDT Respiratory Rate 16 02/21/2020 4:20 PM EDT Oxygen Saturation 97% 05/19/2024 1:46 PM EDT Inhaled Oxygen Concentration - - Weight 93.9 kg (207 lb) 05/19/2024 1:46 PM EDT Height 166.4 cm (5' 5.51 ) 05/19/2024 1:46 PM ED T Body Mass Index 33.91 05/19/2024 1:46 PM EDT Plan of Treatment Health Maintenance Due Date Last Done Comments Annual Gynecologic Pelvic an d Breast Exam 1980 PAP SMEAR 2001 ANNUAL PHYSICAL 01/23/2020 HEPATITIS C SCREENING 01/23/2020 MAMMOGRAM 2020 COVID-19 Vaccine ( - 2023-2 5 season) 2024 10/01/2021, 02/21/2021, 01/24/2021 INFLUENZA VACCINE 07/25/2025 TDAP/TD VACCINES (2 - Td or Tdap) 05/07/2027 05/07/2017 Pneumococcal Vaccine 0-49 Aged Out No longer eligible based on patient's age to complete this topic Insurance [facility] Advance Directives * CPR (Attempt to Resuscitate) (Latest Code Status on File) Date Activated Date Inactivated Comments 02/21/2020 8:39 AM 02/21/2020 7:39 PM Question Answer Comments Code Status (Patient has no pulse and is not breathing): CPR (Attempt to Resuscitate) Medical Interventions (Patie nt has pulse or is breathing): Full Care Teams Salon Assistant Relationship Specialty Start Date End Date Marquise Kelly MD [address] [facility] [address] [facility] [place] [id number] PCP - General Obstetrics and Gynecology 02/19/20
--- OUTSIDE RECORDS SUMMARY | 2025-05-21 11:39 | XMS_ITS | Data Portability ---
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 An counseling and education was done regarding patients symptoms related to their diagnosis in the office. Patient provided verbal consent for these services. A care management service for the diagnosis to be provided for at least 20 minutes of clinical time, performed per calendar month including initial assessment, systematic assessment and monitoring, using applicable validated clinical rating scales, facilitation and coordination of behavioral health treatment, continuous relationship with the care team. These validated rating scales will be repeated monthly to reassess presence or absence of daily dysfunction and emotional stress that patient experiences due to the level of pain and suffering to help adjust treatment plans. Additionally, the patient was instructed to keep mood and sleep logs using a HIPAA-compliant software platform which the care team can access to monitor and care for the patient. Through this platform, the patient also has access to various behavioral health resources including journaling, guided meditation, and crisis support. The care team helped the patient set up their account and reviewed how to use the platform. Patient completed ДМИТРИЙ-7 on 12/21/2024 with scoring of 10 , indicating 10 14: moderate anxiety. Clinically validated interventions were considered and subsequently presented to the patient for their consideration and agreement. Patient was instructed to call our office if symptoms worsen. Through the govind, the patient was assigned the Reoccurring Assessments activity template, which includes informational videos, journals, and ДМИТРИЙ-2 / ДМИТРИЙ-7, PHQ-9, PDUQp, Oswestry - Lower Back, ORT-OUD. Patient was not contacted by our clinical support team but provided resources through the govind. [email or web address] Not available 12/25/2024 13:24:32 12/28/2024 12/28/2024 Care management services and General Behavioral Health Integration (CPT 23362) was provided for at least 20 minutes of clinical time in accordance with state regulation. Services included systematic assessment and monitoring, using applicable validated clinical rating scales, facilitation and coordination of behavioral health treatment, and continuous relationship with the care team. Patient has been provided a HIPAA-compliant software platform which the care team can access to monitor and care for the patient. This platform provides mindfulness activities, patient education materials pertaining to the patient s psychosocial status and diagnosis, along with crisis resource information. Validated clinical rating scales will be repeated monthly to reassess presence or absence of daily dysfunction and emotional stress that may be related to physical health conditions, social or environmental factors. These assessments will guide us to provide a better pain management treatment. Care plans will continue to be updated monthly in accordance to changes in behavioral and physical health status. Medications will be closely monitored and adjusted according to validated rating scales and subjective data provided by patient (mood and sleep). Complete subjective and objective patient data is available in the patient records. Patient completed ДМИТРИЙ-7 on 12/28/2024 with scoring of 6 , indicating 5 9: mild anxiety. Clinically validated interventions were considered and subsequently presented to the patient for their consideration and agreement. Patient was instructed to call our office if symptoms worsen. Through the govind, the patient was assigned the Reoccurring Assessments activity template, which includes informational videos, journals, and ДМИТРИЙ-2 / ДМИТРИЙ-7, PHQ-9, PDUQp, Oswestry - Lower Back, ORT-OUD. Patient was not contacted by our clinical support team but provided resources through the govind. [email or web address] Not available 01/05/2025 12:53:29 02/01/2025 02/01/2025 Care management services and General Behavioral Health Integration (CPT 52878) was provided for at least 20 minutes of clinical time in accordance with state regulation. Services included systematic assessment and monitoring, using applicable validated clinical rating scales, facilitation and coordination of behavioral health treatment, and continuous relationship with the care team. Patient has been provided a HIPAA-compliant software platform which the care team can access to monitor and care for the patient. This platform provides mindfulness activities, patient education materials pertaining to the patient s psychosocial status and diagnosis, along with crisis resource information. Validated clinical rating scales will be repeated monthly to reassess presence or absence of daily dysfunction and emotional stress that may be related to physical health conditions, social or environmental factors. These assessments will guide us to provide a better pain management treatment. Care plans will continue to be updated monthly in accordance to changes in behavioral and physical health status. Medications will be closely monitored and adjusted according to validated rating scales and subjective data provided by patient (mood and sleep). Complete subjective and objective patient data is available in the patient records. Patient completed ДМИТРИЙ-7 with scoring below threshold for clinically necessary intervention (score less than 6). Patient completed PHQ-9 on 02/01/2025 with scoring of 6 , indicating mild depression. No suicidal ideation was endorsed. Patient answered no to all questions related to self-harm. Through the govind, the patient was assigned the Reoccurring Assessment activity template, which includes informational videos, journals, and ДМИТРИЙ-2 / ДМИТРИЙ-7, PHQ-9*, PDUQp, Oswestry - Lower Back, ORT-OUD. . Patient was not contacted by our clinical support team but provided resources through the govind. The patient s next visit is on 03/07/2025 . Care management services and General Behavioral Health Integration (CPT 77156) was provided for at least 20 minutes of clinical time in accordance with state regulation. Services included systematic assessment and monitoring, using applicable validated clinical rating scales, facilitation and coordination of behavioral health treatment, and continuous relationship with the care team. Patient has been provided a HIPAA-compliant software platform which the care team can access to monitor and care for the patient. This platform provides mindfulness activities, patient education materials pertaining to the patient s psychosocial status and diagnosis, along with crisis resource information. Validated clinical rating scales will be repeated monthly to reassess presence or absence of daily dysfunction and emotional stress that may be related to physical health conditions, social or environmental factors. These assessments will guide us to provide a better pain management treatment. Care plans will continue to be updated monthly in accordance to changes in behavioral and physical health status. Medications will be closely monitored and adjusted according to validated rating scales and subjective data provided by patient (mood and sleep). Complete subjective and objective patient data is available in the patient records. Patient completed ДМИТРИЙ-7 on 02/01/2025 with scoring of 6 , indicating 5 9: mild anxiety. Clinically validated interventions were considered and subsequently presented to the patient for their consideration and agreement. Patient was instructed to call our office if symptoms worsen. Through the govind, the patient was assigned the Reoccurring Assessments activity template, which includes informational videos, journals, and ДМИТРИЙ-2 / ДМИТРИЙ-7, PHQ-9, PDUQp, Oswestry - Lower Back, ORT-OUD. Patient was not contacted by our clinical support team but provided resources through the govind. The patient s next visit is on 03/07/2025 . [email or web address] Not available 02/04/2025 18:29:17 Plan of Treatment Reminders Order Date Submit Date Provider Last Modified By Organization Details Last Modified Time Details Appointments None recorded. Lab None recorded. Referral None recorded. Procedures lumbar radiofreque ncy ablation (PROC) - RFA Lumbar Bilateral L3-L5 w/sed Dutton Jerrod 2024 025 [email or web address] Not available 21:10:05 Surgeries None recorded. Imaging None recorded. Medication Orders None recorded. Patient TargetsNo targets recorded. Patient InstructionsNo instructions recorded. Reason for Referral None Reported. Problems Name Problem SNOMED Code Status Onset Date Resolution Date Notes Provider Name and Address Organization Details Recorded Time Chronic pain 10323808 Active 2024 Nusrat stamper null, [place] - [facility] 5 13:51:34 Lumbar radiculopat hy 083237653 Active 2024 Nusrat stamper null, [place] - [facility] 5 13:51:34 Lumbar spondylosis 365473160 Active 2024 Nusrat stamper null, [place] - [facility] 5 12:56:58 Spondylosis with radiculopat hy 947604221 Active 2024 Nusrat stamper null, [place] - [facility] 13:51:34 Overweight 461455463 Active 2024 Nusrat peterson [facility] 13:51:38 Pain disorder with psychologic al factor 842497601031 Active 2024 Peyton Infante [facility] 18:28:50 Problem Notes None recorded. Procedures Surgical History Date Name Laterality Status Provider Name and Address Organization Details Recorded Time Lumbar RFA (2 Level Bilateral) completed ANDRES SOTOMAYOR MD [address] [place] [address], [phone], [facility] 01/24/2025 18:37:58 5 Diagnostic Lumbar MBB (2 Level Bilateral) completed Alma Almonte [facility] 01/08/2025 10:13:10 5 Diagnostic Lumbar MBB (2 Level Bilateral) completed ANDRES SOTOMAYOR MD [address] [place] [address], [phone], [facility] 12/20/2024 15:14:19 Imaging Results None recorded. Procedure Notes None recorded. Medical Equipment None Reported. Allergies No known drug allergies Medications Name Sig Start Date Stop Date Status Note LastModified by Organization Details LastModified Time cyclobenzap rine 10 mg tablet 2024 active Not Available Not Available Not Avai lable buspirone 5 mg tablet TAKE 1 TABLET BY MOUTH TWICE DAILY TAKE WITH FOOD AT BREAKFAST AND DINNER active Not Available Not Available No t Available promethazin e-DM 6.25 mg-15 mg/5 mL oral syrup TAKE 5 ML BY MOUTH EVERY 4 TO 6 HOURS NEEDED FOR COUGH FOR 10 DAYS 12/14 completed Not Available Not Available Not Available cetirizine 10 mg tablet TAKE 1 TABLET BY MOUTH ONCE DAILY active Not Available Not Available No t Available azithromyci n 250 mg tablet TAKE 2 TABLETS BY MOUTH ON DAY 1, AND THEN TAKE 1 TABLET BY MOUTH ONCE A DAY ON DAY 2 THROUGH DAY 5 12/14 completed Not Available Not Available Not Available ibuprofen 800 mg tablet TAKE 1 TABLET BY MOUTH EVERY 8 HOURS NEEDED active Not Available Not Available No t Available hydrocodone 5 mg-acetamin ophen 325 mg tablet TAKE 1 TABLET BY MOUTH EVERY 6 HOURS active Not Available Not Available No t Available promethazin e 12.5 mg tablet TAKE 1 TO 2 TABLETS BY MOUTH EVERY 6 HOURS NEEDED FOR NAUSEA 12/14 completed Not Available Not Available Not Available ondansetron HCl 4 mg tablet TAKE 1 TABLET BY MOUTH THREE TIMES DAILY NEEDED FOR NAUSEA FOR 10 DAYS active Not Available Not Available No t Available prednisone 20 mg tablet TAKE 1 TABLET BY MOUTH ONCE DAILY FOR 5 DAYS 12/14 completed Not Available Not Available Not Available tramadol 50 mg tablet TAKE 1 TABLET BY MOUTH EVERY 8 HOURS NEEDED 12/14 completed Not Available Not Available Not Available ketorolac 10 mg tablet active Not Available Not Available Not Available propranolol 10 mg tablet TAKE 1 TABLET BY MOUTH ONCE DAILY NEEDED FOR ANXIETY active Not Available Not Available No t Available methocarbam ol 750 mg tablet TAKE 1 TABLET BY MOUTH 4 TIMES DAILY 12/14 completed Not Available Not Available Not Available neomycin-po lymyxin-dex ameth 3.5 mg/mL-10,00 0 unit/mL-0.1 % eye drops INSTILL 1 DROP INTO RIGHT EYE 4 TIMES DAILY FOR 4 DAYS 12/14 completed Not Available Not Available Not Available fluoxetine 10 mg capsule TAKE 1 CAPSULE BY MOUTH ONCE DAILY 12/14 completed Not Available Not Available Not Available diclofenac sodium 75 mg tablet,lakeshia yed release TAKE 1 TABLET BY MOUTH EVERY 12 HOURS active Not Available Not Available No t Available azelastine 137 mcg (0.1 %) nasal spray USE 2 SPRAY(S) IN EACH NOSTRIL TWICE DAILY NEEDED active Not Available Not Available No t Available prednisone 5 mg tablets in a dose pack TAKE 6 TABLETS ON DAY 1 THEN TAKE 5 TABLETS ON DAY 2 THEN TAKE 4 TABLETS ON DAY 3 THEN TAKE 3 TABLETS ON DAY 4 THEN TAKE 2 TABLETS ON DAY 5 THEN TAKE 1 TABLET ON DAY 6. TAKE ALL DOSES WITH FOOD. 12/14 completed Not Available Not Available Not Available methylpredn isolone 4 mg tablets in a dose pack TAKE ONE TABLET BY MOUTH PER PACKAGE DIRECTION S active Not Available Not Available No t Available bromphenira mine-pseudo ephedrine-D M 2 mg-30 mg-10 mg/5 mL oral syrup TAKE 10 ML (CC) BY MOUTH EVERY 8 HOURS NEEDED 12/14 completed Not Available Not Available Not Available fluoxetine 20 mg capsule TAKE 1 CAPSULE BY MOUTH ONCE DAILY active Not Available Not Available No t Available fluticasone propionate 50 mcg/actuati on nasal spray,suspe nsion USE 1 TO 2 SPRAY(S) IN EACH NOSTRIL ONCE DAILY active Not Available Not Available No t Available doxycycline hyclate 100 mg tablet TAKE 1 TABLET BY MOUTH EVERY 12 HOURS 12/14 completed Not Available Not Available Not Available amoxicillin 875 mg-potassiu m clavulanate 125 mg tablet TAKE 1 TABLET BY MOUTH TWICE DAILY 12/14 completed Not Available Not Available Not Available Ventolin HFA 90 mcg/actuati on aerosol inhaler INHALE 2 PUFFS BY MOUTH EVERY 4 TO 6 HOURS active Not Available Not Available No t Available cyclobenzap rine 5 mg tablet 12/14 completed Not Available Not Available Not Available bupropion HCl XL 150 mg 24 hr tablet, extended release TAKE 1 TABLET BY MOUTH ONCE DAILY IN THE MORNING active Not Available Not Available No t Available Vitals None Recorded Social History Question Answer Notes LastModified by Organizat ion Details LastModified Time Tobacco Smoking Status Former Smoker Nusrat evans [place] - [facility] 12/14/2024 13:50:52 Do You Have An Advance Directive? No Information not available 12/14/2024 What Type Of Diet Are You Following? REGULAR Information not available 12/14/2024 Which Illicit Or Recreational Drugs Have You Used? Cocaine Information not available 12/14/2024 What Is The Highest Grade Or Level Of School You Have Completed Or The Highest Degree You Have Received? [id number] Information not available 12/14/2024 How Many Years Have You Used Illicit Or Recreational Drugs? 2015 Information not available 12/14/2024 Do You Have Knee Pain? No Information not available 12/14/2024 Have You Had A Knee Replacement? No Information no t available 12/14/2024 Is Your Knee Pain Being Treated By Someone Else? No Information not available 12/14/2024 Are You Interested In Consulting Us For Your Knee Pain? No Information not available 12/14/2024 Do You Have A Medical Power Of Casket Liner? No Information not available 12/14/2024 What Was The Date Of Your Most Recent Tobacco Screening? 12/14/2024 Information not available 12/14/2024 What Is Your Relationship Status? Unknown Information not available 12/14/2024 Have You Used IV Drugs? No Information not available 12/14/2024 Sex: Unknown Functional Status Question Answer Note LastModified by Organizat ion Details LastModified Time Do you use any illicit or recreational drugs? Yes Information not available 12/14/2024 What is your level of alcohol consumption? None Information not available 12/14/2024 Are you currently employed? Yes Information not available 12/14/2024 Are you able to walk? YESWOREST Information not available 12/14/2024 What is your exercise level? None Information not available 12/14/2024 Mental Status None recorded. Family History Nothing Reported. Medical History Condition Response Bipolar Disease N Coronary Artery Disease N Seizure Disorder N Gout N Atrial Fibrillation N Thyroid Disease N Hernia N Head Trauma/Injury N COPD N Depression N Anxiety Disorder N Acid Reflux (GERD) N Cancer N Skin Disorder N Stroke N High Cholesterol N Liver Disease N Rheumatoid Arthritis N Headaches N Fibromyalgia N Autoimmune Disease N Kidney Disease N Osteoarthritis N Neurosurgery N DVT N Peptic Ulcer Disease N Anemia N Heart Attack (NH) N Diabetes N Cardiomyopathy N Bleeding Disorder N CHF N AIDS/HIV N Inflammatory Bowel Disease N Dementia N Asthma N Substance Abuse N Sleep Apnea N Hepatitis N Heart Disease N Pulmonary Embolism N Chronic Low Back Pain N Hypertension N Osteoporosis N Gynecological HistoryNo gynecological history recorded. Obstetrics History GPAL:G 0 P 0 0 0 0 Past Encounters Encounter ID Performer Location Encounter Start Date Encounter Closed Date Diagnosis/Indication Diagnosis SNOMED-CT Code Diagnosis ICD10 Code Diagnosis Note [id number] ANDRES SOTOMAYOR MD [place] [address] [address] [place] [address] 12/14/2024 13:45:08 12/14/2024 14:45:29 Lumbar spondylosis 251042933 M47.816 Chronic pain 77936106 G8 9.29 [id number] MD [place] [address] [place] [address] 12/20/2024 13:28:13 12/20/2024 14:23:31 Lumbar spondylosis 276417065 M47.043 [id number] MD Charo SPEARS [address] [place] [address] 12/25/2024 13:23:40 12/25/2024 13:25:06 Pain disorder with psychological factor 8456353294 07 F45.42 [id number] MD Charo SPEARS [address] [facility] [address] 01/08/2025 09:08:00 01/08/2025 10:11:39 Lumbar spondylosis 702070826 M47.644 [id number] MD Charo SPEARS [address] [facility] [address] 01/05/2025 12:52:41 01/05/2025 12:53:57 Pain disorder with psychological factor 3725366749 07 F45.42 [id number] MD Charo SPEARS [address] [place] [address] 01/24/2025 15:34:35 01/24/2025 16:48:01 Lumbar spondylosis 943569193 M47.863 [id number] MD Charo SPEARS [address] [place] [address] 02/04/2025 18:28:30 02/04/2025 18:29:58 Pain disorder with psychological factor 5330558204 07 F45.42 Health Concerns Section Related Observation LastModified by Organization Detai ls LastModified Time None Recorded Concern Status LastModified by Organization Details LastModified Time None Recorded Advance Directives Directive N: Payers Insurance Date Sequence Insurance Name Policy Number Policy Alatorre Covered Member ID Alatorre Member ID Guarantor Name 03/04/2025 1 [employer] [facility] (MEDICAID HMO) Brendon Hubbard [id number] Brendon Hubbard OBGyn Episode No OBEpisode recorded.
--- OUTSIDE RECORDS SUMMARY | 2025-05-21 11:39 | XMS_ITS | Clinical Summary ---
Author Organization [facility] Address [address] [place] [address] Care Team Providers Care Tag Press Operator Name Role Phone Elizabeth Cueto APRN Primary Care Provider [phone]- [phone] Social History Tobacco Use Types Packs/Day Years Used Date Smoking Tobacco: Never Alcohol Use Standard Drinks/Week Comments No 0 (1 standard drink = 0.6 oz pur e alcohol) Comments Unknown Sex and Gender Information Value Date Recorded Sex Assigned at Not on file Legal Sex Female 6:03 PM EDT Gender Identity Not on file Sexual Orientation Not on file Last Filed Vital Signs Vital Sign Reading Time Taken Comments Blood Pressure 118/79 08/12/2020 1:37 PM EDT Pulse 90 08/12/2020 1:37 PM EDT Temperature - - Respiratory Rate - - Oxygen Saturation - - Inhaled Oxygen Concentration - - Weight 99.9 kg (220 lb 3.8 oz) 08/12/2020 1:37 P M EDT Height 170.2 cm (5' 7 ) 11/06/2016 2:20 PM EST Body Mass Index 34.49 11/06/2016 2:20 PM EST Plan of Treatment Not on file Insurance [employer] [place] Care Teams Tag Press Operator Relationship Specialty Start Date End Date Elizabeth Cueto APRN [address] [place] [id number] PCP - General 03/07/21
--- OUTSIDE RECORDS SUMMARY | 2025-05-21 11:39 | XMS_ITS | Data Portability ---
Author Organization [place] - [facility] - [place] [facility] ADMIN Address [address] [place] [id number] Care Team Providers Care Impregnator And Drier Helper Name Role Phone YASMANY DEL CID Primary Care Provider Assessment Encounter Date Assessment Date Assessment LastModified by Organization Details LastModified Time 06/15/2024 06/15/2024 Ms. Hubbard is her for 1) Hepatitis B Core antibody detected - PCP recently bridget labs which showed Core antibody and surface antibody were positive. This is likely a past infection. Will obtain Hep B core antibody., Hep B surface antigen and Hep B DNA quant to verify this is not an active infection. - We have discussed routes of transmission and measures needed to take to prevent transmission. We have also discussed possible symptoms of acute infection for her to Monitor. She will call the office if she starts to have any jaundice, swelling and been her abdomen and pelvis, abdominal pain, dark urine, light-colored stool - She is asymptomatic so we will follow up in 6-8 weeks. Will recheck labs at that time if active infection 2)Nocturia - reports frequent urination at night - recent labs from PCP reviewed. A1c less than 5 so diabetes is not a contributing factor. - denies fever, dysuria, or foul-smelling urine - She does not drink much coffee or pop. - discuss limiting water before bed - she is obese, has history of vaginal with cervical cerclage. She is interested in referral to pelvic floor therapy ( referral placed) 3)Colorectal cancer Screening - no hx colon cancer. colonoscopy age 45 Not available 06/15/2024 11:40:53 08/10/2024 08/10/2024 Ms. Hubbard is her for 1) Hepatitis B Core antibody detected - Hepatitis B core antibody, hep B surface antibody positive but hepatitis B surface antigen negative. She is naturally immune - I recommended Vaccination for hep A at next primary care visit 2)Nocturia - Recommend follow up with pelvic floor therapy 3)Colorectal cancer Screening - no hx colon cancer. colonoscopy age 45 Not available 08/10/2024 14:27:05 Plan of Treatment Reminders Order Date Submit Date Provider Last Modified By Organization Details Last Modified Time Details Appointments None recorded. Lab hepatitis B surface Ab, qualitativ e, serum [address] (Registration ), [address] , [place], [address], 4 15:31:14 HBsAg (hepatitis B surface Ag), serum [address] (Registration ), [address] [place], [address], 4 15:31:14 hepatitis B DNA, quantitati ve, serum [address] (Registration ), [address] [place], [address], 4 15:31:14 Hepatitis B virus core Ab, qual immunoassa y, serum or plasma [address] (Registration ), [address] [place], [address], 4 15:31:14 [facility], serum or [facility] [address] [place], [address], 4 12:26:06 PT/INR [address] (Registration ), [address] [place], [address], 4 15:31:15 CBC w/ auto diff 2023 024 KELSEY [facility] (Registration ), [address], [place], [address], 4 11:31:18 hbcab (hepatitis B core Ab), igg+igm, serum 2023 024 [email or web address] [id number] [facility] (Registration ), [address], [place], [address], 4 15:31:15 Referral None recorded. Procedures None recorded. Surgeries None recorded. Imaging None recorded. Medication Orders None recorded. Patient TargetsNo targets recorded. Patient InstructionsNo instructions recorded. Reason for Referral None Reported. Results Created Date Observation Date Name Description Value Unit Range Abnormal Flag Note LastModifiedBy Organization Detail LastModifiedTime 06/15/20 24 06/15/2024 CBC AUTO W DIFF WBC 4.5 K/uL 4.0-10 .5 Not Available [facility] ([facility]) [address], [place], [address], 06/15/2024 11:31:18 06/15/20 24 06/15/2024 CBC AUTO W DIFF RBC 4.2 M/mm3 4.2-6. 4 Not Available [facility] ([facility]) [address], [place], [address], 06/15/2024 11:31:18 06/15/20 24 06/15/2024 CBC AUTO W DIFF HGB 11.9 gm/dL 12.5-1 6.0 low Not Available [facility] ([facility]) [address] [place], [address], 06/15/2024 11:31:18 06/15/20 24 06/15/2024 CBC AUTO W DIFF HCT 37.2 % 37.0-4 7.0 Not Available [facility] ([facility]) [address] [place], [address], 06/15/2024 11:31:18 06/15/20 24 06/15/2024 CBC AUTO W DIFF MCV 89.0 fL 78-100 Not Available [facility] ([facility]) [address], [place], [address], 06/15/2024 11:31:18 06/15/20 24 06/15/2024 CBC AUTO W DIFF MCH 28.5 pg 27-31 Not Available [facility] ([facility]) [address], [place], [address], 06/15/2024 11:31:18 06/15/20 24 06/15/2024 CBC AUTO W DIFF MCHC 32.0 g/dL 32-36 Not Available [facility] ([facility]) [address] , [place], [address], 06/15/2024 11:31:18 06/15/20 24 06/15/2024 CBC AUTO W DIFF RDW 12.1 % 11.5-1 4.0 Not Available [facility] ([facility]) [address] , [place], [address], 06/15/2024 11:31:18 06/15/20 24 06/15/2024 CBC AUTO W DIFF platelet count 302 K/uL 150-45 0 Not Available [facility] ([facility]) [address] , [place], [address], 06/15/2024 11:31:18 06/15/20 24 06/15/2024 CBC AUTO W DIFF MPV 9.6 fL 6-9.5 high Not Available [facility] ([facility]) [address] , [place], [address], 06/15/2024 11:31:18 06/15/20 24 06/15/2024 CBC AUTO W DIFF neutrophil% 50.6 % 43-65 Not Available [facility] ([facility]) [address], [place], [address], 06/15/2024 11:31:18 06/15/20 24 06/15/2024 CBC AUTO W DIFF lymphocyte% 38.0 % 20.5-4 5.5 Not Available [facility] ([facility]) [address] , [place], [address], 06/15/2024 11:31:18 06/15/20 24 06/15/2024 CBC AUTO W DIFF monocyte% 8.5 % 5.5-11 .7 Not Available [facility] ([facility]) [address] , [place], [address], 06/15/2024 11:31:18 06/15/20 24 06/15/2024 CBC AUTO W DIFF eosinophil% 1.6 % 0.9-2. 9 Not Available [facility] ([facility]) [address] , [place], [address], 06/15/2024 11:31:18 06/15/20 24 06/15/2024 CBC AUTO W DIFF basophil% 1.1 % 0.2-1. 0 high Not Available [facility] ([facility]) [address] , [place], [address], 06/15/2024 11:31:18 06/15/20 24 06/15/2024 CBC AUTO W DIFF immature granulocytes % 0.2 % 0.0-0. 8 Not Available [facility] ([facility]) [address] [place], [address], 06/15/2024 11:31:18 06/15/20 24 06/15/2024 CBC AUTO W DIFF nucleated red blood cells % 0.0 % Not Available [facility] ([facility]) [address] [place], [address], 06/15/2024 11:31:18 06/15/20 24 06/15/2024 CBC AUTO W DIFF neutrophil# 2.3 K/uL 2.2-4. 8 Not Available [facility] ([facility]) [address] [facility], [place], [address], 06/15/2024 11:31:18 06/15/20 24 06/15/2024 CBC AUTO W DIFF lymphocyte# 1.7 cell/ mcL 1.3-2. 9 Not Available [facility] ([facility]) [address] [facility], [place], [address], 06/15/2024 11:31:18 06/15/20 24 06/15/2024 CBC AUTO W DIFF monocyte# 0.4 cell/ mcL 0.3-0. 8 Not Available [facility] ([facility]) [address] [facility], [place], [address], 06/15/2024 11:31:18 06/15/20 24 06/15/2024 CBC AUTO W DIFF eosinophil# 0.1 cell/ mcL 0-0.2 Not Available [facility] ([facility]) [address] [facility], [place], [address], 06/15/2024 11:31:18 06/15/20 24 06/15/2024 CBC AUTO W DIFF basophil# 0.1 cell/ mcL 0.0-1. 0 Not Available [facility] ([facility]) [address] [place], [address], 06/15/2024 11:31:18 06/15/20 24 06/15/2024 CBC AUTO W DIFF immature gramulocytes # 0.01 K/uL Not Available [facility] ([facility]) [address] [place], [address], 06/15/2024 11:31:18 06/15/20 24 06/15/2024 CBC AUTO W DIFF nucleated red blood cells # 0.00 K/uL Not Available [facility] ([facility]) [address] [place], [address], 06/15/2024 11:31:18 06/15/20 24 06/15/2024 CBC AUTO W DIFF manual differential NO Not Available [facility] ([facility]) [address], [place], [address], 06/15/2024 11:31:18 06/15/20 24 06/15/2024 PT (PROT HROMB IN TIME) W INR prothrombin time 10.5 secon ds 9.3-11 .4 Not Available [facility] ([facility]) [address], [place], [address], 06/15/2024 11:48:59 06/15/20 24 06/15/2024 PT (PROT HROMB IN TIME) W INR INR 1.0 ratio 0.97-1 .05 INR is inten ded to be used ONLY for patie nts on stabl e oral antic oagul ant thera py. Thera peuti c Range s: 2.0-3 .0 Usual Thera peuti c Range 2.5-3 .5 For patie nts with histo ry of Multi ple Deep Vein Throm bus or Mecha nical Heart Valve s Not Available [facility] ([facility]) [address], [place], [address], 06/15/2024 11:48:59 06/15/20 24 06/15/2024 COMP METAB OLIC PANEL sodium 139 mmol/ L 136-14 5 Not Available [facility] ([facility]) [address], [place], [address], 06/15/2024 12:26:06 06/15/20 24 06/15/2024 COMP METAB OLIC PANEL potassium 4.1 mmol/ L 3.6-5. 0 Not Available [facility] ([facility]) [address], [place], [address], 06/15/2024 12:26:06 06/15/20 24 06/15/2024 COMP METAB OLIC PANEL chloride 103 mmol/ L 98-107 Not Available [facility] ([facility]) [address], [place], [address], 06/15/2024 12:26:06 06/15/20 24 06/15/2024 COMP METAB OLIC PANEL carbon dioxide 28.9 mmol/ L 21.0-3 2.0 Not Available [facility] ([facility]) [address], [place], [address], 06/15/2024 12:26:06 06/15/20 24 06/15/2024 COMP METAB OLIC PANEL anion gap 11.2 Not Available [facility] ([facility]) [address], [place], [address], 06/15/2024 12:26:06 06/15/20 24 06/15/2024 COMP METAB OLIC PANEL glucose 89 mg/dL 70-120 Not Available [facility] ([facility]) [address], [place], [address], 06/15/2024 12:26:06 06/15/20 24 06/15/2024 COMP METAB OLIC PANEL BUN 8 mg/dL 7-18 Not Available [facility] ([facility]) [address] , [place], [address], 06/15/2024 12:26:06 06/15/20 24 06/15/2024 COMP METAB OLIC PANEL creatinine 0.7 mg/dL 0.6-1. 3 Not Available [facility] ([facility]) [address] , [place], [address], 06/15/2024 12:26:06 06/15/20 24 06/15/2024 COMP METAB OLIC PANEL glomerular filtration rate >60 mlper min 60- Not Available [facility] ([facility]) [address], [place], [address], 06/15/2024 12:26:06 06/15/20 24 06/15/2024 COMP METAB OLIC PANEL total protein 7.7 g/dL 6.4-8. 2 Not Available [facility] ([facility]) [address], [place], [address], 06/15/2024 12:26:06 06/15/20 24 06/15/2024 COMP METAB OLIC PANEL albumin 3.8 g/dL 3.4-5. 0 Not Available [facility] ([facility]) [address], [place], [address], 06/15/2024 12:26:06 06/15/20 24 06/15/2024 COMP METAB OLIC PANEL globulin 3.9 Not Available [facility] ([facility]) [address] , [place], [address], 06/15/2024 12:26:06 06/15/20 24 06/15/2024 COMP METAB OLIC PANEL alb/glob ratio 1.0 0.7-2 Not Available [facility] ([facility]) [address], [place], [address], 06/15/2024 12:26:06 06/15/20 24 06/15/2024 COMP METAB OLIC PANEL calcium 9.1 mg/dL 8.5-10 .5 Not Available [facility] ([facility]) [address] , [place], [address], 06/15/2024 12:26:06 06/15/20 24 06/15/2024 COMP METAB OLIC PANEL bilirubin total 0.50 mg/dL 0.10-1 .00 Not Available [facility] ([facility]) [address] , [place], [address], 06/15/2024 12:26:06 06/15/20 24 06/15/2024 COMP METAB OLIC PANEL AST (SGOT) 14 U/L 0-37 Not Available [facility] ([facility]) [address] [facility], [place], [address], 06/15/2024 12:26:06 06/15/20 24 06/15/2024 COMP METAB OLIC PANEL ALT (SGPT) 16 U/L 0-65 Not Available [facility] ([facility]) [address] [facility], [place], [address], 06/15/2024 12:26:06 06/15/20 24 06/15/2024 COMP METAB OLIC PANEL alk phosphatase 109 U/L 46-116 Not Available [facility] ([facility]) [address] [facility], [place], [address], 06/15/2024 12:26:06 06/15/20 24 06/16/2024 HEPAT ITIS B DNA QUANT hpbamppb HBV DNA not detect ed IU/mL Not Available [facility] ([facility]) [address] [facility], [place], [address], 06/16/2024 20:10:45 06/15/20 24 06/16/2024 HEPAT ITIS B DNA QUANT HBV IU/mL TNP log10 _IU/m L Unabl e to calcu late resul t since non-n umeri c resul t obtai yohan for compo nent test. Not Available [facility] ([facility]) [address] [facility], [place], [address], 06/16/2024 20:10:45 06/15/20 24 06/16/2024 HEPAT ITIS B DNA QUANT test information Commen t . The repor table range for this assay is 10 IU/mL to 1 ashley on IU/mL . Perfo rmed at: [facility] [address] [place] [address] Lab Direc tor: Bee addison MD, Phone : [phone] Not Available [facility] ([facility]) [address] [facility], [place], [address], 06/16/2024 20:10:45 06/15/20 24 06/16/2024 HEP B S AB GRISEL hep B surface Ab 1418.0 mIU/m L immuni ty>10 Resul ts confi rmed on dilut ion. Statu s of Immun ity Anti- HBs Level ----- ----- ----- --- ----- ----- ---- Incon siste nt with Immun ity 0.0 - 10.0 Consi stent with Immun ity >10.0 Perfo rmed at: [place] [id number] [facility] Lab Direc tor: Patrick rodas PhD, Phone : [phone] Not Available [facility] ([facility]) [address] [place], [address], 06/16/2024 20:10:46 06/15/20 24 06/16/2024 HEPAT ITIS B SURFA CE AG EIA HBsAg screen Negati ve negati ve Perfo rmed at: [address] [address] [facility] Lab Direc tor: Patrick rodas PhD, Phone : [phone] Not Available [facility] ([facility]) [address] [place], [address], 06/16/2024 20:10:47 06/15/20 24 06/16/2024 HEP B CORE AB IGM QUAL hep B core Ab, IgM Negati ve negati ve Perfo rmed at: [address] [address] Lab Direc tor: Patrick rodas PhD, Phone : [phone] Not Available [facility] ([facility]) [address] [place], [address], 06/16/2024 20:10:47 Result Notes None recorded. Medical Equipment None Reported. Allergies No known drug allergies Medications Name Sig Start Date Stop Date Status Note LastModified by Organization Details LastModified Time cyclobenzap rine 10 mg tablet TAKE 1 TABLET BY MOUTH THREE TIMES DAILY NEEDED FOR MUSCLE SPASM FOR 10 DAYS active Not Available Not Available No t Available buspirone 5 mg tablet TAKE 1 TABLET BY MOUTH TWICE DAILY TAKE WITH FOOD AT BREAKFAST AND DINNER active Not Available Not Available No t Available prednisone 10 mg tablet TAKE 1 TABLET BY MOUTH TWICE DAILY FOR 5 DAYS 06/15 completed Not Available Not Available Not Available cetirizine 10 mg tablet TAKE 1 TABLET BY MOUTH ONCE DAILY active Not Available Not Available No t Available azithromyci n 250 mg tablet TAKE 2 TABLETS BY MOUTH ON DAY 1, AND THEN TAKE 1 TABLET BY MOUTH ONCE A DAY ON DAY 2 THROUGH DAY 5 active Not Available Not Available No t Available ibuprofen 800 mg tablet TAKE 1 TABLET BY MOUTH THREE TIMES DAILY NEEDED FOR FEVER FOR 10 DAYS active Not Available Not Available No t Available promethazin e 12.5 mg tablet TAKE 1 TO 2 TABLETS BY MOUTH EVERY 6 HOURS NEEDED FOR NAUSEA 06/15 completed Not Available Not Available Not Available ondansetron HCl 4 mg tablet TAKE 1 TABLET BY MOUTH THREE TIMES DAILY NEEDED FOR NAUSEA FOR 10 DAYS active Not Available Not Available No t Available tramadol 50 mg tablet TAKE 1 TABLET BY MOUTH EVERY 8 HOURS NEEDED 06/15 completed Not Available Not Available Not Available propranolol 10 mg tablet TAKE 1 TABLET BY MOUTH ONCE DAILY NEEDED FOR ANXIETY 06/15 completed Not Available Not Available Not Available amoxicillin 875 mg tablet active Not Available Not Available Not Available methocarbam ol 750 mg tablet TAKE 1 TABLET BY MOUTH 4 TIMES DAILY 06/15 completed Not Available Not Available Not Available benzonatate 100 mg capsule TAKE 1 CAPSULE BY MOUTH THREE TIMES DAILY NEEDED FOR COUGH active Not Available Not Available No t Available neomycin-po lymyxin-dex ameth 3.5 mg/mL-10,00 0 unit/mL-0.1 % eye drops INSTILL 1 DROP INTO RIGHT EYE 4 TIMES DAILY FOR 4 DAYS active Not Available Not Available No t Available fluoxetine 10 mg capsule TAKE 1 CAPSULE BY MOUTH ONCE DAILY active Not Available Not Available No t Available diclofenac sodium 75 mg tablet,lakeshia yed [...] DAY 6. TAKE ALL DOSES WITH FOOD. 06/15 completed Not Available Not Available Not Available methylpredn isolone 4 mg tablets in a dose pack TAKE ONE TABLET BY MOUTH PER PACKAGE DIRECTION S active Not Available Not Available No t Available bromphenira mine-pseudo ephedrine-D M 2 mg-30 mg-10 mg/5 mL oral syrup TAKE 10 ML (CC) BY MOUTH EVERY 8 HOURS NEEDED active Not Available Not Available No t Available ondansetron 4 mg disintegrat ing tablet active Not Available Not Available N ot Available fluoxetine 20 mg capsule TAKE 1 CAPSULE BY MOUTH ONCE DAILY active Not Available Not Available No t Available fluticasone propionate 50 mcg/actuati on nasal spray,suspe nsion USE 1 TO 2 SPRAY(S) IN EACH NOSTRIL ONCE DAILY active Not Available Not Available No t Available amoxicillin 875 mg-potassiu m clavulanate 125 mg tablet TAKE 1 TABLET BY MOUTH TWICE DAILY active Not Available Not Available No t Available Ventolin HFA 90 mcg/actuati on aerosol inhaler INHALE 2 PUFFS BY MOUTH EVERY 4 TO 6 HOURS active Not Available Not Available No t Available cyclobenzap rine 5 mg tablet active Not Available Not Available Not Available Vitals Date Recorded Body weight Body mass index (BMI) Body height Body temperature Oxygen saturation Oxygen saturation in Arterial blood by Pulse oximetry Heart rate Heart rate Systolic And Diastolic Provider Name and Address Organization Details Last Updated DateTime 4 76274.5 8 g 35.3 kg/m2 165.1 cm 98 [degF] 68 % 68 % 64 /min 66 /min 136/91 mm[Hg] Adilson Justice [place] [facility] [place] [facility] [place] 4 10:39:51 Date Recorded Body height Body mass index (BMI) Body weight Body temperature Oxygen saturation Oxygen saturation in Arterial blood by Pulse oximetry Heart rate Heart rate Systolic And Diastolic Provider Name and Address Organization Details Last Updated DateTime 165.1 cm 36 kg/m2 23712.6 7 g 98.2 [degF] 99 % 99 % 67 /min 65 /min 135/87 mm[Hg] Adilson MCFARLAND [facility] & [place] 13:39:01 Social History Question Answer Notes LastModified by Organizat ion Details LastModified Time Tobacco Smoking Status Former Smoker Adilson Justice [facility], [facility] & [place] 06/15/2024 10:42:26 What Is Your Level Of Caffeine Consumption? Moderate [email or web address] Information not available 06/15/2024 Which Illicit Or Recreational Drugs Have You Used? Cbd Information not available 06/15/2024 Have You Used IV Drugs? No [email or web address] Information not available 06/15/2024 Sex: Female Functional Status Question Answer Note LastModified by Organizat ion Details LastModified Time Do you use any illicit or recreational drugs? Yes [email or web address] Information not available 06/15/2024 What is your level of alcohol consumption? Occasional Information not available 06/15/2024 What is your occupation? [email or web address] Information not available 06/14/2024 Mental Status None recorded. Family History Nothing Reported. Medical History No medical history recorded. Gynecological HistoryNo gynecological history recorded. Obstetrics History GPAL:G 0 P 0 0 0 0 Past Encounters Encounter ID Performer Location Encounter Start Date Encounter Closed Date Diagnosis/Indication Diagnosis SNOMED-CT Code Diagnosis ICD10 Code Diagnosis Note [id number] IVETTE OTTO NP [facility] [address] [address] 06/15/2024 09:59:59 06/15/2024 11:07:12 Hepatitis B core antibody detected 671650600 R76.8 Nocturia 952469605 R35.1 [id number] IVETTE OTTO NP [facility] [address] [address] 08/10/2024 13:14:20 08/10/2024 16:06:25 Nocturia 646619226 R35.1 Hepatitis B immune 38818 1000 Z78.9 Screening for malignant neoplasm of colon 119526398 Z12.11 Health Concerns Section Related Observation LastModified by Organization Detai ls LastModified Time None Recorded Concern Status LastModified by Organization Details LastModified Time None Recorded Advance Directives Directive None Recorded Payers Insurance Date Sequence Insurance Name Policy Number Policy Alatorre Covered Member ID Alatorre Member ID Guarantor Name 08/07/2024 1 [employer] [facility] (MEDICAID HMO) Brendon Hubbard [id number] Brendon Hubbard OBGyn Episode No OBEpisode recorded.
== END 2025-05-16 23:59 | disposition home or self-care (01) ==
LOC: LAB.DROPOF 05-21 11:37
PROVIDERS: PCP Family Medicine; Visit Provider Family Medicine
DX: G47.33 Obstructive sleep apnea (adult) (pediatric) (principal); E53.9 Vitamin B deficiency, unspecified; E55.9 Vitamin D deficiency, unspecified; E66.811 Obesity, class 1; N81.89 Other female genital prolapse; R79.89 Other specified abnormal findings of blood chemistry; E03.9 Hypothyroidism, unspecified; E78.5 Hyperlipidemia, unspecified
CPT/HCPCS: 36415; 80053; 82306; 82607; 84443; 85025